=== PATIENT | male | born 1935 | race Caucasian/White ===

== ENCOUNTER → 2016-09-08 | Outpatient (CLI) | payer OTHER ==
[2016-09-08 12:38] LABS: ESTIMATED AVERAGE GLUCOSE 146 mg/dl; HA1C FLAG Normal (Normal)
[2016-09-08 12:58] LABS: ALT/SGPT 26 U/L (12-78); AST/SGOT 22 U/L (15-37); BLOOD UREA NITROGEN 13 mg/dl (7-18); BUN/CREATININE RATIO 13.5 (10-20); CALCIUM 9.1 mg/dl (8.5-10.1); CARBON DIOXIDE 27 mmol/L (21-32); CHLORIDE 103 mmol/L (98-107); CHOLESTEROL 112 mg/dl (0-200); CREATININE 0.96 mg/dl (0.60-1.40); GLUCOSE 169 mg/dl (70-99); POTASSIUM 3.9 mmol/L (3.5-5.1); SODIUM 137 mmol/L (136-145); TRIGLYCERIDES 89 mg/dl (0-150); VERY LOW DENSITY LIPOPROT CALC 18 mg/dl
[2016-09-08 13:01] LABS: ALB/GLOB RATIO 0.8 (0.9-2); ALKALINE PHOSPHATASE 67 U/L (45-117); CHOLESTEROL/HDL RATIO 2.7; HDL CHOLESTEROL 42 mg/dl; LDL CHOLESTEROL CALCULATED 52 mg/dl
[2016-09-08 13:09] LABS: RATIO 7.6 mcg/mg (0-30.0)
== END | disposition home or self-care (01) ==
LOC: C.LAB 11:37
PROVIDERS: ATTEND Family Medicine
DX: R73.09 Other abnormal glucose (principal)

== ENCOUNTER 2023-03-07 15:39 | Inpatient (IN) ==
--- NOTE | 2023-03-07 16:03 | ED Triage Note ---
Date of Service March 07, 2023 Provider in Triage Author: Juana Barajas History of Present Illness This patient was briefly evaluated while in triage. An abbreviated physical exam was performed. This patient is a 87-year-old Male who presents to the ED for evaluation of BLE edema and pain worsening over the last few days. Pt denies chest pain, or shob. Physical Exam Initial orders for labs and / or imaging were placed and patient was placed in the waiting area until a bed is available. Please see further documentation for the full ED course.
--- NOTE | 2023-03-07 17:03 | XRay Report ---
XR chest 1V not portable HISTORY: Lower extremity edema. COMPARISON: Chest 01/22/2022. FINDINGS: No pneumothorax. No focal lung consolidations to suggest a pneumonia. The heart remains enl arged. There is right greater than left interstitial/vascular thickening consistent with mild pulmona ry edema. There are small bilateral pleural effusions which have developed in the interval. Scattered calcified pleural plaques are again noted. There are degenerative changes within the shoulders. Righ t basilar linear densities favor subsegmental atelectasis. IMPRESSION: Cardiomegaly with interval development of mild interstitial pulmonary edema and small bilateral pleur al effusions. ACT 112: Negative or not required by law. Electronically signed by: Barry Zhong M.D. 03/07/2023 5:01 PM
--- NOTE | 2023-03-07 18:28 | Emergency Department Note ---
Impression & Plan Hypervolemia, Pulmonary edema, Bilateral cellulitis of lower leg ED Provider Note NAME: HUSSEIN SMART AGE: 87 SEX: M ARRIVES VIA: Walk-In INFORMANT: Patient ED PROVIDER(S): Byron Roberts MD CHIEF COMPLAINT: Leg swelling and redness, referred. PLAN: Disposition: Admit. MEDICAL DECISION MAKING: The patient is a pleasant 87-year-old gentleman with a past medical history of CHF, hypertension who presents to the emergency department via walk-in for evaluation of worsening bilateral lower extremity swelling and redness, referred by his PCP after concern was raised by his home physical therapist. The patient admits that he often forgets to take his medications which includes Lasix. He also does not weigh himself regularly. He does live home alone. He denies any recent fevers, chills, cough, congestion, GI or symptoms. Of note, the patient did arrive to emergency department during time of high volume, acuity and prolonged emergency department waiting times. Critical pathways initiated from triage. On my evaluation in the B pod hallway as the patient was waiting in the B pod subwait the patient is in no acute distress, afebrile with blood pressure 160s/70s in triage and vital signs otherwise stable. He appears hypervolemic with 2+ bilateral lower extremity pitting edema with mild erythema, warmth and superficial ulceration anteriorly of the lower legs bilaterally. There is increased serous weeping of the right lower extremity. EKG without overt acute ischemia. Chest x-ray demonstrates congestive change with mild pulmonary edema per my preliminary interpretation. WBC 4K, nonspecific. H/H within normal limits. Platelets 105K decreased from prior, nonspecific. Chemistry without metabolic acidosis. Electrolytes without significant abnormality. LFTs with total bilirubin 1.7, nonspecific and LFTs otherwise unremarkable. BNP is elevated at 300s consistent with the patient's hypervolemia. High-sensitivity troponin within normal limits. Procalcitonin undetectable. Treatment initiated with IV Lasix for hypervolemia. Cefepime and daptomycin ordered for initial treatment of bilateral lower extremity cellulitis. Given the patient's hypervolemia with development of suspected superimposed cellulitis the patient does agree with plan for admission for further management. Case was discussed with Dr. Srivastava, [facility], who will evaluate the patient for admission. Triage Nursing notes reviewed and agree them. Prior/external medical records reviewed Vital Signs: reviewed Differential diagnosis: Cellulitis, abscess, MRSA infection, DVT, necrotizing fasciitis, dermatitis, drug eruption, allergic reaction, as well as other pathologies. ER treatment provided: See below. Diagnostics interpreted by me: ECG: Sinus rhythm first-degree block, 76 bpm. PVCs, left anterior fascicular block, no overt ST elevation or depression, QTc 510, QRS 90. Cardiac Monitoring: An order for continuous cardiac monitoring was placed and demonstrated Sinus rhythm first-degree block, 76 bpm. PVCs. Laboratory studies: See below Imaging studies: See below Consultation(s): Case was discussed with Dr. Srivastava, [facility] hospitalist, who will evaluate the patient for admission. HPI: The patient is a pleasant 87-year-old gentleman with a past medical history of CHF, hypertension who presents to the emergency department via walk-in for evaluation of worsening bilateral lower extremity swelling and redness, referred by his PCP after concern was raised by his home physical therapist. The patient admits that he often forgets to take his medications which includes Lasix. He also does not weigh himself regularly. He does live home alone. He denies any recent fevers, chills, cough, congestion, GI or symptoms. ROS: See above HPI for pertinent positives & negatives. A total of 10 systems reviewed and were otherwise negative. VITALS:See Below PHYSICAL EXAMINATION: GENERAL: Awake, alert, chronically ill-appearing, in no distress HENT: Normocephalic, atraumatic. Oropharynx unremarkable. EYES: Normal conjunctiva. Sclera non-icteric. NECK: Supple. No nuchal rigidity. FROM. No JVD. RESPIRATORY: Diminished at bases and otherwise clear to auscultation. CARDIAC: Regular rate, normal rhythm. Extremities warm and well perfused. Pulses equal. ABDOMEN: Soft, non-distended. No tenderness to palpation. No rebound or guarding. No masses. RECTAL: Deferred. MUSCULOSKELETAL: Chest examination reveals no tenderness. The back is symmetrical on inspection without obvious abnormality. There is no CVA tenderness to palpation. No joint edema. LOWER EXTREMITIES: 2+ bilateral lower extremity pitting edema with mild erythema, warmth and superficial ulceration anteriorly of the lower legs bilaterally. There is increased serous weeping of the right lower extremity. NEURO: Normal sensorium. No sensory or motor deficits noted. SKIN: No rash or jaundice noted. Byron E Cross, MD Past Med/Surg History Medical History Hypertension CHF (congestive heart failure) Social History Smoking Status: Never smoker Hx Alcohol Use: Yes Alcohol type: beer Hx Substance Use: No Preferred Language: Romanian Rib Matcher And Fitter Required: No Beliefs That Will Affect Care: None Current Living Situation: Alone Feels Safe at Home: Yes Assistive Devices: Walker Allergies Allergies Allergy/AdvReac Type Severity Reaction Status Date / Time No Known Allergies Allergy Unverified 03/07/23 21:07 Home Meds Home Medications Medication Instructions Recorded Confirmed atenolol 25 mg tablet 25 mg PO QAM 09/07/20 03/07/23 furosemide 40 mg tablet 40 mg PO BID 09/07/20 03/07/23 baclofen 10 mg tablet 5 mg PO TID 03/07/23 03/07/23 citalopram 20 mg tablet 20 mg PO HS 03/07/23 03/07/23 folic acid 1 mg tablet 1 mg PO QAM 03/07/23 03/07/23 metformin 500 mg tablet 500 mg PO QAM 03/07/23 03/07/23 naproxen sodium 220 mg tablet 220 mg PO QAM 03/07/23 03/07/23 spironolactone 25 mg tablet 50 mg PO BID 03/07/23 03/07/23 Results & Data (ED) Vital Signs Vital Signs - 24 hr 03/07/23 15:58 03/07/23 19:52 Temperature 36.3 C L Temperature Source Temporal Artery Scan Pulse Rate 60 50 L Respiratory Rate 20 Respiratory Effort / Characteristics Non-Labored Spontaneous Respiratory Depth Normal Respiratory Pattern Regular Blood Pressure 167/75 H Blood Pressure Mean 105 Pulse Oximetry 96 Oxygen Delivery Method Room Air Sepsis Recent Fever Within 48 Hours No Sepsis New/Unexplained Change in Mental Status No Sepsis Action Taken by Nursing No Action Required Laboratory Data Attestation: I reviewed the patient's lab results. 03/07/23 17:56 03/07/23 17:56 Lab Results 03/07/23 03/07/23 Range/Units 17:56 20:25 WBC 4.05 L (4.8-10.8) K/ul RBC 4.85 (4.70-6.10) M/uL Hgb 16.0 (14.0-18.0) g/dl Hct 47.2 (42.0-52.0) % MCV 97.3 (80.0-100.0) fL MCH 33.0 (25.0-34.0) pg MCHC 33.9 (32.0-36.0) g/dL RDW Std Deviation 47.7 H (36.4-46.3) fL RDW Coeff of Keegan 13.3 (11.5-14.5) % Plt Count 105 L (130-400) K/uL MPV 10.1 (9.4-12.4) fL Immature Gran % (Auto) 0.5 % Neut % (Auto) 62.2 % Lymph % (Auto) 23.7 % [place] % (Auto) 9.1 % Eos % (Auto) 4.0 % Baso % (Auto) 0.5 % Neut # (Auto) 2.52 (1.40-6.50) K/uL Lymph # (Auto) 0.96 L (1.20-3.40) K/uL [place] # (Auto) 0.37 (0.11-0.59) K/uL Eos # (Auto) 0.16 (0.00-0.50) K/uL Baso # (Auto) 0.02 (0.00-0.20) K/uL Immature Gran # (Auto) 0.02 (0.01-0.20) K/uL Sodium 133 L (136-145) mmol/L Potassium 4.3 (3.5-5.1) mmol/L Chloride 100 (98-107) mmol/L Carbon Dioxide 26 (21-32) mmol/L Anion Gap 7 (3-11) BUN 14 (6-23) mg/dl Creatinine 0.70 (0.6-1.4) mg/dl Est Cr Clr Drug Dosing 96.7 ml/min Est GFR ( Amer) 98.3 ml/min Est GFR (Non-Af Amer) 84.9 ml/min BUN/Creatinine Ratio 20.0 (10-20) Glucose 110 H (70-99(Fasting)) mg/dl Calcium 9.3 (8.6-10.3) mg/dl Total Bilirubin 1.7 H (0.2-1.0) mg/dl AST 33 (13-39) U/L ALT 16 (7-52) U/L Alkaline Phosphatase 112 H (34-104) U/L Troponin I High Sens 5.8 (0-20) pg/ml B-Natriuretic Peptide 303 H (0-100) pg/ml Total Protein 7.6 (6.0-8.3) gm/dl Albumin 3.9 (3.4-5.0) gm/dl Globulin 3.7 (2.5-4.0) gm/dl Albumin/Globulin Ratio 1.1 (0.9-2) Procalcitonin < 0.05 (0-0.5) ng/ml Administered Medications Baclofen (Baclofen 10 Mg Tab) 5 mg PO TID [facility] Stop: 04/06/23 22:19 Last Admin: 03/08/23 00:34 Dose: 5 mg Documented By: DUNIA Citalopram Hydrobromide (Citalopram 20 Mg Tab) 20 mg PO HS [facility] Stop: 04/06/23 22:19 Last Admin: 03/08/23 00:33 Dose: 20 mg Documented By: DUNIA Enoxaparin Sodium (Enoxaparin Inj 40 Mg/0.4 Ml Syr) 40 mg SQ HS [facility] Stop: 04/06/23 22:44 Last Admin: 03/08/23 00:33 Dose: 40 mg Documented By: DUNIA Daptomycin 550 mg/ Syringe 11 mls @ 5.5 mls/min IV Q24H [facility]; Protocol Stop: 03/09/23 19:14 Last Admin: 03/07/23 19:49 Dose: 5.5 mls/min Documented By: BOBBY Insulin Aspart (Insulin Aspart Per Unit Charge) 0 units SC [facility] Stop: 04/06/23 22:19 Last Admin: 03/08/23 00:45 Dose: Not Given Documented By: DUNIA Spironolactone (Spironolactone 25 Mg Tab) 50 mg PO BID17 [facility] Stop: 04/06/23 22:19 Last Admin: 03/08/23 00:34 Dose: 50 mg Documented By: DUNIA Discontinued Medications Furosemide (Furosemide 40 Mg/4 Ml Vial) 40 mg IV ONE ONE Stop: 03/07/23 19:07 Last Admin: 03/07/23 19:49 Dose: 40 mg Documented By: BOBBY Cefepime HCl (Maxipime) 2,000 mg in 20 mls @ 5 mls/min IV NOW STA; Protocol Stop: 03/07/23 19:17 Last Admin: 03/07/23 19:49 Dose: 5 mls/min Documented By: BOBBY Imaging Data Radiologist's Impression: Chest X-Ray 03/07/23 16:03 XR chest 1V not portable HISTORY: Lower extremity edema. COMPARISON: Chest 01/22/2022. FINDINGS: No pneumothorax. No focal lung consolidations to suggest a pneumonia. The heart remains enlarged. There is right greater than left interstitial/vascular thickening consistent with mild pulmonary edema. There are small bilateral pleural effusions which have developed in the interval. Scattered calcified pleural plaques are again noted. There are degenerative changes within the shoulders. Right basilar linear densities favor subsegmental atelectasis. IMPRESSION: Cardiomegaly with interval development of mild interstitial pulmonary edema and small bilateral pleural effusions. ACT 112: Negative or not required by law. Electronically signed by: Barry Zhong M.D. 03/07/2023 5:01 PM Discharge Plan Visit Data Chief Complaint: Leg Injury/Pain Stated Complaint: ?CELLULITIS IN BOTH LEGS ED Provider: Byron Roberts Discharge Problem: Hypervolemia, Pulmonary edema, Bilateral cellulitis of lower leg Patient Disposition: Admitted As Inpatient Discharge Instructions Interventions: ED Discharge Assessment Last Done: 03/07/23 22:21 Discharge Problem: Hypervolemia Qualifiers: Hypervolemia type: unspecified Qualified Code(s): E87.70 - Fluid overload, unspecified Pulmonary edema Qualifiers: Chronicity: acute Qualified Code(s): J81.0 - Acute pulmonary edema
[2023-03-07 18:31] LABS: Albumin Globulin Ratio 1.1 (0.9-2); Albumin Level 3.9 gm/dl (3.4-5.0); Bilirubin,Total 1.7 mg/dl (0.2-1.0); Calcium 9.3 mg/dl (8.6-10.3); Creatinine Clr Calc Pharmacy 96.7 ml/min; Est GFR (African American) 98.3 ml/min; Est GFR (Non-African American) 84.9 ml/min; Globulin 3.7 gm/dl (2.5-4.0); Potassium 4.3 mmol/L (3.5-5.1); Total Protein 7.6 gm/dl (6.0-8.3)
[2023-03-07 18:34] LABS: Basophils # (auto) 0.02 K/uL (0.00-0.20); Basophils % (auto) 0.5 %; Eosinophils # (auto) 0.16 K/uL (0.00-0.50); Hematocrit (blood only) 47.2 % (42.0-52.0); Immature Granulocytes # (auto) 0.02 K/uL (0.01-0.20); Immature Granulocytes % (auto) 0.5 %; Lymphocytes # (auto) 0.96 K/uL (1.20-3.40); Lymphocytes % (auto) 23.7 %; Mean Corpuscular Hgb Conc 33.9 g/dL (32.0-36.0); Mean Corpuscular Volume 97.3 fL (80.0-100.0); Mean Platelet Volume 10.1 fL (9.4-12.4); Monocytes # (auto) 0.37 K/uL (0.11-0.59); Monocytes % (auto) 9.1 %; Neutrophils # (auto) 2.52 K/uL (1.40-6.50); Neutrophils % (auto) 62.2 %; Platelet Count 105 K/uL (130-400); RDW Coefficient of Variation 13.3 % (11.5-14.5); RDW Standard Deviation 47.7 fL (36.4-46.3); Red Blood Count 4.85 M/uL (4.70-6.10); White Blood Count 4.05 K/ul (4.8-10.8)
[2023-03-07] MEDS ORDERED: FUROSEMIDE 40 MG/4 ML VIAL IV ONE (19:06)
[2023-03-07] MEDS ORDERED: CEFEPIME 2,000 MG/20 ML VIAL IV STA (19:14)
[2023-03-07] MEDS ORDERED: DAPTOmycin 550 MG in SYRINGE 0 ML IV SCH (19:15)
[2023-03-07 20:05] LABS: Troponin I High Sensitivity 5.8 pg/ml (0-20)
--- NOTE | 2023-03-07 21:25 | History & Physical Report ---
Date of Service March 07, 2023 Assessment & Plan (1) Acute CHF: Plan: 87-year-old male with past medical history significant for hypertension, diabetes, CHF, depression, ambulatory dysfunction comes because of worsening lower extremity edema. Lower extremity edema getting worse lately. Seems to referred by PCP when physical therapy was concerned about his lower extreme edema. Ambulates with a walker. Patient denies any chest pain. Patient denies a Acute CHF Possible acute diastolic CHF Seems forgetting his Lasix Placed on IV Lasix 40 mg twice daily Continue home spironolactone Daily weights I's and O's Echocardiogram Telemetry floor Consult cardiology in a.m. for further recommendations Diabetes Hold metformin Sliding scale Follow the blood sugars and HbA1c levels Hypertension On atenolol and diuretics Will monitor Obesity May need sleep study Ambulatory dysfunction PT OT when stable DVT prophylaxis Lovenox Disposition Telemetry floor Full code History of Present Illness Chief Complaint: Worsening lower extremity edema Primary Care Provider: Mahi Arvizu MD 87-year-old male with past medical history significant for hypertension, diabetes, CHF, depression, ambulatory dysfunction comes because of worsening lower extremity edema. Lower extremity edema getting worse lately. Seems to referred by PCP when physical therapy was concerned about his lower extreme edema. Ambulates with a walker. Patient denies any chest pain. Patient denies any shortness of breath. No headache. Has some runny nose. No sore throat or cough. No fevers. No nausea. No abdominal pain. Normal bowel and bladder movements. Currently resting comfortably and hemodynamically stable. Past medical history. As mentioned above Past surgical history patient denies any surgeries Social history. States quit smoking 40 years ago. Drinks about 6-7 beers in a week mostly on weekends. Family history. Father. Alcoholism. Allergies Allergy/AdvReac Type Severity Reaction Status Date / Time No Known Allergies Allergy Unverified 03/07/23 21:07 Home Medications Medication Instructions Recorded Confirmed Type atenolol 25 mg tablet 25 mg PO QAM 09/07/20 03/07/23 History furosemide 40 mg tablet 40 mg PO BID 09/07/20 03/07/23 History baclofen 10 mg tablet 5 mg PO TID 03/07/23 03/07/23 History citalopram 20 mg tablet 20 mg PO HS 03/07/23 03/07/23 History folic acid 1 mg tablet 1 mg PO QAM 03/07/23 03/07/23 History metformin 500 mg tablet 500 mg PO QAM 03/07/23 03/07/23 History naproxen sodium 220 mg tablet 220 mg PO QAM 03/07/23 03/07/23 History spironolactone 25 mg tablet 50 mg PO BID 03/07/23 03/07/23 History Past Med/Surg History Medical History Hypertension CHF (congestive heart failure) Social History Smoking Status: Never smoker Hx Alcohol Use: Yes Alcohol type: beer Hx Substance Use: No Preferred Language: Romanian Granulator Operator Required: No Beliefs That Will Affect Care: None Current Living Situation: Alone Feels Safe at Home: Yes Assistive Devices: Walker Review of Systems Review of Systems: All systems reviewed & are unremarkable except as noted in HPI & below Physical Exam Physical Exam: General- Not in distress Head- atraumatic Eyes- PERRL. ENT- oropharynx clear Neck- supple, no JVD. Lungs- clear to auscultation no wheezing or crackles. Heart- regular rate and rhythm; no murmur, no gallop. Abdomen- normal bowel sounds, soft, nontender, no distension. Extremities- b/l gross lower extremity edema present with mild erythematous changes with some superficial ulcer on right lee Neuro- alert, oriented x 3; PERRL, no facial palsy; no dysarthria; moves extremities. Skin- warm & dry Results & Data Results & Data Vital Signs (Past 12 Hours) Vital Signs Temp Pulse Resp BP Pulse Ox O2 Del Method 03/07/23 19:52 50 L 03/07/23 15:58 36.3 C L 60 20 167/75 H 96 Room Air Diagnostic Findings Laboratory Results WBC 4.05 K/ul (4.8-10.8) L 03/07/23 17:56 RBC 4.85 M/uL (4.70-6.10) 03/07/23 17:56 Hgb 16.0 g/dl (14.0-18.0) 03/07/23 17:56 Hct 47.2 % (42.0-52.0) 03/07/23 17:56 MCV 97.3 fL (80.0-100.0) 03/07/23 17:56 MCH 33.0 pg (25.0-34.0) 03/07/23 17:56 MCHC 33.9 g/dL (32.0-36.0) 03/07/23 17:56 RDW Std Deviation 47.7 fL (36.4-46.3) H 03/07/23 17:56 RDW Coeff of Keegan 13.3 % (11.5-14.5) 03/07/23 17:56 Plt Count 105 K/uL (130-400) L 03/07/23 17:56 MPV 10.1 fL (9.4-12.4) 03/07/23 17:56 Immature Gran % (Auto) 0.5 % 03/07/23 17:56 Neut % (Auto) 62.2 % 03/07/23 17:56 Lymph % (Auto) 23.7 % 03/07/23 17:56 [place] % (Auto) 9.1 % 03/07/23 17:56 Eos % (Auto) 4.0 % 03/07/23 17:56 Baso % (Auto) 0.5 % 03/07/23 17:56 Neut # (Auto) 2.52 K/uL (1.40-6.50) 03/07/23 17:56 Lymph # (Auto) 0.96 K/uL (1.20-3.40) L 03/07/23 17:56 [place] # (Auto) 0.37 K/uL (0.11-0.59) 03/07/23 17:56 Eos # (Auto) 0.16 K/uL (0.00-0.50) 03/07/23 17:56 Baso # (Auto) 0.02 K/uL (0.00-0.20) 03/07/23 17:56 Immature Gran # (Auto) 0.02 K/uL (0.01-0.20) 03/07/23 17:56 Sodium 133 mmol/L (136-145) L 03/07/23 17:56 Potassium 4.3 mmol/L (3.5-5.1) 03/07/23 17:56 Chloride 100 mmol/L (98-107) 03/07/23 17:56 Carbon Dioxide 26 mmol/L (21-32) 03/07/23 17:56 Anion Gap 7 (3-11) 03/07/23 17:56 BUN 14 mg/dl (6-23) 03/07/23 17:56 Creatinine 0.70 mg/dl (0.6-1.4) 03/07/23 17:56 Est Cr Clr Drug Dosing 96.7 ml/min 03/07/23 17:56 Est GFR ( Amer) 98.3 ml/min 03/07/23 17:56 Est GFR (Non-Af Amer) 84.9 ml/min 03/07/23 17:56 BUN/Creatinine Ratio 20.0 (10-20) 03/07/23 17:56 Glucose 110 mg/dl (70-99(Fasting)) H 03/07/23 17:56 Calcium 9.3 mg/dl (8.6-10.3) 03/07/23 17:56 Total Bilirubin 1.7 mg/dl (0.2-1.0) H 03/07/23 17:56 AST 33 U/L (13-39) 03/07/23 17:56 ALT 16 U/L (7-52) 03/07/23 17:56 Alkaline Phosphatase 112 U/L (34-104) H 03/07/23 17:56 Troponin I High Sens 5.8 pg/ml (0-20) 03/07/23 17:56 B-Natriuretic Peptide 303 pg/ml (0-100) H 03/07/23 17:56 Total Protein 7.6 gm/dl (6.0-8.3) 03/07/23 17:56 Albumin 3.9 gm/dl (3.4-5.0) 03/07/23 17:56 Globulin 3.7 gm/dl (2.5-4.0) 03/07/23 17:56 Albumin/Globulin Ratio 1.1 (0.9-2) 03/07/23 17:56 Procalcitonin < 0.05 ng/ml (0-0.5) 03/07/23 20:25 Impressions Chest X-Ray 03/07/23 16:03 XR chest 1V not portable HISTORY: Lower extremity edema. COMPARISON: Chest 01/22/2022. FINDINGS: No pneumothorax. No focal lung consolidations to suggest a pneumonia. The heart remains enlarged. There is right greater than left interstitial/vascular thickening consistent with mild pulmonary edema. There are small bilateral pleural effusions which have developed in the interval. Scattered calcified pleural plaques are again noted. There are degenerative changes within the shoulders. Right basilar linear densities favor subsegmental atelectasis. IMPRESSION: Cardiomegaly with interval development of mild interstitial pulmonary edema and small bilateral pleural effusions. ACT 112: Negative or not required by law. Electronically signed by: Barry Zhong M.D. 03/07/2023 5:01 PM ECG Additional Comments: ECG. Sinus rhythm with first-degree AV block with PVCs or fusion complexes at a rate of 76. Left anterior fascicle block. QTc 510 Code Status & VTE Plan VTE Prophylaxis Plan VTE Prophylaxis will be ordered: Yes
[2023-03-07] MEDS ORDERED: GLUCOSE 10 TAB/TUBE PO PRN (22:20)
[2023-03-07] MEDS ORDERED: NITROGLYCERIN SL 0.4 MG/TAB TAB SL PRN (22:20)
[2023-03-07] MEDS ORDERED: GLUCOSE 40% GEL 15 GM TUBE PO PRN (22:20)
[2023-03-07] MEDS ORDERED: GLUCAGON FOR INJ 1 MG VIAL SQ PRN (22:20)
[2023-03-07] MEDS ORDERED: POLYETHYLENE (MIRALAX) 17 GM PACK PO PRN (22:20)
[2023-03-07] MEDS ORDERED: CARBOHYDRATES FOR HYPOGLYCEMIA PO PRN (22:20)
[2023-03-07] MEDS ORDERED: DEXTROSE 50% 50 ML SYRINGE IV PRN (22:20)
[2023-03-08] MEDS: ENOXAPARIN INJ 40 MG/0.4 ML SYR SQ SCH ×2 (00:33→19:55)
[2023-03-08] MEDS: CITALOPRAM 20 MG TAB PO SCH ×2 (00:33→19:55)
[2023-03-08] MEDS: BACLOFEN 10 MG TAB PO SCH ×4 (00:34→19:55)
[2023-03-08] MEDS: SPIRONOLACTONE 25 MG TAB PO SCH ×3 (00:34→17:34)
[2023-03-08] MEDS: INSULIN ASPART PER UNIT CHARGE SC SCH ×5 (00:45→21:41)
[2023-03-08 06:20] LABS: Basophils # (auto) 0.02 K/uL (0.00-0.20); Basophils % (auto) 0.4 %; Eosinophils # (auto) 0.19 K/uL (0.00-0.50); Eosinophils % (auto) 4.1 %; Hematocrit (blood only) 41.2 % (42.0-52.0); Hemoglobin 14.2 g/dl (14.0-18.0); Immature Granulocytes # (auto) 0.01 K/uL (0.01-0.20); Immature Granulocytes % (auto) 0.2 %; Lymphocytes # (auto) 0.96 K/uL (1.20-3.40); Lymphocytes % (auto) 20.5 %; Mean Corpuscular Hemoglobin 33.1 pg (25.0-34.0); Mean Corpuscular Hgb Conc 34.5 g/dL (32.0-36.0); Mean Platelet Volume 9.9 fL (9.4-12.4); Monocytes # (auto) 0.48 K/uL (0.11-0.59); Monocytes % (auto) 10.2 %; Neutrophils # (auto) 3.03 K/uL (1.40-6.50); Neutrophils % (auto) 64.6 %; Platelet Count 117 K/uL (130-400); RDW Coefficient of Variation 13.4 % (11.5-14.5); RDW Standard Deviation 47.5 fL (36.4-46.3); Red Blood Count 4.29 M/uL (4.70-6.10); White Blood Count 4.69 K/ul (4.8-10.8)
[2023-03-08 06:27] LABS: BUN Creatinine Ratio 18.7 (10-20); Calcium 8.6 mg/dl (8.6-10.3); Creatinine Clr Calc Pharmacy 90.3 ml/min; Est GFR (African American) 95.6 ml/min; Est GFR (Non-African American) 82.5 ml/min; Magnesium 1.7 mg/dl (1.7-2.4); Potassium 3.7 mmol/L (3.5-5.1)
[2023-03-08 06:41] LABS: Troponin I High Sensitivity 10.1 pg/ml (0-20)
[2023-03-08 07:39] LABS: Estimated Average Glucose 123 mg/dl; Hemoglobin A1C 5.9 % (4.5-5.6)
--- NOTE | 2023-03-08 08:15 | Electrocardiogram Report ---
Test Reason : Blood Pressure : / mmHG Vent. Rate : 076 BPM Atrial Rate : 076 BPM P-R Int : 310 ms QRS Dur : 090 ms QT Int : 454 ms P-R-T Axes : 057 -45 000 degrees QTc Int : 510 ms Sinus rhythm with 1st degree A-V block with Premature ventricular complexes Left anterior fascicular block Poor R wave progression, consider anterior LA vs. lead placement vs. LVH Abnormal ECG When compared with ECG of 22-JAN-2022 22:22, Premature ventricular complexes now present Confirmed by Kumar Love ([id number]) on 03/08/2023 8:15:09 AM Referred By: REFERRED SELF Confirmed By:Kumar Love
[2023-03-08] MEDS ORDERED: ATENOLOL 25 MG TABLET PO SCH (09:00)
[2023-03-08] MEDS: cefTRIAXone SODIUM 2,000 MG in DEXTROSE 5 % MINI-B 50 ML IV SCH (09:16)
[2023-03-08] MEDS: FOLIC ACID 1 MG TAB PO SCH (09:16)
[2023-03-08] MEDS: FUROSEMIDE 40 MG/4 ML VIAL IV SCH ×2 (09:17→17:33)
--- NOTE | 2023-03-08 11:11 | Cardiology Consultation ---
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 HS troponin negative x2 BNP minimally elevated Chest xray with small b/l pleural effusions. Furosemide 40 mg IV BID initiated yesterday. Continue Monitor renal function. Mild hyponatremia noted yesterday, improving today with diuresis. Supplement potassium as needed Monitor I+O's Fluid restriction of 1500 ml Continue spironolactone Evidence of intermittent possible 2nd degree AV block, Wenckebach. At times appears to be a 2:1 (possible 3rd degree) AV block. Stop atenolol Monitor. Patient admits he does not want aggressive testing or invasive procedures. He is asymptomatic. Evidence of LE cellulitis - continue antibiotics per hospitalist. Hypertension - -may need additional antihypertensives with stopping atenolol. -Continue furosemide/spironolactone for now Consider palliative care consult based on patient's wishes of not wanting any aggressive testing/measures. He is reporting "I just want to ". He also may not be able to return home? May need to consider placement Case discussed with Dr. Negrete I spent a total of 60 minutes on the date of service in preparation, delivery, and documentation of the care provided to this patient, excluding any time spent in the performance of separately billed services. Dara Dobbs PA-C Department of Cardiology, [facility] This chart was completed in part utilizing Speech Voice Recognition Software. Grammatical errors, random word insertions, pronoun errors, and incomplete sentences are an occasional consequence of this system due to software limitations, ambient noise, and hardware issues. Any formal questions or concerns about the content, text, or information contained within the body of this dictation should be directly addressed to the provider for clarification. Supervising Physician Co-Signing Physician Notes Attending attestation: I have reviewed the advanced practitioner's documentation and agree with the plan of care. I accept the responsibility for the associated risk of managing the patient. Subjective: Patient in good spirits. Notes that he takes furosemide for lower extremity edema but it has been progressively worse recently. Denies chest discomfort, shortness of breath, lightheadedness or dizziness. Exam: Pulmonary: Lungs clear to auscultation bilaterally Cardiovascular: Bradycardic, no murmurs, 2+ lower extremity edema with excoriations Data: Echocardiogram performed today revealed mild concentric left ventricular hypertrophy, no regional wall motion abnormality, LVEF normal in the range of 55 to 60%, the pulmonary artery systolic pressure is estimated to be 41 mmHg (mildly elevated).The Doppler assessment for diastolic dysfunction is indeterminate due to the irregular rhythm EKG and telemetry data reviewed: Tracings are technically limited due to the presence of baseline artifact. At times patient appears to be in a sinus rhythm with first-degree AV block with frequent PACs. However intermittent 2: 1 AV block appears to be present as well as type I second-degree AV block (Wenckebach block). The presence of intermittent third-degree AV block cannot be excluded. Impression/ Plan: Lower extremity edema, perhaps related to diastolic dysfunction, or venous insufficiency: Agree with furosemide and empiric antibiotics Bradycardia: Hold atenolol Patient hemodynamically stable with no symptoms suggestive of symptomatic bradycardia. The patient's first impression is that he would not want to have an invasive procedure performed such as a pacemaker but on further discussion with me he stated that he would like to think about things more. I spent a total of 20 minutes coordinating, documenting, and providing care for this patient excluding time spent in the performance of separately billed services or time spent by another provider. Asher Negrete DO History of Present Illness Reason for Consultation: LE edema; CHF Requesting Physician: Dr. Cabello Attending Physician: Jesús Cabello MD History of Present Illness Patient is an 87 year old male who presented to [facility] upon recommendations from his PCP and home health/PT for worsening LE edema. He is a poor historian. No significant information in outpatient records. Patient denies cardiovascular history of CAD, PR, CHF, arrhythmia. He has never seen a receiver setter. He reports he stopped taking all his home medications "a long time ago". He reports he just "wants to ". He is unable to tell me his medications but he is able to let me know he should have been taking a "water pill" but stopped this. Patient reports he had home PT the other day. The physical therapist was concerned with his legs and open ulcerations. Later in the day he received a call from his family doctor instructing him to come to the ER. He lives in a an apartment below his daughters house but admits he "does not see her very often". Lives alone otherwise. At time of consult, patient resting in bed. He admits to ongoing LE edema but denies other symptoms of SOB, CP, dizziness or lightheadedness. He admits he does not want alot of testing or anything done. Earlier today there was concern regarding episode of bradycardia where is HR dropped in the 40's. Patient was sleeping during this time and asymptomatic. EKG was obtained which demonstrated possible 2:1 AV block (2nd vs 3rd degree). He did receive morning atenolol this morning, which was reported on home med list. But patient admits he was not taking. BNP mildly elevated but not when based on age. HS troponin negative x2 since admission. Chest xray with mild pulm vascular congestion, small b/l pleural effusions. Allergies Allergy/AdvReac Type Severity Reaction Status Date / Time No Known Allergies Allergy Unverified 03/07/23 21:07 Home Medications Medication Instructions Recorded Confirmed Type atenolol 25 mg tablet 25 mg PO QAM 09/07/20 03/07/23 History furosemide 40 mg tablet 40 mg PO BID 09/07/20 03/07/23 History baclofen 10 mg tablet 5 mg PO TID 03/07/23 03/07/23 History citalopram 20 mg tablet 20 mg PO HS 03/07/23 03/07/23 History folic acid 1 mg tablet 1 mg PO QAM 03/07/23 03/07/23 History metformin 500 mg tablet 500 mg PO QAM 03/07/23 03/07/23 History naproxen sodium 220 mg tablet 220 mg PO QAM 03/07/23 03/07/23 History spironolactone 25 mg tablet 50 mg PO BID 03/07/23 03/07/23 History Patient History Medical History Hypertension CHF (congestive heart failure) Social History Smoking Status: Never smoker Hx Alcohol Use: Yes Alcohol type: beer Hx Substance Use: No Preferred Language: Cuban Communication Ability: Effective Patient Services Manager Required: No Beliefs That Will Affect Care: None Current Living Situation: Alone Feels Safe at Home: Yes Assistive Devices: Walker Review of Systems Review of Systems: All systems reviewed & are unremarkable except as noted in HPI & below Physical Exam Constitutional: WD/WN, vitals as above + morbidly obese Respiratory: no respiratory distress Auscultation: + diminished lung sounds (faint bibasilar rales) Cardiovascular: Rate/Rhythm: regular rate Heart Sounds: no murmur (No audible murmurs) Extremities: + edema (2+ LE edema with b/l erythema with small ulcerations on pretibial region) Gastrointestinal (Abdomen): normal bowel sounds, soft, nontender, no hepatosplenomegaly Neurologic: PERRL, EOMI, accommodation nl, no face palsy, no dysarthria Results & Data Vital Signs (Past 12 Hours) Vital Signs Temp Pulse Pulse Resp BP BP Pulse Ox 03/08/23 10:15 48 L 16 153/51 H 96 03/08/23 09:15 79 18 141/74 H 98 03/08/23 07:39 67 29 H 147/67 H 96 03/08/23 07:39 36.7 C 67 20 147/67 H 98 03/08/23 07:32 66 24 150/107 H 92 03/08/23 07:11 53 L 03/08/23 04:00 61 26 H 145/64 H 90 03/08/23 03:00 62 26 H 147/61 H 92 03/08/23 03:00 03/08/23 02:02 57 L 24 155/56 H 92 03/08/23 00:42 60 26 H 162/59 H 94 03/07/23 23:37 58 L 03/07/23 23:37 65 22 148/84 H 94 O2 Del Method O2 Flow Rate 03/08/23 10:15 Nasal Cannula 2 03/08/23 09:15 Nasal Cannula 2 03/08/23 07:39 03/08/23 07:39 Nasal Cannula 3 03/08/23 07:32 Room Air 03/08/23 07:11 03/08/23 04:00 03/08/23 03:00 03/08/23 03:00 Room Air 03/08/23 02:02 03/08/23 00:42 03/07/23 23:37 03/07/23 23:37 Room Air Laboratory Results Cardiac Enzymes 03/07/23 03/08/23 Range/Units 17:56 05:21 AST 33 (13-39) U/L Troponin I High Sens 5.8 10.1 D (0-20) pg/ml B-Natriuretic Peptide 303 H (0-100) pg/ml Coagulation 03/07/23 Range/Units 17:56 B-Natriuretic Peptide 303 H (0-100) pg/ml CBC 03/07/23 03/08/23 Range/Units 17:56 05:21 WBC 4.05 L 4.69 L (4.8-10.8) K/ul RBC 4.85 4.29 L (4.70-6.10) M/uL Hgb 16.0 14.2 (14.0-18.0) g/dl Hct 47.2 41.2 L (42.0-52.0) % Plt Count 105 L 117 L (130-400) K/uL Neut # (Auto) 2.52 3.03 (1.40-6.50) K/uL Lymph # (Auto) 0.96 L 0.96 L (1.20-3.40) K/uL [place] # (Auto) 0.37 0.48 (0.11-0.59) K/uL Eos # (Auto) 0.16 0.19 (0.00-0.50) K/uL Baso # (Auto) 0.02 0.02 (0.00-0.20) K/uL Comprehensive Metabolic Panel 03/07/23 03/08/23 Range/Units 17:56 05:21 Sodium 133 L 135 L (136-145) mmol/L Potassium 4.3 3.7 (3.5-5.1) mmol/L Chloride 100 99 (98-107) mmol/L Carbon Dioxide 26 28 (21-32) mmol/L BUN 14 14 (6-23) mg/dl Creatinine 0.70 0.75 (0.6-1.4) mg/dl Glucose 110 H 114 H (70-99(Fasting)) mg/dl Calcium 9.3 8.6 (8.6-10.3) mg/dl AST 33 (13-39) U/L ALT 16 (7-52) U/L Alkaline Phosphatase 112 H (34-104) U/L Total Protein 7.6 (6.0-8.3) gm/dl Albumin 3.9 (3.4-5.0) gm/dl Intake and Output 03/07/23 03/08/23 03/08/23 22:59 06:59 14:59 Intake Total 50 / 50 Balance 50 / 50 Intake: IV 50 / 50 cefTRIAXone SODIUM 2,000 mg In 50 / 50 Dextrose 5 % Mini-B 50 ml @ 100 mls/hr IV Q24H [facility] Rx#: [id number] Other: Weight 120.4 kg 120.4 kg Weight Measurement Method Chair Scale Chair Scale Diagnostic Findings Telemetry reviewed: Sinus rhythm with intermittent 2nd degree (possible Wenckebach) vs intermittent 2:1 (possible 3rd degree AV block) noted. HR ranging 40-70's. No pauses. Patient has been asymptomatic. Echocardiogram reviewed from 03/08/23: Mild concentric LVH Normal LVEF at 55-60% Normal wall motion Elevated pulm pressure at 41 mmHg EKG on admission yesterday 03/07/23: Sinus with possible long first degree vs 2nd degree Wenckebach EKG this morning at time of "bradycardia" Sinus with possible Wenckebach vs 2:1 AV conduction Chest xray report reviewed dated 03/07/23: IMPRESSION: Cardiomegaly with interval development of mild interstitial pulmonary edema and small bilateral pleural effusions. Medications Administered Current Inpatient Medications Acetaminophen (Acetaminophen 325 Mg Tab) 650 mg PO Q4H PRN PRN Reason: Pain or Fever Stop: 04/06/23 22:19 Baclofen (Baclofen 10 Mg Tab) 5 mg PO TID [facility]ID Stop: 04/06/23 22:19 Last Admin: 03/08/23 09:15 Dose: 5 mg Citalopram Hydrobromide (Citalopram 20 Mg Tab) 20 mg PO HS REID Stop: 04/06/23 22:19 Last Admin: 03/08/23 00:33 Dose: 20 mg Dextrose (Dextrose 50% 50 Ml Syringe) 25 - 50 ml IV UD PRN; Protocol PRN Reason: Hypoglycemia Protocol Stop: 04/06/23 22:19 Enoxaparin Sodium (Enoxaparin Inj 40 Mg/0.4 Ml Syr) 40 mg SQ HS REID Stop: 04/06/23 22:44 Last Admin: 03/08/23 00:33 Dose: 40 mg Folic Acid (Folic Acid 1 Mg Tab) 1 mg PO DAILY [facility] Stop: 04/07/23 08:59 Last Admin: 03/08/23 09:16 Dose: 1 mg Furosemide (Furosemide 40 Mg/4 Ml Vial) 40 mg IV [id number] [facility] Stop: 04/07/23 08:59 Last Admin: 03/08/23 09:17 Dose: 40 mg Glucagon (Glucagon For Inj 1 Mg Vial) 1 mg SQ UD PRN; Protocol PRN Reason: Hypoglycemia Protocol Stop: 04/06/23 22:19 Glucose (Glucose 10 Tab/Tube) 4 - 8 tab PO UD PRN; Protocol PRN Reason: Hypoglycemia Treatment Stop: 04/06/23 22:19 Glucose (Glucose 40% Gel 15 Gm Tube) 15 - 30 gm PO UD PRN; Protocol PRN Reason: Hypoglycemia Protocol Stop: 04/06/23 22:19 Ceftriaxone Sodium 2,000 mg/ (Dextrose) 50 mls @ 100 mls/hr IV Q24H [facility]; Protocol Stop: 03/15/23 08:59 Last Infusion: 03/08/23 09:46 Dose: Infused Insulin Aspart (Insulin Aspart Per Unit Charge) 0 units SC ACHS [facility] Stop: 04/06/23 22:19 Last Admin: 03/08/23 09:15 Dose: 2 units Miscellaneous (Carbohydrates For Hypoglycemia ) 15 - 30 gm PO UD PRN PRN Reason: Hypoglycemia Protocol Stop: 04/06/23 22:19 Nitroglycerin (Nitroglycerin Sl 0.4 Mg/Tab Tab) 0.4 mg SL Q5M PRN PRN Reason: Chest Pain Stop: 04/06/23 22:19 Polyethylene Glycol (Polyethylene (Miralax) 17 Gm Pack) 17 gm PO DAILY PRN PRN Reason: Constipation Stop: 04/06/23 22:19 Spironolactone (Spironolactone 25 Mg Tab) 50 mg PO [id number] [facility] Stop: 04/06/23 22:19 Last Admin: 03/08/23 09:16 Dose: 50 mg
--- NOTE | 2023-03-08 12:02 | Electrocardiogram Report ---
Test Reason : Blood Pressure : / mmHG Vent. Rate : 116 BPM Atrial Rate : 088 BPM P-R Int : 088 ms QRS Dur : 004 ms QT Int : 232 ms P-R-T Axes : 240 000 224 degrees QTc Int : 322 ms Poor data quality, interpretation may be adversely affected Sinus rhythm with frequent Premature atrial complexes Pulmonary disease pattern Poor R wave progression, consider anterior [place] vs. lead placement vs. LVH Abnormal ECG When compared with ECG of 07-MAR-2023 17:17, Premature ventricular complexes no longer present Confirmed by Kumar Love ([id number]) on 03/08/2023 12:02:09 PM Referred By: REFERRED SELF Confirmed By:Kumar Love
[2023-03-08] MEDS ORDERED: MICONAZOLE NITRATE POWDER 85 GM EXT PRN (12:40)
--- NOTE | 2023-03-08 13:32 | Hospitalist Progress Note ---
Date of Service March 08, 2023 Assessment & Plan (1) Acute CHF: Plan: Patient is an 87 yr male with past medical history significant for hypertension, diabetes, CHF, depression, ambulatory dysfunction comes because of worsening lower extremity edema. Lower extremity edema getting worse lately. Seems to referred by PCP when physical therapy was concerned about his lower extreme edema. Ambulates with a walker. Patient denies any chest pain. Patient denies a Acute diastolic CHF --CXR:Cardiomegaly with interval development of mild interstitial pulmonary edema and small bilateral pleural effusions. --ECHO: Mild concentric LVH. Left ventricle wall motion is normal. EF 55 to 60%. Pulmonary artery systolic pressure is estimated to be 41 mmHg. Doppler assessment for left ventricular diastolic function is indeterminate due to underlying irregular rhythm. -- Continue IV Lasix Also on Aldactone Beta-will held due to bradycardia Monitor volume status, I's and O's Appreciate cardiology input Bradycardia Chronic could have underlying conduction disease 5 Beats NSVT asymptomatic Atenolol held due to bradycardia Patient not interested in aggressive measures/invasive procedures Cardiology on board Goals of care may need to be readdressed Possible B/L lower extremity cellulitis Blood cultures pending Empirically on Rocephin DM II HbA1c 5.9 Hold metformin Insulin sliding scale while hospitalized Monitor BGs Hypertension Hold atenolol due to bradycardia Monitor BP Obesity Sleep study as outpatient BMI 38 Ambulatory dysfunction PT OT when stable Fall precautions DVT Px: Lovenox SQ Code Status Full code Admission and Anticipated Discharge Date Admission Date: March 07, 2023 Subjective Patient is seen and examined at bedside Offers no complaints during my encounter Noted to be bradycardic on monitor Discussed with cardiology today Patient denies any chest pain, dyspnea, dizziness, nausea, vomiting, abdominal pain Review of Systems Review of Systems: All systems reviewed & are unremarkable except as noted in Subjective Physical Exam Physical Exam: Physical Exam: Vitals signs as noted above General Appearance:Obese, no apparent distress Head: normocephalic, Atraumatic Eyes: normal inspection, EOMI Neck: supple, Trachea midline Respiratory/Chest: Decreased breath sounds, CTA, No accessory muscle use Cardiovascular: S1, S2, No murmur, +Bradycardia Abdomen/GI:Soft, Non tender, Bowel sounds present Extremities/Musculoskeletal:normal inspection, 2+ B/L LE edema, erythema, +Abras ions, scabs Neurologic/Psych:AAOX3, grossly no focal neurological deficits Skin: normal color, warm Results & Data Results & Data Vital Signs (Past 12 Hours) Vital Signs Temp Pulse Pulse Resp BP BP Pulse Ox 03/08/23 11:35 36.6 C 47 L 22 147/66 H 96 03/08/23 10:15 48 L 16 153/51 H 96 03/08/23 09:15 79 18 141/74 H 98 03/08/23 07:39 67 29 H 147/67 H 96 03/08/23 07:39 36.7 C 67 20 147/67 H 98 03/08/23 07:32 66 24 150/107 H 92 03/08/23 07:11 53 L 03/08/23 04:00 61 26 H 145/64 H 90 03/08/23 03:00 62 26 H 147/61 H 92 03/08/23 03:00 03/08/23 02:02 57 L 24 155/56 H 92 O2 Del Method O2 Flow Rate 03/08/23 11:35 Room Air 03/08/23 10:15 Nasal Cannula 2 03/08/23 09:15 Nasal Cannula 2 03/08/23 07:39 03/08/23 07:39 Nasal Cannula 3 03/08/23 07:32 Room Air 03/08/23 07:11 03/08/23 04:00 03/08/23 03:00 03/08/23 03:00 Room Air 03/08/23 02:02 Laboratory Results Short CBC 03/07/23 03/08/23 Range/Units 17:56 05:21 WBC 4.05 L 4.69 L (4.8-10.8) K/ul Hgb 16.0 14.2 (14.0-18.0) g/dl Hct 47.2 41.2 L (42.0-52.0) % Plt Count 105 L 117 L (130-400) K/uL BMP 03/07/23 03/08/23 17:56 05:21 Sodium 133 L 135 L Potassium 4.3 3.7 Chloride 100 99 Carbon Dioxide 26 28 BUN 14 14 Creatinine 0.70 0.75 Glucose 110 H 114 H Calcium 9.3 8.6 Liver Function 03/07/23 Range/Units 17:56 Total Bilirubin 1.7 H (0.2-1.0) mg/dl AST 33 (13-39) U/L ALT 16 (7-52) U/L Alkaline Phosphatase 112 H (34-104) U/L Albumin 3.9 (3.4-5.0) gm/dl
[2023-03-08] MEDS ORDERED: LORazepam 1 MG in SYRINGE 0.5 ML IV PRN (14:39)
[2023-03-08] MEDS: THIAMINE HCL 100 MG TAB PO SCH (15:50)
--- NOTE | 2023-03-08 16:34 | Electrocardiogram Report ---
Test Reason : Blood Pressure : / mmHG Vent. Rate : 047 BPM Atrial Rate : 047 BPM P-R Int : 000 ms QRS Dur : 084 ms QT Int : 522 ms P-R-T Axes : 068 033 012 degrees QTc Int : 461 ms Poor data quality, interpretation may be adversely affected Sinus rhythm with frequent Premature atrial complexes Poor R wave progression, consider anterior [place] vs. lead placement vs. LVH Abnormal ECG When compared with ECG of 08-MAR-2023 10:12, No significant change Confirmed by Kumar Love ([id number]) on 03/08/2023 4:34:27 PM Referred By: REFERRED SELF Confirmed By:Kumar Love
[2023-03-09 01:49] LABS: A calco-baum cmplx NotReported Not Detected (NotDetected); Bact fragilis Not Reported Not Detected (NotDetected); Blood Culture Id Panel PCR Panel Negative (NotDetected); C auris Not Reported Not Detected (NotDetected); Calbicans Not Reported Not Detected (NotDetected); Candida glabrata Not Reported Not Detected (NotDetected); Candida krusei Not Reported Not Detected (NotDetected); Cneoformans/gatti Not Reported Not Detected (NotDetected); Cparapsilosis Not Reported Not Detected (NotDetected); E cloacae compx Not Reported Not Detected (NotDetected); Efaecalis Not Reported Not Detected (NotDetected); Efaecium Not Reported Not Detected (NotDetected); Enterobacterales Not Reported Not Detected (NotDetected); Escherichia coli Not Reported Not Detected (NotDetected); H influenzae Not Reported Not Detected (NotDetected); K aerogenes Not Reported Not Detected (NotDetected); Koxytoca Not Reported Not Detected (NotDetected); Kpneumoniae grp Not Reported Not Detected (NotDetected); Lmonocyt Not Reported Not Detected (NotDetected); N meningitidis Not Reported Not Detected (NotDetected); P aeruginosa Not Reported Not Detected (NotDetected); Proteus spp Not Reported Not Detected (NotDetected); Salmonella spp Not Reported Not Detected (NotDetected); Smarcescens Not Reported Not Detected (NotDetected); Staph lugdunensis Not Reported Not Detected (NotDetected); Staph spp. Not Reported Not Detected (NotDetected); Staphaureus Not Reported Not Detected (NotDetected); Staphepi Not Reported Not Detected (NotDetected); Stenmaltophilia Not Reported Not Detected (NotDetected); Strep agal(GrpB) Not Reported Not Detected (NotDetected); Strep pneum Not Reported Not Detected (NotDetected); Strep pyog (GrpA) Not Reported Not Detected (NotDetected); Strep spp Not Reported Not Detected (NotDetected)
[2023-03-09] MEDS: DAPTOmycin 550 MG in SYRINGE 0 ML IV SCH (04:17)
[2023-03-09 06:06] LABS: Hematocrit (blood only) 41.3 % (42.0-52.0); Hemoglobin 14.5 g/dl (14.0-18.0); Mean Corpuscular Hemoglobin 33.3 pg (25.0-34.0); Mean Corpuscular Hgb Conc 35.1 g/dL (32.0-36.0); Mean Corpuscular Volume 94.9 fL (80.0-100.0); Mean Platelet Volume 9.8 fL (9.4-12.4); Platelet Count 138 K/uL (130-400); RDW Coefficient of Variation 13.2 % (11.5-14.5); RDW Standard Deviation 45.7 fL (36.4-46.3); Red Blood Count 4.35 M/uL (4.70-6.10); White Blood Count 4.48 K/ul (4.8-10.8)
[2023-03-09 06:23] LABS: BUN Creatinine Ratio 17.9 (10-20); Calcium 8.6 mg/dl (8.6-10.3); Creatinine Clr Calc Pharmacy 94.8 ml/min; Est GFR (African American) 94.1 ml/min; Est GFR (Non-African American) 81.2 ml/min; Magnesium 1.7 mg/dl (1.7-2.4); Potassium 3.4 mmol/L (3.5-5.1)
[2023-03-09] MEDS: SPIRONOLACTONE 25 MG TAB PO SCH ×2 (08:40→17:24)
[2023-03-09] MEDS: FOLIC ACID 1 MG TAB PO SCH (08:40)
[2023-03-09] MEDS: THIAMINE HCL 100 MG TAB PO SCH (08:41)
[2023-03-09] MEDS: cefTRIAXone SODIUM 2,000 MG in DEXTROSE 5 % MINI-B 50 ML IV SCH (08:41)
[2023-03-09] MEDS: BACLOFEN 10 MG TAB PO SCH ×3 (08:48→21:30)
[2023-03-09] MEDS: FUROSEMIDE 40 MG/4 ML VIAL IV SCH ×2 (08:49→17:24)
[2023-03-09] MEDS: INSULIN ASPART PER UNIT CHARGE SC SCH ×4 (09:18→21:22)
[2023-03-09] MEDS ORDERED: POTASSIUM CHLORIDE CRTAB 20 MEQ TABCR PO ONE (09:20)
[2023-03-09] MEDS: LOSARTAN POTASSIUM 25 MG TAB PO SCH (10:14)
[2023-03-09] MEDS: MAGNESIUM OXIDE 400 MG TAB PO SCH (10:14)
--- NOTE | 2023-03-09 10:48 | Cardiology Progress Note ---
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 HS troponin negative x2 BNP minimally elevated Chest xray with small b/l pleural effusions and pulm vascular congestion. Continue furosemide 40 mg IV BID today Continue spironolactone I+O's not accurate. Monitor Daily weight with standing scale Mild hyponatremia noted yesterday, improved. Supplement potassium Supplement magnesium Fluid restriction of 1500 ml Evidence of intermittent possible 2:1 AV block (2nd vs 3rd degree) and Wenckebach noted yesterday with transient bradycardia. This was after initial dose of atenolol. (Atenolol listed as home medication, but patient admitted later he has not been taking "for a long time".) Atenolol discontinued. This morning he is sinus with 2nd degree type I AV block. HR's in the 50's. He is asymptomatic. Avoid AV galdino blocking agents. No indication for pacemaker at this time. He reports he would consider a pacemaker if necessary in the future. Evidence of LE cellulitis - continue antibiotics per hospitalist. 1 out of 2 blood cultures positive on admission. Possible contamination Continue antibiotics. No symptoms to suggest acute sepsis (normal WBC, no fever) Hypertension - -atenolol discontinued -start losartan 25 mg daily -continue diuretics (furosemide and spironolactone) Case discussed with Dr. Negrete I spent a total of 30 minutes on the date of service in preparation, delivery, and documentation of the care provided to this patient, excluding any time spent in the performance of separately billed services. Dara Dobbs PA-C Department of Cardiology, [facility] This chart was completed in part utilizing Speech Voice Recognition Software. Grammatical errors, random word insertions, pronoun errors, and incomplete sentences are an occasional consequence of this system due to software limitations, ambient noise, and hardware issues. Any formal questions or concerns about the content, text, or information contained within the body of this dictation should be directly addressed to the provider for clarification. Admission and Anticipated Discharge Date Admission Date: March 07, 2023 Supervising Physician Co-Signing Physician Notes Attending attestation: I have reviewed the advanced practitioner's documentation and agree with the plan of care. I accept the responsibility for the associated risk of managing the patient. Subjective:Pt resting comfortably. No cardiac complaints Exam: Pulmonary: Lungs clear to auscultation bilaterally Cardiovascular: Bradycardic, no murmurs, 2+ lower extremity edema with excoriations Data: Telemetry: Type I second degree AVB, Wenkebach block in the upper 40s to 50s. Impression/ Plan: Lower extremity edema, perhaps related to diastolic dysfunction, or venous insufficiency: Agree with furosemide and empiric antibiotics Bradycardia: Hold atenolol Patient hemodynamically stable with no symptoms suggestive of symptomatic bradycardia. The patient's first impression is that he would not want to have an invasive procedure performed such as a pacemaker but on further discussion with me he stated that he would like to think about things more. No emergent indication for pacemaker, and prior to consideration of placing a device, would need to treat cellulitis to completion. I spent a total of 20 minutes coordinating, documenting, and providing care for this patient excluding time spent in the performance of separately billed services or time spent by another provider. Asher Negrete, DO Subjective Patient resting in bed comfortably. Feels "fine". Denies dizziness or lightheadedness. No CP or SOB. Edema possibly improving from yesterday. No fever, cough, chills. Review of Systems Review of Systems: All systems reviewed & are unremarkable except as noted in HPI & below Physical Exam Constitutional: WD/WN, vitals as above + morbidly obese Respiratory: no respiratory distress Auscultation: + diminished lung sounds (faint bibasilar rales) Cardiovascular: Rate/Rhythm: regular rate Heart Sounds: no murmur (No audible murmurs) Extremities: + edema (1+ LE edema with b/l erythema with small ulcerations on pretibial region) Gastrointestinal (Abdomen): normal bowel sounds, soft, nontender, no hepatosplenomegaly Neurologic: PERRL, EOMI, accommodation nl, no face palsy, no dysarthria Results & Data Vital Signs (Past 12 Hours) Vital Signs Temp Pulse Pulse Resp BP Pulse Ox O2 Del Method 03/09/23 07:30 44 L 03/09/23 07:22 36.6 C 52 L 19 154/67 H 93 Room Air 03/09/23 02:36 37 C 50 L 18 142/70 H 95 Room Air 03/08/23 22:45 36.6 C 51 L 18 148/67 H 93 Room Air Laboratory Results CBC 03/09/23 Range/Units 05:34 WBC 4.48 L (4.8-10.8) K/ul RBC 4.35 L (4.70-6.10) M/uL Hgb 14.5 (14.0-18.0) g/dl Hct 41.3 L (42.0-52.0) % Plt Count 138 (130-400) K/uL Comprehensive Metabolic Panel 03/09/23 Range/Units 05:34 Sodium 136 (136-145) mmol/L Potassium 3.4 L (3.5-5.1) mmol/L Chloride 98 (98-107) mmol/L Carbon Dioxide 28 (21-32) mmol/L BUN 14 (6-23) mg/dl Creatinine 0.78 (0.6-1.4) mg/dl Glucose 88 (70-99(Fasting)) mg/dl Calcium 8.6 (8.6-10.3) mg/dl Intake and Output 03/08/23 03/09/23 03/09/23 22:59 06:59 14:59 Intake Total 100 / 540 150 / 540 50 / 50 Balance 100 / 140 150 / 140 50 / 50 Intake: IV 50 / 50 cefTRIAXone SODIUM 2,000 mg In 50 / 50 Dextrose 5 % Mini-B 50 ml @ 100 mls/hr IV Q24H [facility] Rx#: [id number] Oral 100 / 490 150 / 490 Other: Weight 141.7 kg Weight Measurement Method Standing Scale Diagnostic Findings Telemetry reviewed: Sinus rhythm with 2nd degree type I AV block. Heart rates around 50-55 bmp. No pauses or evidence of high degree AV block Echo results reviewed from 03/09/23: Mild concentric LVH Normal LV wall motion EF 55-60% Elevated pulm pressure is 41 mmHg Medications Administered Current Inpatient Medications Acetaminophen (Acetaminophen 325 Mg Tab) 650 mg PO Q4H PRN PRN Reason: Pain or Fever Stop: 04/06/23 22:19 Baclofen (Baclofen 10 Mg Tab) 5 mg PO TID [facility] Stop: 04/06/23 22:19 Last Admin: 03/09/23 08:48 Dose: 5 mg Citalopram Hydrobromide (Citalopram 20 Mg Tab) 20 mg PO HS [facility] Stop: 04/06/23 22:19 Last Admin: 03/08/23 19:55 Dose: 20 mg Dextrose (Dextrose 50% 50 Ml Syringe) 25 - 50 ml IV UD PRN; Protocol PRN Reason: Hypoglycemia Protocol Stop: 04/06/23 22:19 Enoxaparin Sodium (Enoxaparin Inj 40 Mg/0.4 Ml Syr) 40 mg SQ HS [facility] Stop: 04/06/23 22:44 Last Admin: 03/08/23 19:55 Dose: 40 mg Folic Acid (Folic Acid 1 Mg Tab) 1 mg PO DAILY [facility] Stop: 04/07/23 08:59 Last Admin: 03/09/23 08:40 Dose: 1 mg Furosemide (Furosemide 40 Mg/4 Ml Vial) 40 mg IV [id number] [facility] Stop: 04/07/23 08:59 Last Admin: 03/09/23 08:49 Dose: 40 mg Glucagon (Glucagon For Inj 1 Mg Vial) 1 mg SQ UD PRN; Protocol PRN Reason: Hypoglycemia Protocol Stop: 04/06/23 22:19 Glucose (Glucose 10 Tab/Tube) 4 - 8 tab PO UD PRN; Protocol PRN Reason: Hypoglycemia Treatment Stop: 04/06/23 22:19 Glucose (Glucose 40% Gel 15 Gm Tube) 15 - 30 gm PO UD PRN; Protocol PRN Reason: Hypoglycemia Protocol Stop: 04/06/23 22:19 Ceftriaxone Sodium 2,000 mg/ (Dextrose) 50 mls @ 100 mls/hr IV Q24H [facility]; Protocol Stop: 03/15/23 08:59 Last Infusion: 03/09/23 09:17 Dose: Infused Lorazepam 1 mg/ Syringe 1 mls @ 2 mls/min IV ONE PRN; Protocol PRN Reason: EtoH Withdrawal AWSS 6-10 Daptomycin 550 mg/ Syringe 11 mls @ 7.2 mls/min IV Q24H [facility]; Protocol Stop: 03/23/23 03:59 Last Admin: 03/09/23 04:17 Dose: 7.2 mls/min Insulin Aspart (Insulin Aspart Per Unit Charge) 0 units SC ACHS [facility] Stop: 04/06/23 22:19 Last Admin: 03/09/23 09:18 Dose: Not Given Losartan Potassium (Losartan Potassium 25 Mg Tab) 25 mg PO QAM [facility] Stop: 04/08/23 09:44 Last Admin: 03/09/23 10:14 Dose: 25 mg Magnesium Oxide (Magnesium Oxide 400 Mg Tab) 400 mg PO QAM [facility] Stop: 04/08/23 09:44 Last Admin: 03/09/23 10:14 Dose: 400 mg Miconazole Nitrate (Miconazole Nitrate Powder 85 Gm) 1 appln EXT PRN PRN PRN Reason: Affected Skin Folds Stop: 04/07/23 12:39 Miscellaneous (Carbohydrates For Hypoglycemia ) 15 - 30 gm PO UD PRN PRN Reason: Hypoglycemia Protocol Stop: 04/06/23 22:19 Nitroglycerin (Nitroglycerin Sl 0.4 Mg/Tab Tab) 0.4 mg SL Q5M PRN PRN Reason: Chest Pain Stop: 04/06/23 22:19 Polyethylene Glycol (Polyethylene (Miralax) 17 Gm Pack) 17 gm PO DAILY PRN PRN Reason: Constipation Stop: 04/06/23 22:19 Spironolactone (Spironolactone 25 Mg Tab) 50 mg PO [id number] [facility] Stop: 04/06/23 22:19 Last Admin: 03/09/23 08:40 Dose: 50 mg Thiamine HCl (Thiamine Hcl 100 Mg Tab) 100 mg PO QAM [facility] Stop: 04/07/23 14:44 Last Admin: 03/09/23 08:41 Dose: 100 mg
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
--- NOTE | 2023-03-09 17:19 | Hospitalist Progress Note ---
Date of Service March 09, 2023 Assessment & Plan (1) Acute CHF: Plan: Patient is an 87 yr male with past medical history significant for hypertension, diabetes, CHF, depression, ambulatory dysfunction comes because of worsening lower extremity edema. Lower extremity edema getting worse lately. Seems to referred by PCP when physical therapy was concerned about his lower extreme edema. Ambulates with a walker. Patient denies any chest pain. Patient denies a Acute diastolic CHF --CXR:Cardiomegaly with interval development of mild interstitial pulmonary edema and small bilateral pleural effusions. --ECHO: Mild concentric LVH. Left ventricle wall motion is normal. EF 55 to 60%. Pulmonary artery systolic pressure is estimated to be 41 mmHg. Doppler assessment for left ventricular diastolic function is indeterminate due to underlying irregular rhythm. -- Continue IV Lasix Also on Aldactone Beta-will held due to bradycardia Monitor volume status, I's and O's Appreciate cardiology input Continue current medications Bradycardia/AV block 5 Beats NSVT asymptomatic Atenolol held due to bradycardia Cardiology on board Emergent indication for pacemaker currently Possible B/L lower extremity cellulitis Blood cultures pending Empirically on Rocephin, daptomycin Abnormal blood cultures Likely contamination 1/4 blood cultures growing gram-positive bacilli Empirically on IV antibiotics as above Hypokalemia Replete electrolytes as needed Monitor Alcohol use disorder Continue thiamine, folic acid Monitor for withdrawal 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 Mood disorder Prior history of suicidal attempt as per record Previously on Zoloft--he abruptly discontinued in January 2022 Consulted psychiatry Adjust medications as per psych DM II HbA1c 5.9 Hold metformin Insulin sliding scale while hospitalized Monitor BGs Hypertension Hold atenolol due to bradycardia Started on losartan 25 mg daily Monitor BP Obesity Sleep study as outpatient BMI 38 Ambulatory dysfunction PT OT when stable Fall precautions DVT Px: Lovenox SQ Code Status DNI/DNR Admission and Anticipated Discharge Date Admission Date: March 07, 2023 Subjective Patient is seen and examined at bedside Offers no complaints today No signs of alcohol withdrawal Denies any chest pain, dyspnea, dizziness Discussed with cardiology and palliative care today Review of Systems Review of Systems: All systems reviewed & are unremarkable except as noted in Subjective Physical Exam Physical Exam: Physical Exam: Vitals signs as noted above General Appearance:Obese, no apparent distress Head: normocephalic, Atraumatic Eyes: normal inspection, EOMI Neck: supple, Trachea midline Respiratory/Chest: Decreased breath sounds, CTA, No accessory muscle use Cardiovascular: S1, S2, No murmur, +Bradycardia Abdomen/GI:Soft, Non tender, Bowel sounds present Extremities/Musculoskeletal:normal inspection, 2+ B/L LE edema, erythema, +Abrasions, scabs Neurologic/Psych:AAOX3, grossly no focal neurological deficits Skin: normal color, warm Results & Data Results & Data Vital Signs (Past 12 Hours) Vital Signs Temp Pulse Pulse Resp BP Pulse Ox O2 Del Method 03/09/23 15:50 48 L 03/09/23 14:49 36.7 C 50 L 19 152/74 H 96 Room Air 03/09/23 11:23 37.1 C 75 19 161/91 H 94 Room Air 03/09/23 07:30 44 L 03/09/23 07:22 36.6 C 52 L 19 154/67 H 93 Room Air Laboratory Results Short CBC 03/09/23 Range/Units 05:34 WBC 4.48 L (4.8-10.8) K/ul Hgb 14.5 (14.0-18.0) g/dl Hct 41.3 L (42.0-52.0) % Plt Count 138 (130-400) K/uL BMP 03/09/23 05:34 Sodium 136 Potassium 3.4 L Chloride 98 Carbon Dioxide 28 BUN 14 Creatinine 0.78 Glucose 88 Calcium 8.6
[2023-03-09] MEDS: CITALOPRAM 20 MG TAB PO SCH (21:23)
[2023-03-09] MEDS: ENOXAPARIN INJ 40 MG/0.4 ML SYR SQ SCH (21:23)
[2023-03-10] MEDS: DAPTOmycin 550 MG in SYRINGE 0 ML IV SCH (05:13)
[2023-03-10 07:47] LABS: Hematocrit (blood only) 40.9 % (42.0-52.0); Hemoglobin 13.8 g/dl (14.0-18.0); Mean Corpuscular Hemoglobin 32.6 pg (25.0-34.0); Mean Corpuscular Hgb Conc 33.7 g/dL (32.0-36.0); Mean Corpuscular Volume 96.7 fL (80.0-100.0); Platelet Count 114 K/uL (130-400); RDW Coefficient of Variation 13.5 % (11.5-14.5); Red Blood Count 4.23 M/uL (4.70-6.10); White Blood Count 4.27 K/ul (4.8-10.8)
[2023-03-10 07:50] LABS: Calcium 8.5 mg/dl (8.6-10.3); Creatinine Clr Calc Pharmacy 102.7 ml/min; Est GFR (African American) 97.2 ml/min; Est GFR (Non-African American) 83.9 ml/min; Potassium 3.6 mmol/L (3.5-5.1)
--- NOTE | 2023-03-10 07:53 | Cardiology Progress Note ---
Date of Service March 10, 2023 Assessment & Plan (1) Acute on chronic diastolic heart failure with preserved ejection fraction: (2) Brandon second degree AV block: (3) Bilateral cellulitis of lower leg: Plan Impression: Patient admitted for worsening LE edema, hypervolemia, consistent with acute on chronic HFpEF secondary to medication non compliance at home. HS troponin negative x2 BNP minimally elevated Chest xray with small b/l pleural effusions and pulm vascular congestion. Plan: Acute on chronic diastolic CHF: Continue furosemide 40 mg IV BID today Continue spironolactone I+O's not accurate. Monitor Daily weight with standing scale CHF education Mild hyponatremia Supplement potassium Supplement magnesium Fluid restriction of 1500 ml Bradycardia: Evidence of intermittent possible 2:1 AV block (2nd vs 3rd degree) and Brandon noted 03/08 with transient bradycardia. This was after initial dose of atenolol. (Atenolol listed as home medication, but patient admitted later he has not been taking "for a long time".) Atenolol discontinued. Telemetry with ongoing sinus with 2nd degree type I AV block. HR's in the 50's. He is asymptomatic. Avoid AV galdino blocking agents. No indication for pacemaker at this time. Patient is unsure if he would consider pacemaker placement in the future if necessary. Hypertension: -Atenolol discontinued -Increase losartan to 50 mg daily -continue diuretics (furosemide and spironolactone) Lower extremity cellulitis: Evidence of LE cellulitis - continue antibiotics per hospitalist. 1 out of 2 blood cultures positive on admission. Possible contamination Continue antibiotics. No symptoms to suggest acute sepsis (normal WBC, no fever) Palliative care on board, appreciate recommendations. Case discussed with Dr. Negrete I spent a total of 30 minutes on the date of service in preparation, delivery, and documentation of the care provided to the patient excluding any time spent in the performance of separately billed services. DOUGLAS Julien Department of Cardiology, [facility] This chart was completed in part utilizing Speech Voice Recognition Software. Grammatical errors, random word insertions, pronoun errors, and incomplete sentences are an occasional consequence of this system due to software limitations, ambient noise, and hardware issues. Any formal questions or concerns about the content, text, or information contained within the body of this dictation should be directly addressed to the provider for clarification. Admission and Anticipated Discharge Date Admission Date: March 07, 2023 Supervising Physician Co-Signing Physician Notes Attending attestation: I have reviewed the advanced practitioner's documentation and agree with the plan of care. I accept the responsibility for the associated risk of managing the patient. Subjective:Pt resting comfortably. No cardiac complaints Exam: Pulmonary: Lungs clear to auscultation bilaterally Cardiovascular: Bradycardic, no murmurs, 2+ lower extremity edema with excoriations Data: Telemetry: Type I second degree AVB, Wenkebach block in the upper 40s to 50s. Impression/ Plan: Lower extremity edema, perhaps related to diastolic dysfunction, or venous insufficiency: Agree with furosemide and empiric antibiotics Bradycardia: Hold atenolol Patient hemodynamically stable with no symptoms suggestive of symptomatic bradycardia. The patient's first impression is that he would not want to have an invasive procedure performed such as a pacemaker but on further discussion with me he stated that he would like to think about things more. No emergent indication for pacemaker, and prior to consideration of placing a device, would need to treat cellulitis to completion. I spent a total of 20 minutes coordinating, documenting, and providing care for this patient excluding time spent in the performance of separately billed services or time spent by another provider. Asher Negrete, DO Subjective 87-year-old male who was admitted to [facility] due to worsening LE edema, hypervolemia, consistent with acute on chronic HFpEF secondary to medication non compliance at home. Chest x-ray revealed small bilateral pleural effusions Patient started on IV Lasix 40 mg twice daily Evidence of intermittent possible 2nd degree AV block, Wenckebach. At times appears to be a 2:1 (possible 3rd degree) AV block while patient is sleeping. Asymptomatic Atenolol discontinued. Due to hypertension losartan 25 mg daily was started. 03/10/2023: Upon entrance into the room patient resting comfortably in bed. Denies any chest pain or shortness of breath. Continues to have lower extremity edema however notes improvement since admission. Denies palpitations. No lightheadedness or dizziness. Completely asymptomatic with his bradycardic heart rates. Patient has conflicting views whether he would like to undergo any type of surgical procedure in the future including a pacemaker. Telemetry: Mobitz type I with rates in the 40s to 50s Labs: CBC stable. Renal function stable. Mild hyponatremia, 134. Potassium low normal at 3.6. Weight: ?141.7 kg unsure of accuracy-- wide variation in chart I&O: +1.5 L -- again, accuracy is questioned Review of Systems Review of Systems: All systems reviewed & are unremarkable except as noted in HPI & below Physical Exam Constitutional: WD/WN, vitals as above + morbidly obese Respiratory: no respiratory distress Auscultation: + diminished lung sounds (faint bibasilar rales) and + crackles (BL bases ); no rhonchi and no wheezes Cardiovascular: Rate/Rhythm: regular rate Heart Sounds: no murmur (No audible murmurs) Extremities: + edema (1+ LE edema with b/l erythema with small ulcerations on pretibial region ) Gastrointestinal (Abdomen): normal bowel sounds, soft, nontender, no hepatosplenomegaly Neurologic: PERRL, EOMI, accommodation nl, no face palsy, no dysarthria Psychiatric: Orientation: alert and oriented x 3 Results & Data Vital Signs (Past 12 Hours) Vital Signs Temp Pulse Resp BP Pulse Ox O2 Del Method 03/10/23 03:25 36.8 C 53 L 157/80 H 93 03/09/23 23:50 36.4 C L 55 L 19 160/65 H 93 Room Air Laboratory Results CBC 03/10/23 Range/Units 07:18 WBC 4.27 L (4.8-10.8) K/ul RBC 4.23 L (4.70-6.10) M/uL Hgb 13.8 L (14.0-18.0) g/dl Hct 40.9 L (42.0-52.0) % Plt Count 114 L (130-400) K/uL Comprehensive Metabolic Panel 03/10/23 Range/Units 07:18 Sodium 134 L (136-145) mmol/L Potassium 3.6 (3.5-5.1) mmol/L Chloride 99 (98-107) mmol/L Carbon Dioxide 29 (21-32) mmol/L BUN 18 (6-23) mg/dl Creatinine 0.72 (0.6-1.4) mg/dl Glucose 108 H (70-99(Fasting)) mg/dl Calcium 8.5 L (8.6-10.3) mg/dl Intake and Output 03/09/23 03/10/23 03/10/23 22:59 06:59 14:59 Intake Total 200 / 1410 400 / 1410 Output Total 0 / 0 0 / 0 Balance 200 / 1410 400 / 1410 Intake: Oral 200 / 1360 400 / 1360 Output: Urine 0 / 0 0 / 0 Other: Weight 141.7 kg 141.7 kg Weight Measurement Method Standing Scale
[2023-03-10] MEDS: THIAMINE HCL 100 MG TAB PO SCH (08:17)
[2023-03-10] MEDS: BACLOFEN 10 MG TAB PO SCH ×3 (08:17→20:08)
[2023-03-10] MEDS: FUROSEMIDE 40 MG/4 ML VIAL IV SCH ×2 (08:17→17:47)
[2023-03-10] MEDS: cefTRIAXone SODIUM 2,000 MG in DEXTROSE 5 % MINI-B 50 ML IV SCH (08:17)
[2023-03-10] MEDS: FOLIC ACID 1 MG TAB PO SCH (08:17)
[2023-03-10] MEDS: INSULIN ASPART PER UNIT CHARGE SC SCH ×4 (08:18→22:07)
[2023-03-10] MEDS: LOSARTAN POTASSIUM 25 MG TAB PO SCH (08:18)
[2023-03-10] MEDS: MAGNESIUM OXIDE 400 MG TAB PO SCH (08:18)
[2023-03-10] MEDS: SPIRONOLACTONE 25 MG TAB PO SCH ×2 (09:00→17:44)
[2023-03-10] MEDS: POTASSIUM CHLORIDE CRTAB 20 MEQ TABCR PO SCH (09:30)
[2023-03-10] MEDS ORDERED: LOSARTAN POTASSIUM 25 MG TAB PO ONE (09:32)
--- NOTE | 2023-03-10 12:51 | Communication Note ---
Date of Service: March 10, 2023 Spoke with patient's daughter, Marci per his request. Pt with h/o depression and self isolation. She feels he has improved significantly in hospital from a physical and mental health standpoint already. May need higher level of care than home at discharge.
--- NOTE | 2023-03-10 16:41 | Hospitalist Progress Note ---
Date of Service March 10, 2023 Assessment & Plan (1) Acute CHF: Plan: Patient is an 87 yr male with past medical history significant for hypertension, diabetes, CHF, depression, ambulatory dysfunction comes because of worsening lower extremity edema. Lower extremity edema getting worse lately. Seems to referred by PCP when physical therapy was concerned about his lower extreme edema. Ambulates with a walker. Patient denies any chest pain. Patient denies a Acute diastolic CHF --CXR:Cardiomegaly with interval development of mild interstitial pulmonary edema and small bilateral pleural effusions. --ECHO: Mild concentric LVH. Left ventricle wall motion is normal. EF 55 to 60%. Pulmonary artery systolic pressure is estimated to be 41 mmHg. Doppler assessment for left ventricular diastolic function is indeterminate due to underlying irregular rhythm. -- Continue IV Lasix 40mg BID Also on Aldactone Beta-will held due to bradycardia Monitor volume status, I's and O's Appreciate cardiology input Saturating well on room air Bradycardia/AV block 5 Beats NSVT asymptomatic Atenolol held due to bradycardia Cardiology on board Emergent indication for pacemaker currently Possible B/L lower extremity cellulitis Blood cultures pending Empirically on Rocephin, daptomycin Abnormal blood cultures Likely contamination 1/4 blood cultures growing gram-positive bacilli Empirically on IV antibiotics as above Hypokalemia Replete electrolytes as needed Monitor Chronic left knee pain Offered further evaluation Patient refused further evaluation Alcohol use disorder Continue thiamine, folic acid Monitor for withdrawal 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 Mood disorder Prior history of suicidal attempt as per record Previously on Zoloft--he abruptly discontinued in January 2022 Consulted psychiatry Adjust medications as per psych DM II HbA1c 5.9 Hold metformin Insulin sliding scale while hospitalized Monitor BGs Hypertension Hold atenolol due to bradycardia Started on losartan 25 mg daily Monitor BP Obesity Sleep study as outpatient BMI 38 Ambulatory dysfunction PT OT when stable Fall precautions DVT Px: Lovenox SQ Code Status DNI/DNR Disposition Case management to help with discharge planning Admission and Anticipated Discharge Date Admission Date: March 07, 2023 Subjective Patient is seen and examined at bedside Reports chronic left knee pain Otherwise no complaints Denies any chest pain, dyspnea, dizziness Saturating well on room air Review of Systems Review of Systems: All systems reviewed & are unremarkable except as noted in Subjective Physical Exam Physical Exam: Physical Exam: Vitals signs as noted above General Appearance:Obese, no apparent distress Head: normocephalic, Atraumatic Eyes: normal inspection, EOMI Neck: supple, Trachea midline Respiratory/Chest: Decreased breath sounds, CTA, No accessory muscle use Cardiovascular: S1, S2, No murmur, +Bradycardia Abdomen/GI:Soft, Non tender, Bowel sounds present Extremities/Musculoskeletal:normal inspection, 2+ B/L LE edema, erythema, +Abrasions, scabs Neurologic/Psych:AAOX3, grossly no focal neurological deficits Skin: normal color, warm Results & Data Results & Data Vital Signs (Past 12 Hours) Vital Signs Temp Pulse Resp BP Pulse Ox O2 Del Method 03/10/23 12:04 36.8 C 51 L 18 134/58 L 95 Room Air 03/10/23 07:50 36.4 C L 49 L 18 165/65 H 91 Room Air Laboratory Results Short CBC 03/10/23 Range/Units 07:18 WBC 4.27 L (4.8-10.8) K/ul Hgb 13.8 L (14.0-18.0) g/dl Hct 40.9 L (42.0-52.0) % Plt Count 114 L (130-400) K/uL BMP 03/10/23 07:18 Sodium 134 L Potassium 3.6 Chloride 99 Carbon Dioxide 29 BUN 18 Creatinine 0.72 Glucose 108 H Calcium 8.5 L
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
[2023-03-10] MEDS: ENOXAPARIN INJ 40 MG/0.4 ML SYR SQ SCH (20:08)
[2023-03-10] MEDS: CITALOPRAM 20 MG TAB PO SCH (20:08)
[2023-03-11] MEDS: DAPTOmycin 550 MG in SYRINGE 0 ML IV SCH (05:40)
[2023-03-11 07:38] LABS: Calcium 8.7 mg/dl (8.6-10.3); Potassium 3.7 mmol/L (3.5-5.1)
[2023-03-11 07:44] LABS: BUN Creatinine Ratio 23.3 (10-20); Creatinine Clr Calc Pharmacy 101.8 ml/min; Est GFR (African American) 96.7 ml/min; Est GFR (Non-African American) 83.4 ml/min
[2023-03-11] MEDS: LOSARTAN POTASSIUM 50 MG TAB PO SCH (10:26)
[2023-03-11] MEDS: MAGNESIUM OXIDE 400 MG TAB PO SCH (10:26)
[2023-03-11] MEDS: cefTRIAXone SODIUM 2,000 MG in DEXTROSE 5 % MINI-B 50 ML IV SCH (10:26)
[2023-03-11] MEDS: FOLIC ACID 1 MG TAB PO SCH (10:26)
[2023-03-11] MEDS: POTASSIUM CHLORIDE CRTAB 20 MEQ TABCR PO SCH (10:26)
[2023-03-11] MEDS: THIAMINE HCL 100 MG TAB PO SCH (10:27)
[2023-03-11] MEDS: SPIRONOLACTONE 25 MG TAB PO SCH ×2 (10:27→17:35)
[2023-03-11] MEDS: INSULIN ASPART PER UNIT CHARGE SC SCH ×4 (10:36→20:32)
[2023-03-11] MEDS: FUROSEMIDE 40 MG/4 ML VIAL IV SCH ×2 (10:37→17:38)
[2023-03-11] MEDS: BACLOFEN 10 MG TAB PO SCH ×3 (10:37→20:57)
--- NOTE | 2023-03-11 11:37 | Electrocardiogram Report ---
Test Reason : Blood Pressure : / mmHG Vent. Rate : 056 BPM Atrial Rate : 075 BPM P-R Int : 000 ms QRS Dur : 100 ms QT Int : 488 ms P-R-T Axes : 036 -35 001 degrees QTc Int : 470 ms Sinus rhythm with 2nd degree A-V block (Mobitz I) Left axis deviation Incomplete right bundle branch block Poor R wave progression, consider anterior WI vs. lead placement vs. LVH Abnormal ECG When compared with ECG of 08-MAR-2023 11:50, Premature atrial complexes are no longer Present Incomplete right bundle branch block is now Present On review, prior tracing shows Mobitz I as well Confirmed by Kumar Love ([id number]) on 03/11/2023 11:36:44 AM Referred By: REFERRED SELF Confirmed By:Kumar Love
--- NOTE | 2023-03-11 12:38 | CT Scan Report ---
LEFT KNEE CT CT DOSE: 437.78 mGy.cm HISTORY: Left Knee Pain H/O Fall TECHNIQUE: Multiaxial CT images of the left knee were performed and reformatted in the sagittal and c oronal plane without the use of contrast. A dose lowering technique was utilized adhering to the minerva nciTaylor. COMPARISON: Left knee radiograph 03/26/2008. FINDINGS: No acute fracture or dislocation within the left knee. Severe cartilage space narrowing wit h [id number] articulation and subchondral cystic change at the medial compartment. There are tricom partmental marginal osteophytes. Mild cartilage space narrowing at the lateral and patellofemoral com partments. There is a small knee effusion. There is a 6.2 x 2.7 x 1.7 cm popliteal cyst. There is ant erolateral subcutaneous edema. No soft tissue hematoma identified. IMPRESSION: 1. No fracture or dislocation within the left knee. 2. Small left knee effusion. 3. Tricompartmental osteoarthritis as described above. 4. Anterolateral subcutaneous edema. ACT 112: Negative or not required by law. Electronically signed by: Barry Zhong M.D. 03/11/2023 12:36 PM
--- NOTE | 2023-03-11 15:22 | Cardiology Progress Note ---
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 HS troponin negative x2 BNP minimally elevated Plan: Acute on chronic diastolic CHF: Continue furosemide 40 mg IV BID today Renal function remains stable Continue spironolactone I+O's continue to remain inaccurate. Monitor Daily weight with standing scale CHF education Received potassium and magnesium supplementation yesterday, remain stable. Fluid restriction of 1500 ml Bradycardia: Evidence of intermittent possible 2:1 AV block (2nd vs 3rd degree) and Wenck ebach noted 03/08 with transient bradycardia. Review of telemetry overnight shows patient Sinus bradycardia with intermittent Wenckebach overnight. Remains asymptomatic. continue to hold any AV galdino blocking agents No indication for pacemaker at this time. Patient is unsure if he would consider pacemaker placement in the future if necessary. Hypertension: -High end of target -Continue Losartan 50mg Daily -continue diuretics (furosemide and spironolactone) Lower extremity cellulitis: Evidence of LE cellulitis - continue antibiotics per hospitalist. 1 out of 2 blood cultures positive on admission. Possible contamination Continue antibiotics. No symptoms to suggest acute sepsis (normal WBC, no fever) Palliative care on board, appreciate recommendations. patient's daughter present in room today and very appreciative of any/all updates. She will be talking with hospitalist, pallative and case management of possible options when appropriate for discharge rehabilitation vs home health Case has been discussed with Dr. Negrete. Further recommendations regarding plan of care as per his assessment. I spent a total of 30 minutes on the date of service in preparation, delivery, documentation of the care provided to the patient excluding any time spent in the performance of separately billed services. DOUGLAS Liang [facility] Cardiology [facility] Admission and Anticipated Discharge Date Admission Date: March 07, 2023 Supervising Physician Co-Signing Physician Notes Attending attestation: I have reviewed the advanced practitioner's documentation and agree with the plan of care. I accept the responsibility for the associated risk of managing the patient. Subjective:Pt resting comfortably. No cardiac complaints Presenting chest x-ray not overwhelmingly impressive for congestive heart failure per my personal interpretation Exam: Pulmonary: Lungs clear to auscultation bilaterally Cardiovascular: Bradycardic, no murmurs, 2+ lower extremity edema with excoriations-edema improving Data: Telemetry: Type I second degree AVB, Wenkebach block in the upper 40s to 50s. Impression/ Plan: Lower extremity edema, perhaps related to diastolic dysfunction, or venous insufficiency: Agree with furosemide and empiric antibiotics Bradycardia: Hold atenolol Patient hemodynamically stable with no symptoms suggestive of symptomatic bradycardia. The patient's first impression is that he would not want to have an invasive procedure performed such as a pacemaker but on further discussion with me he stated that he would like to think about things more. No emergent indication for pacemaker, and prior to consideration of placing a device, would need to treat cellulitis to completion. I spent a total of 20 minutes coordinating, documenting, and providing care for this patient excluding time spent in the performance of separately billed services or time spent by another provider. Asher Negrete, Subjective 03/11/23: Patient seen and examined in follow up today. Denies any cardiac concerns. He was out of bed ambulating with a rolling walker with PT/OT. Denies chest pain, pressure, palpitations, pre-syncope, syncope or shortness of breath Labs, diagnostics, documentation and vital reviewed. Telemetry reviewed show Sinus bradycardia rates 50's, notation of intermittent mobitz I noted overnight, no 3rd degree HB noted. Review of Systems Review of Systems: All systems reviewed & are unremarkable except as noted in HPI & below Physical Exam Constitutional: + obese; no acute distress Neck: normal visual inspection and trachea midline Respiratory: normal respiratory effort, lungs clear to auscultation Cardiovascular: Rate/Rhythm: + bradycardic Heart Sounds: normal S1 and normal S2 Vessels: dorsalis pedis pulses present; no JVD Extremities: + edema (+1 BLE edema ) Skin: + erythema (bilateral lower extremities ) Psychiatric: Orientation: alert and oriented x 3 Affect: + flat affect and + tearful affect Results & Data Vital Signs (Past 12 Hours) Vital Signs Temp Pulse Pulse Resp BP BP Pulse Ox 03/11/23 12:32 36.8 C 59 L 18 153/81 H 93 03/11/23 08:13 53 L 03/11/23 08:05 36.5 C 52 L 18 173/85 H 93 03/11/23 08:00 03/11/23 03:30 36.5 C 53 L 18 158/70 H 95 O2 Del Method 03/11/23 12:32 Room Air 03/11/23 08:13 03/11/23 08:05 Room Air 03/11/23 08:00 Room Air 03/11/23 03:30 Room Air Laboratory Results Comprehensive Metabolic Panel 03/11/23 Range/Units 06:39 Sodium 137 (136-145) mmol/L Potassium 3.7 (3.5-5.1) mmol/L Chloride 98 (98-107) mmol/L Carbon Dioxide 33 H (21-32) mmol/L BUN 17 (6-23) mg/dl Creatinine 0.73 (0.6-1.4) mg/dl Glucose 97 (70-99(Fasting)) mg/dl Calcium 8.7 (8.6-10.3) mg/dl Intake and Output 03/11/23 03/11/23 03/11/23 06:59 14:59 22:59 Intake Total 50 / 530 480 / 530 Balance 50 / 530 480 / 530 Intake: IV 50 / 50 cefTRIAXone SODIUM 2,000 mg In 50 / 50 Dextrose 5 % Mini-B 50 ml @ 100 mls/hr IV Q24H [facility] Rx#: [id number] Oral 480 / 480 Other: # Unmeasured Voids 1 Weight 143 kg Weight Measurement Method Built in [facility]
--- NOTE | 2023-03-11 18:11 | Hospitalist Progress Note ---
Date of Service March 11, 2023 Assessment & Plan (1) Acute CHF: Plan: Patient is an 87 yr male with past medical history significant for hypertension, diabetes, CHF, depression, ambulatory dysfunction comes because of worsening lower extremity edema. Lower extremity edema getting worse lately. Seems to referred by PCP when physical therapy was concerned about his lower extreme edema. Ambulates with a walker. Patient denies any chest pain. Patient denies a Acute diastolic CHF --CXR:Cardiomegaly with interval development of mild interstitial pulmonary edema and small bilateral pleural effusions. --ECHO: Mild concentric LVH. Left ventricle wall motion is normal. EF 55 to 60%. Pulmonary artery systolic pressure is estimated to be 41 mmHg. Doppler assessment for left ventricular diastolic function is indeterminate due to underlying irregular rhythm. -- Continue IV Lasix 40mg BID Also on Aldactone Beta-will held due to bradycardia Monitor volume status, I's and O's Appreciate cardiology input Saturating well on room air Repeat chest x-ray tomorrow Bradycardia/AV block 5 Beats NSVT asymptomatic Atenolol held due to bradycardia Cardiology on board Emergent indication for pacemaker currently Possible B/L lower extremity cellulitis Blood cultures pending Empirically on Rocephin, daptomycin Transition to p.o. antibiotics likely tomorrow Abnormal blood cultures Likely contamination 1/4 blood cultures grew Abiotrophia/Granulicatella Sp. Empirically on IV antibiotics as above Repeat blood cultures ordered Hypokalemia Replete electrolytes as needed Monitor Chronic left knee pain Popliteal cyst --CT Knee: No fracture or dislocation within the left knee. Small left knee effusion. Tricompartmental osteoarthritis as described above. Anterolateral subcutaneous edema. 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 to quit drinking Mood disorder Prior history of suicidal attempt as per record Previously on Zoloft--he abruptly discontinued in January 2022 Appreciate psychiatry input Continue citalopram as per psychiatry DM II HbA1c 5.9 Hold metformin Insulin sliding scale while hospitalized Monitor BGs Hypertension Hold atenolol due to bradycardia Started on losartan 25 mg daily Monitor BP Obesity Sleep study as outpatient BMI 38 Ambulatory dysfunction PT OT when stable Fall precautions DVT Px: Lovenox SQ Code Status DNI/DNR Disposition Case management to help with discharge planning Admission and Anticipated Discharge Date Admission Date: March 07, 2023 Subjective Patient is seen and examined at bedside Reports left knee pain Discussed with patient's daughter at bedside Patient offers no other complaints Leg erythema much improved Denies any chest pain, dyspnea, dizziness Review of Systems Review of Systems: All systems reviewed & are unremarkable except as noted in Subjective Physical Exam Physical Exam: Physical Exam: Vitals signs as noted above General Appearance:Obese, no apparent distress Head: normocephalic, Atraumatic Eyes: normal inspection, EOMI Neck: supple, Trachea midline Respiratory/Chest: Decreased breath sounds, CTA, No accessory muscle use Cardiovascular: S1, S2, No murmur, +Bradycardia Abdomen/GI:Soft, Non tender, Bowel sounds present Extremities/Musculoskeletal:normal inspection, 2+ B/L LE edema, erythema improved, +Abrasions, scabs Neurologic/Psych:AAOX3, grossly no focal neurological deficits Skin: normal color, warm Results & Data Results & Data Vital Signs (Past 12 Hours) Vital Signs Temp Pulse Pulse Resp BP BP Pulse Ox 03/11/23 15:27 36.6 C 49 L 18 140/80 97 03/11/23 12:32 36.8 C 59 L 18 153/81 H 93 03/11/23 08:13 53 L 03/11/23 08:05 36.5 C 52 L 18 173/85 H 93 03/11/23 08:00 O2 Del Method 03/11/23 15:27 Room Air 03/11/23 12:32 Room Air 03/11/23 08:13 03/11/23 08:05 Room Air 03/11/23 08:00 Room Air Laboratory Results BMP 03/11/23 06:39 Sodium 137 Potassium 3.7 Chloride 98 Carbon Dioxide 33 H BUN 17 Creatinine 0.73 Glucose 97 Calcium 8.7
--- NOTE | 2023-03-11 18:24 | XRay Report ---
XR knee LT 3V CLINICAL HISTORY: left knee pain COMPARISON STUDY: Left knee CT 03/11/2023. FINDINGS: No acute fracture or dislocation within the left knee. There is a small left knee effusion again noted and anterior soft tissue swelling. Tricompartmental osteoarthritis most pronounced within the medial compartment of the knee. IMPRESSION: 1. No acute fracture or dislocation within the left knee. 2. Small knee effusion and anterior soft tissue swelling. 3. Tricompartmental osteoarthritis. ACT 112: Negative or not required by law. Electronically signed by: Barry Zhong M.D. 03/11/2023 6:23 PM
[2023-03-11] MEDS ORDERED: FUROSEMIDE 40 MG/4 ML VIAL IV STA (19:59)
[2023-03-11] MEDS: ENOXAPARIN INJ 40 MG/0.4 ML SYR SQ SCH (20:57)
[2023-03-11] MEDS: CITALOPRAM 20 MG TAB PO SCH (20:57)
--- NOTE | 2023-03-12 06:25 | Orthopedic Consultation ---
<Statement entered by Gerald Gee, - 03/12/23 13:36> Agree with below. Patient has severe osteoarthritis. Would recommend conservative treatment with therapy and pain control. He may follow-up as an outpatient. May consider injection at that time. Orthopedics will sign off. Date of Consultation March 12, 2023 Assessment & Plan (1) Osteoarthritis of left knee: 87-year-old male consulted on in regards to left knee pain, reviewed his left knee x-rays as well as CT scan which shows advanced degenerative changes to his left knee. He is currently admitted for CHF as well as lower extremity cellulitis, currently being treated with Rocephin, daptomycin. In regards to his left knee, exam is consistent with left knee osteoarthritis. He states today the pain in his knee is much better, therefore would continue to observe. Patient could take Tylenol 1000 mg every 8 hours as needed as well as diclofenac 75 mg by mouth twice a day if okay with primary team. We also discussed injections including corticosteroid injection versus viscosupplementation. Iqra ent is diabetic, therefore would hold on cortisone injection at this time and therefore would recommend viscosupplementation, this would need to be ordered through his insurance and can be given as an outpatient. Would recommend physical therapy for his left knee pain and ambulatory dysfunction, continue to ambulate with a walker. He can follow-up in the office once discharged if still having any pain History of Present Illness Reason for Consultation: Left knee pain Attending Physician: Jesús Cabello MD History of Present Illness Mr Dozier is a pleasant 87-year-old male who we are consulted in regards to left knee pain. He denies any recent injuries or trauma but states he injured it 40 to 50 years ago while using a kettle [place] at the [facility]. But denies anything recent. He states the pain began a few days ago, he denies catching locking or any instability, does state he has intermittent swelling.. He does ambulate with a walker, denies any recent anti-inflammatory or Tylenol use. Denies any recent injections or treatment for his left knee pain. Allergies Allergy/AdvReac Type Severity Reaction Status Date / Time No Known Allergies Allergy Unverified 03/07/23 21:07 Home Medications Medication Instructions Recorded Confirmed Type atenolol 25 mg tablet 25 mg PO QAM 09/07/20 03/07/23 History furosemide 40 mg tablet 40 mg PO BID 09/07/20 03/07/23 History baclofen 10 mg tablet 5 mg PO TID 03/07/23 03/07/23 History citalopram 20 mg tablet 20 mg PO HS 03/07/23 03/07/23 History folic acid 1 mg tablet 1 mg PO QAM 03/07/23 03/07/23 History metformin 500 mg tablet 500 mg PO QAM 03/07/23 03/07/23 History naproxen sodium 220 mg tablet 220 mg PO QAM 03/07/23 03/07/23 History spironolactone 25 mg tablet 50 mg PO BID 03/07/23 03/07/23 History Patient History Medical History Hypertension CHF (congestive heart failure) Social History Smoking Status: Never smoker Hx Alcohol Use: Yes Alcohol type: beer Hx Substance Use: No Preferred Language: Czech Communication Ability: Effective White [employer] Hacker Required: No Beliefs That Will Affect Care: None Current Living Situation: Alone Feels Safe at Home: Yes Assistive Devices: Walker Physical Exam Physical Exam: Vital Signs Temp 36.7 C 03/12/23 04:12 Pulse 50 L 03/12/23 04:12 Resp 18 03/12/23 04:12 BP 127/50 L 03/12/23 04:12 Pulse Ox 92 03/12/23 04:12 O2 Del Method Room Air 03/12/23 04:12 O2 Flow Rate 2 03/08/23 10:15 Intake & Output 03/11/23 03/11/23 03/12/23 06:59 18:59 06:59 Intake Total 50 / 640 530 / 1080 550 / 1080 Balance 50 / 190 530 / 1080 550 / 1080 Weight 143 kg Intake: IV 50 / 50 50 / 50 cefTRIAXone SO DIUM 2,000 mg In 50 / 50 50 / 50 Dextrose 5 % M ini-B 50 ml @ 100 mls/hr IV Q24H [facility] Rx#: [id number] Oral 480 / 1030 550 / 1030 Other: # Unmeasured Voi ds 1 3 Weight Measureme nt Method Built in [facility] Musculoskeletal: Knee: + effusion (+1 effusion), + limited ROM of knee (0/3/100), + knee ROM with crepitation, + joint line tenderness (+ medial joint line pain) and + Bogdan's sign positive; no deformity, no skin erythema, no ecchymosis, no valgus laxity, no varus laxity, posterior drawer test negative and Kallie's sign negative Ankle: + ankle abnormal to inspection (+2 lower extremity edema) Results & Data Vital Signs (Past 12 Hours) Vital Signs Temp Pulse Pulse Resp BP Pulse Ox O2 Del Method 03/12/23 04:12 36.7 C 50 L 18 127/50 L 92 Room Air 03/11/23 23:00 47 L 03/11/23 22:40 36.5 C 50 L 18 159/73 H 95 Room Air 03/11/23 20:00 Room Air 03/11/23 19:46 36.8 C 54 L 18 150/60 H 97 Room Air Diagnostic Findings LEFT KNEE CT CT DOSE: 437.78 mGy.cm HISTORY: Left Knee Pain H/O Fall TECHNIQUE: Multiaxial CT images of the left knee were performed and reformatted in the sagittal and coronal plane without the use of contrast. A dose lowering technique was utilized adhering to the principles of ALARA. COMPARISON: Left knee radiograph 03/26/2008. FINDINGS: No acute fracture or dislocation within the left knee. Severe cartilage space narrowing with [id number] articulation and subchondral cystic change at the medial compartment. There are tricompartmental marginal ost eophytes. Mild cartilage space narrowing at the lateral and patellofemoral compartments. There is a small knee effusion. There is a 6.2 x 2.7 x 1.7 cm popliteal cyst. There is anterolateral subcutaneous edema. No soft tissue hematoma identified. IMPRESSION: 1. No fracture or dislocation within the left knee. 2. Small left knee effusion. 3. Tricompartmental osteoarthritis as described above. 4. Anterolateral subcutaneous edema. ACT 112: Negative or not required by law. Electronically signed by: Barry Zhong M.D. 03/11/2023 12:36 PM Dictated: 03/11/23 1233 Transcribed: 03/11/23 1233 XR knee LT 3V CLINICAL HISTORY: left knee pain COMPARISON STUDY: Left knee CT 03/11/2023. FINDINGS: No acute fracture or dislocation within the left knee. There is a small left knee effusion again noted and anterior soft tissue swelling. Tricompartmental osteoarthritis most pronounced within the medial compartment of the knee. IMPRESSION: 1. No acute fracture or dislocation within the left knee. 2. Small knee effusion and anterior soft tissue swelling. 3. Tricompartmental osteoarthritis. ACT 112: Negative or not required by law. Electronically signed by: Barry Zhong M.D. 03/11/2023 6:23 PM Dictated: 03/11/231818 Transcribed: 03/11/231818
[2023-03-12] MEDS: DAPTOmycin 550 MG in SYRINGE 0 ML IV SCH (06:45)
[2023-03-12 07:08] LABS: Hematocrit (blood only) 42.9 % (42.0-52.0); Hemoglobin 15.3 g/dl (14.0-18.0); Mean Corpuscular Hemoglobin 33.4 pg (25.0-34.0); Mean Corpuscular Hgb Conc 35.7 g/dL (32.0-36.0); Mean Corpuscular Volume 93.7 fL (80.0-100.0); Mean Platelet Volume 9.8 fL (9.4-12.4); Platelet Count 143 K/uL (130-400); RDW Coefficient of Variation 13.1 % (11.5-14.5); RDW Standard Deviation 45.1 fL (36.4-46.3); Red Blood Count 4.58 M/uL (4.70-6.10); White Blood Count 4.42 K/ul (4.8-10.8)
[2023-03-12 07:15] LABS: BUN Creatinine Ratio 22.9 (10-20); Calcium 9.1 mg/dl (8.6-10.3); Creatinine Clr Calc Pharmacy 88.8 ml/min; Est GFR (African American) 91.7 ml/min; Est GFR (Non-African American) 79.1 ml/min; Potassium 3.8 mmol/L (3.5-5.1)
[2023-03-12] MEDS: INSULIN ASPART PER UNIT CHARGE SC SCH ×4 (09:53→20:00)
[2023-03-12] MEDS: cefTRIAXone SODIUM 2,000 MG in DEXTROSE 5 % MINI-B 50 ML IV SCH (09:55)
[2023-03-12] MEDS: FOLIC ACID 1 MG TAB PO SCH (09:55)
[2023-03-12] MEDS: MAGNESIUM OXIDE 400 MG TAB PO SCH (09:57)
[2023-03-12] MEDS: POTASSIUM CHLORIDE CRTAB 20 MEQ TABCR PO SCH (09:57)
[2023-03-12] MEDS: SPIRONOLACTONE 25 MG TAB PO SCH ×2 (09:58→17:06)
[2023-03-12] MEDS: THIAMINE HCL 100 MG TAB PO SCH (09:58)
[2023-03-12] MEDS: LOSARTAN POTASSIUM 50 MG TAB PO SCH (10:00)
[2023-03-12] MEDS: FUROSEMIDE 40 MG/4 ML VIAL IV SCH ×2 (10:14→17:06)
[2023-03-12] MEDS: BACLOFEN 10 MG TAB PO SCH ×3 (10:33→21:20)
--- NOTE | 2023-03-12 11:55 | Cardiology Progress Note ---
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 Telemetry feeling second-degree AV block Mobitz type I without associated symptoms. Continue IV furosemide 40 mg twice daily in addition to spironolactone. Supplement electrolytes as needed. Follow fluid balance, daily weight, GFR, and electrolytes. Patient remains in second-degree AV block Mobitz type I on telemetry. No recurrent high degree AV block over the past 24 hours. Continue to hold AV galdino blocking agents. No overt indication for pacemaker currently. Patient unsure whether he would agree to pacemaker in the future. All infectious issues must be resolved prior to consideration for device implantation. Admission and Anticipated Discharge Date Admission Date: March 07, 2023 Subjective Patient seen and examined at the bedside. Denies chest pain, shortness of breath, lightheadedness, or dizziness. Telemetry reveals sinus rhythm with second-degree AV block Mobitz type I. Heart rate averaging 50 bpm. No high degree AV block overnight. Positive fluid balance recorded. Review of Systems Review of Systems: All systems reviewed & are unremarkable except as noted in Subjective Physical Exam Constitutional: + morbidly obese; no acute distress Respiratory: normal respiratory effort; no respiratory distress Auscultation: + diminished lung sounds (Bases); no crackles, no rhonchi and no wheezes Cardiovascular: Rate/Rhythm: + abnormal rhythm Heart Sounds: normal S1 and normal S2; no murmur Vessels: no JVD Extremities: + edema (2+ bilateral lower extremity edema with erythema, and) Gastrointestinal (Abdomen): Inspection/Auscultation: normal bowel sounds; abdomen not distended Percussion/Palpation: abdomen soft; abdomen nontender and no guarding Neurologic: CN's II-XI intact bilaterally and moves all extremities; no focal motor deficits Results & Data Vital Signs (Past 12 Hours) Vital Signs Temp Pulse Resp BP BP Pulse Ox O2 Del Method 03/12/23 11:01 36.6 C 54 L 18 148/82 H 93 Room Air 03/12/23 07:23 36.4 C L 47 L 18 145/78 H 96 Room Air 03/12/23 04:12 36.7 C 50 L 18 127/50 L 92 Room Air Laboratory Results CBC 03/12/23 Range/Units 06:27 WBC 4.42 L (4.8-10.8) K/ul RBC 4.58 L (4.70-6.10) M/uL Hgb 15.3 (14.0-18.0) g/dl Hct 42.9 (42.0-52.0) % Plt Count 143 (130-400) K/uL Comprehensive Metabolic Panel 03/12/23 Range/Units 06:27 Sodium 136 (136-145) mmol/L Potassium 3.8 (3.5-5.1) mmol/L Chloride 96 L (98-107) mmol/L Carbon Dioxide 31 (21-32) mmol/L BUN 19 (6-23) mg/dl Creatinine 0.83 (0.6-1.4) mg/dl Glucose 103 H (70-99(Fasting)) mg/dl Calcium 9.1 (8.6-10.3) mg/dl Intake and Output 03/11/23 03/12/23 03/12/23 22:59 06:59 14:59 Intake Total 1030 / 1080 Output Total Balance 1027 / 1077 Intake: Oral 1030 / 1030 Output: # Bowel Movements Other: # Unmeasured Voids 1 Weight 140.9 kg Weight Measurement Method Built in [facility]
--- NOTE | 2023-03-12 17:36 | Hospitalist Progress Note ---
Date of Service March 12, 2023 Assessment & Plan (1) Acute CHF: Plan: Patient is an 87 yr male with past medical history significant for hypertension, diabetes, CHF, depression, ambulatory dysfunction comes because of worsening lower extremity edema. Lower extremity edema getting worse lately. Seems to referred by PCP when physical therapy was concerned about his lower extreme edema. Ambulates with a walker. Patient denies any chest pain. Patient denies a Acute diastolic CHF --CXR:Cardiomegaly with interval development of mild interstitial pulmonary edema and small bilateral pleural effusions. --ECHO: Mild concentric LVH. Left ventricle wall motion is normal. EF 55 to 60%. Pulmonary artery systolic pressure is estimated to be 41 mmHg. Doppler assessment for left ventricular diastolic function is indeterminate due to underlying irregular rhythm. -- Continue IV Lasix 40mg BID Also on Aldactone Beta-will held due to bradycardia Monitor volume status, I's and O's Appreciate cardiology input Saturating well on room air Continue current management Bradycardia/AV block 5 Beats NSVT asymptomatic Atenolol held due to bradycardia Cardiology on board Emergent indication for pacemaker currently Possible B/L lower extremity cellulitis Empirically on Rocephin, daptomycin Daptomycin discontinued on 03/12/2023 Transition to p.o. antibiotics as able if blood cultures remain negative Abnormal blood cultures Likely contamination 03/03 blood cultures grew Abiotrophia/Granulicatella Sp. Empirically on IV antibiotics as above Repeat blood cultures pending Hypokalemia Replete electrolytes as needed Monitor Chronic left knee pain likely osteoarthritis Popliteal cyst --CT Knee: No fracture or dislocation within the left knee. Small left knee effusion. Tricompartmental osteoarthritis as described above. Anterolateral subcutaneous edema. 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 Mood disorder Prior history of suicidal attempt as per record Previously on Zoloft--he abruptly discontinued in January 2022 Appreciate psychiatry input Continue citalopram as per psychiatry DM II HbA1c 5.9 Hold metformin Insulin sliding scale while hospitalized Monitor BGs Hypertension Hold atenolol due to bradycardia Started on losartan 25 mg daily Monitor BP Obesity Sleep study as outpatient BMI 38 Ambulatory dysfunction PT OT when stable Fall precautions DVT Px: Lovenox SQ Code Status DNI/DNR Disposition Case management to help with discharge planning Admission and Anticipated Discharge Date Admission Date: March 07, 2023 Subjective Patient is seen and examined at bedside Reports poor sleep overnight Left knee pain is controlled Denies any chest pain, dyspnea, dizziness, nausea, vomiting, abdominal pain Saturating well on room air Review of Systems Review of Systems: All systems reviewed & are unremarkable except as noted in Subjective Physical Exam Physical Exam: Physical Exam: Vitals signs as noted above General Appearance:Obese, no apparent distress Head: normocephalic, Atraumatic Eyes: normal inspection, EOMI Neck: supple, Trachea midline Respiratory/Chest: Decreased breath sounds, CTA, No accessory muscle use Cardiovascular: S1, S2, No murmur, +Bradycardia Abdomen/GI:Soft, Non tender, Bowel sounds present Extremities/Musculoskeletal:normal inspection, 2+ B/L LE edema, erythema improved, +Abrasions, scabs Neurologic/Psych:AAOX3, grossly no focal neurological deficits Skin: normal color, warm Results & Data Results & Data Vital Signs (Past 12 Hours) Vital Signs Temp Pulse Resp BP BP Pulse Ox O2 Del Method 03/12/23 15:15 36.7 C 60 18 144/79 H 95 Room Air 03/12/23 11:01 36.6 C 54 L 18 148/82 H 93 Room Air 03/12/23 07:23 36.4 C L 47 L 18 145/78 H 96 Room Air Laboratory Results Short CBC 03/12/23 Range/Units 06:27 WBC 4.42 L (4.8-10.8) K/ul Hgb 15.3 (14.0-18.0) g/dl Hct 42.9 (42.0-52.0) % Plt Count 143 (130-400) K/uL BMP 03/12/23 06:27 Sodium 136 Potassium 3.8 Chloride 96 L Carbon Dioxide 31 BUN 19 Creatinine 0.83 Glucose 103 H Calcium 9.1
[2023-03-12] MEDS: ENOXAPARIN INJ 40 MG/0.4 ML SYR SQ SCH (21:20)
[2023-03-12] MEDS: CITALOPRAM 20 MG TAB PO SCH (21:20)
[2023-03-13 06:39] LABS: Calcium 9.3 mg/dl (8.6-10.3); Creatinine Clr Calc Pharmacy 82.7 ml/min; Est GFR (African American) 89.1 ml/min; Est GFR (Non-African American) 76.9 ml/min; Magnesium 1.9 mg/dl (1.7-2.4); Potassium 3.7 mmol/L (3.5-5.1)
[2023-03-13] MEDS: INSULIN ASPART PER UNIT CHARGE SC SCH ×5 (09:48→21:17)
[2023-03-13] MEDS: CEFDINIR 300 MG CAP PO SCH ×2 (09:55→20:53)
[2023-03-13] MEDS: POTASSIUM CHLORIDE CRTAB 20 MEQ TABCR PO SCH (09:55)
[2023-03-13] MEDS: SPIRONOLACTONE 25 MG TAB PO SCH ×2 (09:56→17:44)
[2023-03-13] MEDS: LOSARTAN POTASSIUM 50 MG TAB PO SCH (09:56)
[2023-03-13] MEDS: FOLIC ACID 1 MG TAB PO SCH (09:57)
[2023-03-13] MEDS: MAGNESIUM OXIDE 400 MG TAB PO SCH (09:57)
[2023-03-13] MEDS: THIAMINE HCL 100 MG TAB PO SCH (09:58)
[2023-03-13] MEDS: BACLOFEN 10 MG TAB PO SCH ×3 (10:00→20:53)
[2023-03-13] MEDS: FUROSEMIDE 40 MG/4 ML VIAL IV SCH ×2 (10:00→17:47)
--- NOTE | 2023-03-13 15:44 | Hospitalist Progress Note ---
Date of Service March 13, 2023 Assessment & Plan (1) Acute CHF: Plan: Patient is an 87 yr male with past medical history significant for hypertension, diabetes, CHF, depression, ambulatory dysfunction comes because of worsening lower extremity edema. Lower extremity edema getting worse lately. Seems to referred by PCP when physical therapy was concerned about his lower extreme edema. Ambulates with a walker. Patient denies any chest pain. Patient denies a Acute diastolic CHF --CXR:Cardiomegaly with interval development of mild interstitial pulmonary edema and small bilateral pleural effusions. --ECHO: Mild concentric LVH. Left ventricle wall motion is normal. EF 55 to 60%. Pulmonary artery systolic pressure is estimated to be 41 mmHg. Doppler assessment for left ventricular diastolic function is indeterminate due to underlying irregular rhythm. -- Continue IV Lasix 40mg BID Also on Aldactone Beta-will held due to bradycardia Monitor volume status, I's and O's Appreciate cardiology input Saturating well on room air Needs follow-up with cardiology on discharge Bradycardia/AV block 5 Beats NSVT asymptomatic Atenolol held due to bradycardia Cardiology on board Emergent indication for pacemaker currently Possible B/L lower extremity cellulitis Empirically on Rocephin, daptomycin>> transition to Omnicef Clinically improved Abnormal blood cultures Likely contamination 1/4 blood cultures grew Abiotrophia/Granulicatella Sp. Repeat blood cultures: No growth to date Hypokalemia Replete electrolytes as needed Monitor Chronic left knee pain likely osteoarthritis Popliteal cyst --CT Knee: No fracture or dislocation within the left knee. Small left knee effusion. Tricompartmental osteoarthritis as described above. Anterolateral subcutaneous edema. 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 Mood disorder Prior history of suicidal attempt as per record Previously on Zoloft--he abruptly discontinued in January 2022 Appreciate psychiatry input Continue citalopram as per psychiatry DM II HbA1c 5.9 Hold metformin Insulin sliding scale while hospitalized Monitor BGs Hypertension Hold atenolol due to bradycardia Started on losartan 50 mg daily Monitor BP Obesity Sleep study as outpatient BMI 38 Ambulatory dysfunction PT OT when stable Fall precautions DVT Px: Lovenox SQ Code Status DNI/DNR Disposition Case management to help with discharge planning Admission and Anticipated Discharge Date Admission Date: March 07, 2023 Subjective Patient is seen and examined at bedside No new complaints Left knee pain is controlled Poor sleep Denies any chest pain, dyspnea, dizziness, nausea, vomiting, abdominal pain Review of Systems Review of Systems: All systems reviewed & are unremarkable except as noted in Subjective Physical Exam Physical Exam: Physical Exam: Vitals signs as noted above General Appearance:Obese, no apparent distress Head: normocephalic, Atraumatic Eyes: normal inspection, EOMI Neck: supple, Trachea midline Respiratory/Chest: Decreased breath sounds, CTA, No accessory muscle use Cardiovascular: S1, S2, No murmur, +Bradycardia Abdomen/GI:Soft, Non tender, Bowel sounds present Extremities/Musculoskeletal:normal inspection, 2+ B/L LE edema, erythema improved, +Abrasions, scabs Neurologic/Psych:AAOX3, grossly no focal neurological deficits Skin: normal color, warm Results & Data Results & Data Vital Signs (Past 12 Hours) Vital Signs Temp Pulse Resp BP Pulse Ox O2 Del Method 03/13/23 15:27 36.7 C 56 L 18 145/69 H 95 Room Air 03/13/23 11:35 36.4 C L 58 L 18 184/78 H 92 Room Air 03/13/23 07:39 36.4 C L 51 L 18 156/67 H 93 Room Air 03/13/23 07:30 Room Air Laboratory Results BMP 03/13/23 05:27 Sodium 134 L Potassium 3.7 Chloride 97 L Carbon Dioxide 30 BUN 24 H Creatinine 0.89 Glucose 107 H Calcium 9.3
--- NOTE | 2023-03-13 16:43 | Cardiology Progress Note ---
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 Telemetry feeling second-degree AV block Mobitz type I without associated symptoms. Continue IV furosemide 40 mg twice daily in addition to spironolactone. Supplement electrolytes as needed. Follow fluid balance, daily weight, GFR, and electrolytes. Patient remains in second-degree AV block Mobitz type I on telemetry. No recurrent high degree AV block over the past 48 hours. Continue to hold AV galdino blocking agents. No overt indication for pacemaker currently. Patient unsure whether he would agree to pacemaker in the future. All infectious issues must be resolved prior to consideration for device implantation. Admission and Anticipated Discharge Date Admission Date: March 07, 2023 Subjective 87-year-old patient seen and examined at the bedside. Edema improving. Weight loss noted through built-in bed scale, however, fluid balance minimally negative since admission. Patient reports significant diuresis with IV furosemide. Telemetry continues to demonstrate second-degree AV block Mobitz type I. Denies chest pain or shortness of breath at rest. No palpitations, lightheadedness, or dizziness. Review of Systems Review of Systems: All systems reviewed & are unremarkable except as noted in Subjective Physical Exam Constitutional: + morbidly obese; no acute distress Respiratory: normal respiratory effort; no respiratory distress Auscultation: + diminished lung sounds (Bases); no crackles, no rhonchi and no wheezes Cardiovascular: Rate/Rhythm: + abnormal rhythm Heart Sounds: normal S1 and normal S2; no murmur Vessels: no JVD Extremities: + edema (2+ bilateral lower extremity edema with erythema, stasis changes) Gastrointestinal (Abdomen): Inspection/Auscultation: normal bowel sounds; abdomen not distended Percussion/Palpation: abdomen soft; abdomen nontender and no guarding Neurologic: CN's II-XI intact bilaterally and moves all extremities; no focal motor deficits Results & Data Vital Signs (Past 12 Hours) Vital Signs Temp Pulse Resp BP Pulse Ox O2 Del Method 03/13/23 15:27 36.7 C 56 L 18 145/69 H 95 Room Air 03/13/23 11:35 36.4 C L 58 L 18 184/78 H 92 Room Air 03/13/23 07:39 36.4 C L 51 L 18 156/67 H 93 Room Air 03/13/23 07:30 Room Air Laboratory Results Comprehensive Metabolic Panel 03/13/23 Range/Units 05:27 Sodium 134 L (136-145) mmol/L Potassium 3.7 (3.5-5.1) mmol/L Chloride 97 L (98-107) mmol/L Carbon Dioxide 30 (21-32) mmol/L BUN 24 H (6-23) mg/dl Creatinine 0.89 (0.6-1.4) mg/dl Glucose 107 H (70-99(Fasting)) mg/dl Calcium 9.3 (8.6-10.3) mg/dl Intake and Output 03/13/23 03/13/23 03/13/23 06:59 14:59 22:59 Intake Total 250 / 375 125 / 375 Output Total 450 / 450 Balance 250 / -75 -325 / -75 Intake: Oral 250 / 375 125 / 375 Output: Urine 450 / 450 Other: # Unmeasured Voids 0 2 Weight 140.5 kg Weight Measurement Method Built in [facility]
[2023-03-13] MEDS: ENOXAPARIN INJ 40 MG/0.4 ML SYR SQ SCH (20:53)
[2023-03-13] MEDS: CITALOPRAM 20 MG TAB PO SCH (20:53)
[2023-03-14 07:26] LABS: BUN Creatinine Ratio 27.8 (10-20); Calcium 9.4 mg/dl (8.6-10.3); Creatinine Clr Calc Pharmacy 76.1 ml/min; Est GFR (Non-African American) 69.9 ml/min
[2023-03-14] MEDS: INSULIN ASPART PER UNIT CHARGE SC SCH ×4 (08:46→20:26)
[2023-03-14] MEDS: MAGNESIUM OXIDE 400 MG TAB PO SCH (08:47)
[2023-03-14] MEDS: BACLOFEN 10 MG TAB PO SCH ×3 (08:48→20:43)
[2023-03-14] MEDS: LOSARTAN POTASSIUM 50 MG TAB PO SCH (08:48)
[2023-03-14] MEDS: POTASSIUM CHLORIDE CRTAB 20 MEQ TABCR PO SCH (08:48)
[2023-03-14] MEDS: THIAMINE HCL 100 MG TAB PO SCH (08:48)
[2023-03-14] MEDS: SPIRONOLACTONE 25 MG TAB PO SCH ×2 (08:49→17:07)
[2023-03-14] MEDS: CEFDINIR 300 MG CAP PO SCH ×2 (08:50→20:43)
[2023-03-14] MEDS: FOLIC ACID 1 MG TAB PO SCH (08:50)
[2023-03-14] MEDS: FUROSEMIDE 40 MG/4 ML VIAL IV SCH ×2 (10:53→17:11)
--- NOTE | 2023-03-14 16:50 | Cardiology Progress Note ---
Date of Service March 14, 2023 Assessment & Plan (1) Acute on chronic diastolic heart failure with preserved ejection fraction: (2) Wenckebach second degree AV block: (3) Bilateral cellulitis of lower leg: Plan 87-year-old patient with acute heart failure with preserved ejection fraction versus venous insufficiency. Telemetry feeling second-degree AV block Mobitz type I without associated symptoms. Continue IV furosemide 40 mg twice daily in addition to spironolactone. Supplement electrolytes as needed. Follow fluid balance, daily weight, GFR, and electrolytes. Likely transition to oral diuretic therapy in the next 24 to 48 hours. Patient remains in second-degree AV block Mobitz type I on telemetry. No recurrent high degree AV block over the past 48 hours. Continue to hold AV galdino blocking agents. No urgent indication for pacemaker currently, however, padmini pete advanced age and resting heart rate at times below 40 bpm will discuss further with electrophysiology. Patient unsure whether he would agree to pacemaker in the future. Currently states "I guess I have to do what I have to do". Admission and Anticipated Discharge Date Admission Date: March 07, 2023 Subjective Patient seen and examined at the bedside. Edema improved. Tolerating IV diuretic therapy. Telemetry reveals second-degree AV block Mobitz type I with heart rate 40 bpm. No lightheadedness, dizziness, syncope, or near syncope. Review of Systems Review of Systems: All systems reviewed & are unremarkable except as noted in Subjective Physical Exam Constitutional: + morbidly obese; no acute distress Respiratory: normal respiratory effort; no respiratory distress Auscultation: + diminished lung sounds (Bases); no crackles, no rhonchi and no wheezes Cardiovascular: Rate/Rhythm: + abnormal rhythm Heart Sounds: normal S1 and normal S2; no murmur Vessels: no JVD Extremities: + edema (2+ bilateral lower extremity edema with erythema, stasis changes) Gastrointestinal (Abdomen): Inspection/Auscultation: normal bowel sounds; abdomen not distended Percussion/Palpation: abdomen soft; abdomen nontender and no guarding Neurologic: CN's II-XI intact bilaterally and moves all extremities; no focal motor deficits Results & Data Vital Signs (Past 12 Hours) Vital Signs Temp Pulse Pulse Resp BP Pulse Ox O2 Del Method 03/14/23 15:07 80 03/14/23 15:06 36.4 C L 55 L 18 167/85 H 97 Room Air 03/14/23 11:08 36.6 C 54 L 18 129/74 96 Room Air 03/14/23 08:00 Room Air 03/14/23 07:24 36.4 C L 38 L 18 156/66 H 94 Room Air
--- NOTE | 2023-03-14 17:13 | Hospitalist Progress Note ---
Date of Service March 14, 2023 Assessment & Plan (1) Acute CHF: Plan: Patient is an 87 yr male with past medical history significant for hypertension, diabetes, CHF, depression, ambulatory dysfunction comes because of worsening lower extremity edema. Lower extremity edema getting worse lately. Seems to referred by PCP when physical therapy was concerned about his lower extreme edema. Ambulates with a walker. Patient denies any chest pain. Patient denies a Acute diastolic CHF --CXR:Cardiomegaly with interval development of mild interstitial pulmonary edema and small bilateral pleural effusions. --ECHO: Mild concentric LVH. Left ventricle wall motion is normal. EF 55 to 60%. Pulmonary artery systolic pressure is estimated to be 41 mmHg. Doppler assessment for left ventricular diastolic function is indeterminate due to underlying irregular rhythm. -- Continue IV Lasix 40mg BID Also on Aldactone Beta-will held due to bradycardia Monitor volume status, I's and O's Appreciate cardiology input Saturating well on room air Needs follow-up with cardiology on discharge Likely transition to p.o. diuretics in 1 to 2 days Bradycardia/AV block 5 Beats NSVT asymptomatic Atenolol held due to bradycardia Cardiology on board Emergent indication for pacemaker currently Cardiology plans to discuss with EP for further recommendations Possible B/L lower extremity cellulitis Empirically on Rocephin, daptomycin>> transition to Omnicef Clinically improved Abnormal blood cultures Likely contamination 1/4 blood cultures grew Abiotrophia/Granulicatella Sp. Repeat blood cultures: No growth to date Hypokalemia Replete electrolytes as needed Monitor Chronic left knee pain likely osteoarthritis Popliteal cyst --CT Knee: No fracture or dislocation within the left knee. Small left knee effusion. Tricompartmental osteoarthritis as described above. Anterolateral subcutaneous edema. 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 Mood disorder Prior history of suicidal attempt as per record Previously on Zoloft--he abruptly discontinued in January 2022 Appreciate psychiatry input Continue citalopram as per psychiatry DM II HbA1c 5.9 Hold metformin Insulin sliding scale while hospitalized Monitor BGs Hypertension Hold atenolol due to bradycardia Started on losartan 50 mg daily Monitor BP Obesity Sleep study as outpatient BMI 38 Ambulatory dysfunction PT OT when stable Fall precautions DVT Px: Lovenox SQ Code Status DNI/DNR Disposition Case management to help with discharge planning Admission and Anticipated Discharge Date Admission Date: March 07, 2023 Subjective Patient is seen and examined at bedside No new complaints Discussed with patient's daughter over the phone Denies any chest pain, dyspnea, dizziness, nausea, vomiting, abdominal pain Review of Systems Review of Systems: All systems reviewed & are unremarkable except as noted in Subjective Physical Exam Physical Exam: Physical Exam: Vitals signs as noted above General Appearance:Obese, no apparent distress Head: normocephalic, Atraumatic Eyes: normal inspection, EOMI Neck: supple, Trachea midline Respiratory/Chest: Decreased breath sounds, CTA, No accessory muscle use Cardiovascular: S1, S2, No murmur, +Bradycardia Abdomen/GI:Soft, Non tender, Bowel sounds present Extremities/Musculoskeletal:normal inspection, 2+ B/L LE edema, erythema improved, +Abrasions, scabs Neurologic/Psych:AAOX3, grossly no focal neurological deficits Skin: normal color, warm Results & Data Results & Data Vital Signs (Past 12 Hours) Vital Signs Temp Pulse Pulse Resp BP Pulse Ox O2 Del Method 03/14/23 15:07 80 03/14/23 15:06 36.4 C L 55 L 18 167/85 H 97 Room Air 03/14/23 11:08 36.6 C 54 L 18 129/74 96 Room Air 03/14/23 08:00 Room Air 03/14/23 07:24 36.4 C L 38 L 18 156/66 H 94 Room Air Laboratory Results [facility] 03/14/23 06:11 Sodium 136 Potassium 4.0 Chloride 98 Carbon Dioxide 30 BUN 27 H Creatinine 0.97 Glucose 99 Calcium 9.4
[2023-03-14] MEDS: CITALOPRAM 20 MG TAB PO SCH (20:43)
[2023-03-14] MEDS: ENOXAPARIN INJ 40 MG/0.4 ML SYR SQ SCH (20:43)
[2023-03-15] MEDS: INSULIN ASPART PER UNIT CHARGE SC SCH ×4 (08:24→20:12)
[2023-03-15] MEDS: FUROSEMIDE 40 MG/4 ML VIAL IV SCH (08:25)
[2023-03-15] MEDS: LOSARTAN POTASSIUM 50 MG TAB PO SCH (08:26)
[2023-03-15] MEDS: SPIRONOLACTONE 25 MG TAB PO SCH ×2 (08:26→16:39)
[2023-03-15] MEDS: FOLIC ACID 1 MG TAB PO SCH (08:26)
[2023-03-15] MEDS: BACLOFEN 10 MG TAB PO SCH ×3 (08:27→20:20)
[2023-03-15] MEDS: MAGNESIUM OXIDE 400 MG TAB PO SCH (08:27)
[2023-03-15] MEDS: THIAMINE HCL 100 MG TAB PO SCH (08:27)
[2023-03-15 08:28] LABS: BUN Creatinine Ratio 32.3 (10-20); Calcium 9.5 mg/dl (8.6-10.3); Creatinine Clr Calc Pharmacy 74.6 ml/min; Est GFR (Non-African American) 68.2 ml/min; Magnesium 2.2 mg/dl (1.7-2.4); Potassium 4.1 mmol/L (3.5-5.1)
[2023-03-15] MEDS: POTASSIUM CHLORIDE CRTAB 20 MEQ TABCR PO SCH (08:28)
--- NOTE | 2023-03-15 10:17 | Cardiology Progress Note ---
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 Telemetry feeling second-degree AV block Mobitz type I without associated symptoms. Discontinue IV furosemide. Transition to oral furosemide 40 mg twice daily (outpatient dose 40 mg twice daily). Supplement electrolytes as needed. Follow fluid balance, daily weight, GFR, and electrolytes. Patient remains in second-degree AV block Mobitz type I on telemetry. No recurrent high degree AV block over the past 48 hours. Continue to hold AV galdino blocking agents. No urgent indication for pacemaker currently, however, resting heart rate 40 bpm or high 30s with heart rate reaching approximately 60 bpm with activity. I am concerned regarding patient becoming symptomatic when he returns to normal activity and/or progression of underlying conduction disease. Risk versus benefit of pacemaker implantation reviewed with patient and his daughter. Patient agreeable at this time. Will discuss further with electrophysiology. N.p.o. except medications after midnight. Admission and Anticipated Discharge Date Admission Date: March 07, 2023 Subjective Patient seen examined the bedside. Daughter, Marci, present as well. Lower extremity edema improved. Renal function remains stable. Patient denies chest pain or shortness of breath. No lightheadedness, dizziness, syncope, or near syncope. Telemetry reveals second-degree AV block Mobitz type I. Heart rate 40 bpm at rest at times dipping to the high 30s. Heart rates as high as 60 bpm noted with activity. Review of Systems Review of Systems: All systems reviewed & are unremarkable except as noted in Subjective Physical Exam Constitutional: + morbidly obese; no acute distress Respiratory: normal respiratory effort; no respiratory distress Auscultation: + diminished lung sounds (Bases); no crackles, no rhonchi and no wheezes Cardiovascular: Rate/Rhythm: + abnormal rhythm Heart Sounds: normal S1 and normal S2; no murmur Vessels: no JVD Extremities: + edema (2+ bilateral lower extremity edema with erythema, stasis changes) Gastrointestinal (Abdomen): Inspection/Auscultation: normal bowel sounds; abdomen not distended Percussion/Palpation: abdomen soft; abdomen nontender and no guarding Neurologic: CN's II-XI intact bilaterally and moves all extremities; no focal motor deficits Results & Data Vital Signs (Past 12 Hours) Vital Signs Temp Pulse Pulse Resp BP Pulse Ox O2 Del Method 03/15/23 07:14 36.2 C L 36 L 18 141/63 H 92 Room Air 03/15/23 04:00 36.8 C 60 21 164/77 H 92 Room Air 03/14/23 23:58 36.7 C 62 20 128/68 94 Room Air 03/14/23 23:00 42 L Laboratory Results Comprehensive Metabolic Panel 03/15/23 Range/Units 07:05 Sodium 136 (136-145) mmol/L Potassium 4.1 (3.5-5.1) mmol/L Chloride 98 (98-107) mmol/L Carbon Dioxide 31 (21-32) mmol/L BUN 32 H (6-23) mg/dl Creatinine 0.99 (0.6-1.4) mg/dl Glucose 100 H (70-99(Fasting)) mg/dl Calcium 9.5 (8.6-10.3) mg/dl Intake and Output 03/14/23 03/15/23 03/15/23 22:59 06:59 14:59 Intake Total 0 / 640 Balance 0 / 640 Intake: Oral 0 / 640 Other: # Unmeasured Voids 1 2
--- NOTE | 2023-03-15 16:23 | Hospitalist Progress Note ---
Date of Service March 15, 2023 Assessment & Plan (1) Acute CHF: Plan: Patient is an 87 yr male with past medical history significant for hypertension, diabetes, CHF, depression, ambulatory dysfunction comes because of worsening lower extremity edema. Lower extremity edema getting worse lately. Seems to referred by PCP when physical therapy was concerned about his lower extreme edema. Ambulates with a walker. Patient denies any chest pain. Patient denies a Acute diastolic CHF --CXR:Cardiomegaly with interval development of mild interstitial pulmonary edema and small bilateral pleural effusions. --ECHO: Mild concentric LVH. Left ventricle wall motion is normal. EF 55 to 60%. Pulmonary artery systolic pressure is estimated to be 41 mmHg. Doppler assessment for left ventricular diastolic function is indeterminate due to underlying irregular rhythm. --Received IV Lasix 40mg BID Also on Aldactone Beta-will held due to bradycardia Monitor volume status, I's and O's Appreciate cardiology input Saturating well on room air Needs follow-up with cardiology on discharge Transition to PO Lasix 40 mg twice daily Bradycardia/AV block 5 Beats NSVT asymptomatic Atenolol held due to bradycardia Appreciate cardiology help Plan for pacemaker placement tomorrow N.p.o. after midnight Possible B/L lower extremity cellulitis Empirically on Rocephin, daptomycin>>Omnicef Completed antibiotic course Abnormal blood cultures Likely contamination 1/4 blood cultures grew Abiotrophia/Granulicatella Sp. Repeat blood cultures: No growth to date Hypokalemia Replete electrolytes as needed Monitor Chronic left knee pain likely osteoarthritis Popliteal cyst --CT Knee: No fracture or dislocation within the left knee. Small left knee effusion. Tricompartmental osteoarthritis as described above. Anterolateral subcutaneous edema. 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 Mood disorder Prior history of suicidal attempt as per record Previously on Zoloft--he abruptly discontinued in January 2022 Appreciate psychiatry input Continue citalopram as per psychiatry DM II HbA1c 5.9 Hold metformin Insulin sliding scale while hospitalized Monitor BGs Hypertension Hold atenolol due to bradycardia Started on losartan 50 mg daily Monitor BP Obesity Sleep study as outpatient BMI 38 Ambulatory dysfunction PT OT when stable Fall precautions DVT Px: Lovenox SQ Code Status DNI/DNR Disposition Case management to help with discharge planning Admission and Anticipated Discharge Date Admission Date: March 07, 2023 Subjective Patient is seen and examined at bedside States feeling well today No new complaints Denies any chest pain, dyspnea, dizziness, nausea, vomiting, abdominal pain Plan for pacemaker placement tomorrow Review of Systems Review of Systems: All systems reviewed & are unremarkable except as noted in Subjective Physical Exam Physical Exam: Physical Exam: Vitals signs as noted above General Appearance:Obese, no apparent distress Head: normocephalic, Atraumatic Eyes: normal inspection, EOMI Neck: supple, Trachea midline Respiratory/Chest: Decreased breath sounds, CTA, No accessory muscle use Cardiovascular: S1, S2, No murmur, +Bradycardia Abdomen/GI:Soft, Non tender, Bowel sounds present Extremities/Musculoskeletal:normal inspection, 2+ B/L LE edema, erythema improve d, +Abrasions, scabs Neurologic/Psych:AAOX3, grossly no focal neurological deficits Skin: normal color, warm Results & Data Results & Data Vital Signs (Past 12 Hours) Vital Signs Temp Pulse Pulse Resp BP Pulse Ox O2 Del Method 03/15/23 15:56 36.4 C L 49 L 18 112/58 L 93 Room Air 03/15/23 15:09 66 03/15/23 11:28 36.3 C L 45 L 18 137/72 94 Room Air 03/15/23 11:26 42 L 03/15/23 07:14 36.2 C L 36 L 18 141/63 H 92 Room Air Laboratory Results [facility] 03/15/23 07:05 Sodium 136 Potassium 4.1 Chloride 98 Carbon Dioxide 31 BUN 32 H Creatinine 0.99 Glucose 100 H Calcium 9.5
[2023-03-15] MEDS: FUROSEMIDE 40 MG TAB PO SCH (16:39)
[2023-03-15] MEDS: ENOXAPARIN INJ 40 MG/0.4 ML SYR SQ SCH (20:20)
[2023-03-15] MEDS: CITALOPRAM 20 MG TAB PO SCH (20:20)
[2023-03-16 07:24] LABS: Calcium 9.5 mg/dl (8.6-10.3); Potassium 4.3 mmol/L (3.5-5.1)
[2023-03-16 07:30] LABS: Creatinine Clr Calc Pharmacy 71.6 ml/min; Est GFR (African American) 75.3 ml/min
[2023-03-16] MEDS: INSULIN ASPART PER UNIT CHARGE SC SCH ×4 (07:30→21:05)
[2023-03-16] MEDS: FUROSEMIDE 40 MG TAB PO SCH ×2 (09:24→18:29)
[2023-03-16] MEDS: SPIRONOLACTONE 25 MG TAB PO SCH ×2 (09:24→18:28)
[2023-03-16] MEDS: BACLOFEN 10 MG TAB PO SCH ×3 (09:24→20:59)
[2023-03-16] MEDS: FOLIC ACID 1 MG TAB PO SCH (09:24)
[2023-03-16] MEDS: THIAMINE HCL 100 MG TAB PO SCH (09:25)
[2023-03-16] MEDS: MAGNESIUM OXIDE 400 MG TAB PO SCH (09:25)
[2023-03-16] MEDS: POTASSIUM CHLORIDE CRTAB 20 MEQ TABCR PO SCH (09:25)
[2023-03-16] MEDS: LOSARTAN POTASSIUM 50 MG TAB PO SCH (09:25)
--- NOTE | 2023-03-16 13:31 | Hospitalist Progress Note ---
Date of Service March 16, 2023 Assessment & Plan (1) Acute CHF: Plan: Patient is an 87 yr male with past medical history significant for hypertension, diabetes, CHF, depression, ambulatory dysfunction comes because of worsening lower extremity edema. Acute on chronic diastolic CHF Patient presented with worsening bilateral lower extremity edema. --CXR on admission cardiomegaly with interval development of mild interstitial pulmonary edema and small bilateral pleural effusions. --ECHO: Mild concentric LVH. Left ventricle wall motion is normal. EF 55 to 60%. Pulmonary artery systolic pressure is estimated to be 41 mmHg. Doppler assessment for left ventricular diastolic function is indeterminate due to underlying irregular rhythm. Patient was diuresed with IV Lasix during hospitalization Currently switched over to p.o. Lasix and Aldactone Continue input and output monitoring, daily weights. Bradycardia Second-degree AV block Telemetry shows heart rate of 30s to 40s. Atenolol on hold. Plan for pacemaker placement today Will follow-up on cardiology recommendation after the procedure Possible B/L lower extremity cellulitis Empirically on Rocephin, daptomycin>>Omnicef Completed antibiotic course Abnormal blood cultures Likely contamination 1/4 blood cultures grew Abiotrophia/Granulicatella Sp. Repeat blood cultures: No growth to date Hypokalemia Replete electrolytes as needed Monitor Chronic left knee pain likely osteoarthritis Popliteal cyst --CT Knee: No fracture or dislocation within the left knee. Small left knee effusion. Tricompartmental osteoarthritis as described above. Anterolateral subcutaneous edema. 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 Will follow-up on cardiology recommendation. Time spent evaluating patient, direct bedside care, chart review, placing orders, interpretation of diagnostic studies, discussion with patient as well as other required patient management activities is 50 minutes Please note the above document was generated using voice recognition software. It may contain grammatical, syntax or spelling errors. Any formal questions or concerns about the content, text or information contained within the body of this dictation should be directly addressed to the provider for clarification Admission and Anticipated Discharge Date Admission Date: March 07, 2023 Subjective Patient seen and examined at bedside. Comfortable; not in distress. Denies fever, chills, chest pain, shortness of breath, abdominal pain or urinary symptoms. No significant overnight events Patient is n.p.o. for possible procedure today Review of Systems Review of Systems: All systems reviewed & are unremarkable except as noted in Subjective Physical Exam Physical Exam: Physical Exam: Vitals signs as noted above General Appearance:Obese, no apparent distress Head: normocephalic, Atraumatic Eyes: normal inspection, EOMI Neck: supple, Trachea midline Respiratory/Chest: Bilateral vesicular breath sound Cardiovascular: S1, S2, No murmur, +Bradycardia Abdomen/GI:Soft, Non tender, Bowel sounds present Extremities/Musculoskeletal:normal inspection, 2+ B/L LE edema, erythema improved, +Abrasions, scabs Neurologic/Psych:AAOX3, grossly no focal neurological deficits Skin: normal color, warm Results & Data Results & Data Vital Signs (Past 12 Hours) Vital Signs Temp Pulse Pulse Resp BP Pulse Ox O2 Del Method 03/16/23 11:11 36.4 C L 36 L 18 145/69 H 92 Room Air 03/16/23 10:00 39 L 03/16/23 07:12 36.4 C L 66 19 146/80 H 94 Room Air 03/16/23 03:29 37.5 C 78 20 140/76 94 Room Air
--- NOTE | 2023-03-16 13:58 | Cardiology Progress Note ---
Date of Service March 16, 2023 Assessment & Plan (1) Brandon second degree AV block: (2) Acute on chronic diastolic heart failure with preserved ejection fraction: (3) Bilateral cellulitis of lower leg: Plan 87-year-old patient with acute heart failure with preserved ejection fraction versus venous insufficiency. Telemetry feeling second-degree AV block Mobitz type I without associated symptoms. Transitioned to oral furosemide 40 mg twice daily (outpatient dose 40 mg twice daily) 03/15/2022. Supplement electrolytes as needed. Follow fluid balance, daily weight, GFR, and electrolytes. Patient remains in second-degree AV block Mobitz type I on telemetry. No r ecurrent high degree AV block over the past 72 hours. Continue to hold AV galdino blocking agents. No urgent indication for pacemaker currently, however, resting heart rate 40 bpm or high 30s with heart rate reaching approximately 60 bpm with activity. I am concerned regarding patient becoming symptomatic when he returns to normal activity and/or progression of underlying conduction disease. Risk versus benefit of pacemaker implantation reviewed with patient and his daughter. Patient agreeable to proceed with pacemaker implantation today. Recommendations discussed with patient's daughter, Marci, via telephone. I questions answered to her satisfaction. Possible discharge in 24-48 hours. Admission and Anticipated Discharge Date Admission Date: March 07, 2023 Subjective Patient seen and examined at the bedside. Resting comfortably. Edema improved. Remains in second-degree AV block Mobitz type I on telemetry. Heart rate ranging from 38 to 60 bpm. Denies lightheadedness, dizziness, syncope, near syncope. No chest discomfort or heaviness. Review of Systems Review of Systems: All systems reviewed & are unremarkable except as noted in Subjective Physical Exam Constitutional: + morbidly obese; no acute distress Respiratory: normal respiratory effort; no respiratory distress Auscultation: + diminished lung sounds (Bases); no crackles, no rhonchi and no wheezes Cardiovascular: Rate/Rhythm: + abnormal rhythm Heart Sounds: normal S1 and normal S2; no murmur Vessels: no JVD Extremities: + edema (2+ bilateral lower extremity edema with erythema, stasis changes) Gastrointestinal (Abdomen): Inspection/Auscultation: normal bowel sounds; abdomen not distended Percussion/Palpation: abdomen soft; abdomen nontender and no guarding Neurologic: CN's II-XI intact bilaterally and moves all extremities; no focal motor deficits Results & Data Vital Signs (Past 12 Hours) Vital Signs Temp Pulse Pulse Resp BP Pulse Ox O2 Del Method 03/16/23 11:11 36.4 C L 36 L 18 145/69 H 92 Room Air 03/16/23 10:00 39 L 03/16/23 07:12 36.4 C L 66 19 146/80 H 94 Room Air 03/16/23 03:29 37.5 C 78 20 140/76 94 Room Air Laboratory Results Comprehensive Metabolic Panel 03/16/23 Range/Units 06:38 Sodium 134 L (136-145) mmol/L Potassium 4.3 (3.5-5.1) mmol/L Chloride 98 (98-107) mmol/L Carbon Dioxide 28 (21-32) mmol/L BUN 36 H (6-23) mg/dl Creatinine 1.03 (0.6-1.4) mg/dl Glucose 108 H (70-99(Fasting)) mg/dl Calcium 9.5 (8.6-10.3) mg/dl Intake and Output 03/15/23 03/16/23 03/16/23 22:59 06:59 14:59 Intake Total 750 / 750 Balance 750 / 750 Intake: Oral 750 / 750 Other: # Unmeasured Voids 3 Weight 140.8 kg Weight Measurement Method Built in [facility]
[2023-03-16] MEDS ORDERED: MIDAZOLAM HCL 5 MG/ML 1 ML VIAL ONE (15:59)
[2023-03-16] MEDS ORDERED: ceFAZolin 330 MG/ML 1 GM VIAL ONE (16:00)
[2023-03-16] MEDS ORDERED: fentaNYL citrate PF 100 MCG/2 ML VIAL ONE (16:00)
[2023-03-16] MEDS ORDERED: BUPIVACAINE 0.25% PF 30 ML VIAL ONE (16:01)
[2023-03-16] MEDS ORDERED: WATER, STERILE FOR INJ 10 ML VIAL ONE (16:01)
[2023-03-16] MEDS ORDERED: VANCOMYCIN HCL 1000MG/20ML VIAL ONE (16:01)
[2023-03-16] MEDS ORDERED: LIDOCAINE 1% LOCAL 20 ML VIAL ONE (16:01)
--- NOTE | 2023-03-16 16:05 | Pre Anesthesia Assessment ---
Date of Service March 16, 2023 Pre Sedation Assessment Vital Signs Temp Pulse Pulse Pulse Resp BP Pulse Ox 03/16/23 15:22 45 L 18 156/65 H 95 03/16/23 11:11 36.4 C L 36 L 18 145/69 H 92 03/16/23 10:00 39 L 03/16/23 07:12 36.4 C L 66 19 146/80 H 94 03/16/23 03:29 37.5 C 78 20 140/76 94 03/15/23 23:11 36.6 C 78 20 137/69 97 03/15/23 22:59 44 L 03/15/23 20:11 36.8 C 80 18 138/78 92 03/15/23 20:00 O2 Del Method 03/16/23 15:22 Room Air 03/16/23 11:11 Room Air 03/16/23 10:00 03/16/23 07:12 Room Air 03/16/23 03:29 Room Air 03/15/23 23:11 Room Air 03/15/23 22:59 03/15/23 20:11 Room Air 03/15/23 20:00 Room Air Cardiovascular RRR, no murmur, no edema Respiratory normal respiratory effort, lungs clear to auscultation Pre-Sedation Airway Assessment Smoking Status: Never smoker Hx Sleep Apnea: No Short, Thick Neck: No Thyromental Distance: > or= 3.5 Finger Breadths Oral Cavity: + WNL Mallampati Class: III ASA: ASA3 NPO Status Date of Last Intake of Fluids: 03/16/23 Time of Last Intake of Fluids: 09:00 Date of Last Intake of Solid Food: 03/15/23 Time of Last Intake of Solid Foods: 18:00 Procedure Planning Contraindications for Sedation: none Current Medications Reviewed: Yes Notes The planned sedation has been discussed with the patient. Informed Consent was obtained. I have identified the patient, determined the appropriateness of sedation and have assessed the patient immediately prior to the procedure. All medicine(s) and interventions are by my order.
--- NOTE | 2023-03-16 16:06 | History & Physical Bridge Note ---
Date of Service March 16, 2023 History & Physical Bridge Note I have examined the patient, reviewed the History & Physical and in the interval since the performance of the History & Physical I have noted the following changes of clinical significance: Pt with persistent bradycardia-recommend a dual chamber pacemaker prior to discharge. discussed the procedure and potential risks with the patient he expressed an understanding and consents signed.
[2023-03-16] MEDS: ACETAMINOPHEN 325 MG TAB PO PRN (19:50)
[2023-03-16] MEDS: CITALOPRAM 20 MG TAB PO SCH (20:59)
[2023-03-16] MEDS: ENOXAPARIN INJ 40 MG/0.4 ML SYR SQ SCH (21:00)
[2023-03-17 08:27] LABS: Basophils # (auto) 0.03 K/uL (0.00-0.20); Basophils % (auto) 0.5 %; Eosinophils # (auto) 0.34 K/uL (0.00-0.50); Eosinophils % (auto) 6.2 %; Hematocrit (blood only) 49.1 % (42.0-52.0); Hemoglobin 16.6 g/dl (14.0-18.0); Immature Granulocytes # (auto) 0.02 K/uL (0.01-0.20); Immature Granulocytes % (auto) 0.4 %; Lymphocytes # (auto) 1.01 K/uL (1.20-3.40); Lymphocytes % (auto) 18.4 %; Mean Corpuscular Hemoglobin 33.3 pg (25.0-34.0); Mean Corpuscular Hgb Conc 33.8 g/dL (32.0-36.0); Mean Corpuscular Volume 98.4 fL (80.0-100.0); Mean Platelet Volume 10.3 fL (9.4-12.4); Monocytes # (auto) 0.44 K/uL (0.11-0.59); Neutrophils # (auto) 3.64 K/uL (1.40-6.50); Neutrophils % (auto) 66.5 %; Platelet Count 153 K/uL (130-400); RDW Standard Deviation 47.5 fL (36.4-46.3); Red Blood Count 4.99 M/uL (4.70-6.10); White Blood Count 5.48 K/ul (4.8-10.8)
[2023-03-17] MEDS: FUROSEMIDE 40 MG TAB PO SCH ×2 (08:43→16:40)
[2023-03-17] MEDS: INSULIN ASPART PER UNIT CHARGE SC SCH ×4 (08:43→20:45)
[2023-03-17] MEDS: BACLOFEN 10 MG TAB PO SCH ×3 (08:44→20:29)
[2023-03-17] MEDS: MAGNESIUM OXIDE 400 MG TAB PO SCH (08:45)
[2023-03-17] MEDS: THIAMINE HCL 100 MG TAB PO SCH (08:45)
[2023-03-17] MEDS: FOLIC ACID 1 MG TAB PO SCH (08:45)
[2023-03-17] MEDS: LOSARTAN POTASSIUM 50 MG TAB PO SCH (08:45)
[2023-03-17] MEDS: SPIRONOLACTONE 25 MG TAB PO SCH (08:45)
[2023-03-17] MEDS: POTASSIUM CHLORIDE CRTAB 20 MEQ TABCR PO SCH (08:45)
--- NOTE | 2023-03-17 08:46 | XRay Report ---
XR chest 1V portable HISTORY: 87 years-old Male s/p ppm enxure no PTX status post placement of a dual lead left subclavia n pacer COMPARISON: March 07, 2023 TECHNIQUE: AP view of the chest FINDINGS: Cardiac silhouette is enlarged. Dual-lead left subclavian pacer has been placed. No postprocedural pn eumothorax identified. Trace pleural effusions suggested Suggestion of calcified pleural plaques. Pul monary vascular congestion with mild interstitial coarsening. No lobar airspace consolidation. The lily felipe appear grossly intact. IMPRESSION: 1. Status post placement of a dual lead left subclavian pacer. No postprocedural pneumothorax. 2. Cardiomegaly with pulmonary vascular congestion and probable mild pulmonary edema. 3. Trace pleural effusions. ACT 112: Negative or not required by law. The above report was generated using voice recognition software. It may contain grammatical, syntax o r spelling errors. Electronically signed by: Gerald Peters M.D. 03/17/2023 8:45 AM
[2023-03-17 08:48] LABS: BUN Creatinine Ratio 32.3 (10-20); Calcium 9.3 mg/dl (8.6-10.3); Creatinine Clr Calc Pharmacy 74.3 ml/min; Est GFR (Non-African American) 68.2 ml/min; Potassium 5.1 mmol/L (3.5-5.1)
--- NOTE | 2023-03-17 13:44 | Hospitalist Progress Note ---
Date of Service March 17, 2023 Assessment & Plan (1) Acute CHF: Plan: Patient is an 87 yr male with past medical history significant for hypertension, diabetes, CHF, depression, ambulatory dysfunction comes because of worsening lower extremity edema. Acute on chronic diastolic CHF Patient presented with worsening bilateral lower extremity edema. --CXR on admission cardiomegaly with interval development of mild interstitial pulmonary edema and small bilateral pleural effusions. --ECHO: Mild concentric LVH. Left ventricle wall motion is normal. EF 55 to 60%. Pulmonary artery systolic pressure is estimated to be 41 mmHg. Doppler assessment for left ventricular diastolic function is indeterminate due to underlying irregular rhythm. Patient was diuresed with IV Lasix during hospitalization Currently switched over to p.o. Lasix 40 mg twice daily. Aldactone on hold due to increasing potassium. Patient was also started on losartan during the hospitalization. Likely decrease the spironolactone to 50 mg once a day at discharge. Continue input and output monitoring, daily weights. Bradycardia Second-degree AV block Status post pacemaker placement on March 16, 2022 Telemetry shows heart rate of 30s to 40s. Atenolol on hold. Awaiting cardiology recommendation. Possible B/L lower extremity cellulitis Empirically on Rocephin, daptomycin>>Omnicef Completed antibiotic course Abnormal blood cultures Likely contamination 1/4 blood cultures grew Abiotrophia/Granulicatella Sp. Repeat blood cultures: No growth to date Chronic left knee pain likely osteoarthritis Popliteal cyst --CT Knee: No fracture or dislocation within the left knee. Small left knee effusion. Tricompartmental osteoarthritis as described above. Anterolateral subcutaneous edema. 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 Awaiting final cardiology recommendation. Possible discharge tomorrow to rehab. I discussed plan of care patient's daughter Marci over the phone. Answer questions/queries. Time spent evaluating patient, direct bedside care, chart review, placing orders, interpretation of diagnostic studies, discussion with patient as well as other required patient management activities is 50 minutes Please note the above document was generated using voice recognition software. It may contain grammatical, syntax or spelling errors. Any formal questions or concerns about the content, text or information contained within the body of this dictation should be directly addressed to the provider for clarification Admission and Anticipated Discharge Date Admission Date: March 07, 2023 Subjective Patient seen and examined at bedside. He reports pain over the procedure site. He denies fever, chills, chest pain or shortness of breath. Patient was undergoing pacemaker interrogation at bedside. Review of Systems Review of Systems: All systems reviewed & are unremarkable except as noted in Subjective Physical Exam Physical Exam: Physical Exam: Vitals signs as noted above General Appearance:Obese, no apparent distress Head: normocephalic, Atraumatic Eyes: normal inspection, EOMI Neck: supple, Trachea midline Respiratory/Chest: Bilateral vesicular breath sound Cardiovascular: S1, S2, No murmur, +Bradycardia Abdomen/GI:Soft, Non tender, Bowel sounds present Extremities/Musculoskeletal:normal inspection, 2+ B/L LE edema, erythema improved, +Abrasions, scabs Neurologic/Psych:AAOX3, grossly no focal neurological deficits Skin: normal color, warm Results & Data Results & Data Vital Signs (Past 12 Hours) Vital Signs Temp Pulse Pulse Resp BP Pulse Ox O2 Del Method 03/17/23 11:00 36.7 C 77 18 138/77 97 Room Air 03/17/23 07:57 36.6 C 67 20 145/97 H 98 Room Air 03/17/23 07:19 69 03/17/23 03:17 36.8 C 86 18 150/88 H 94 Room Air
--- NOTE | 2023-03-17 14:05 | Cardiology Progress Note ---
Date of Service March 17, 2023 Assessment & Plan (1) Brandon second degree AV block: (2) Acute on chronic diastolic heart failure with preserved ejection fraction: (3) Bilateral cellulitis of lower leg: Plan 87-year-old patient with acute heart failure with preserved ejection fraction versus venous insufficiency. Clinically improved with IV diuretic therapy. Transition to oral Lasix, 40 mg twice daily 03/15/2022. Tolerating spironolactone 50 mg twice daily (outpatient dose). Losartan 50 mg daily added during hospitalization to improve blood pressure control, however, borderline hyperkalemia noted today. Serum sodium trending downward. Evening dose of spironolactone placed on hold. Reduce losartan to 25 mg daily. Consider reducing spironolactone to 50 mg once daily pending review of a.m. labs 03/18/2023. Pacemaker implanted 03/16/2023 due to second-degree AV block Mobitz type I with heart rate in the high 30s to low 40s. No complications. Postprocedural x-ray without evidence of pneumothorax. Remote interrogation performed this a.m. demonstrates normal function with stable thresholds. Recommend outpatient wound check in 1 week. Establish follow-up with the [facility] heart rhythm device clinic. Admission and Anticipated Discharge Date Admission Date: March 07, 2023 Subjective Patient seen and examined at the bedside. Pacemaker implanted 03/16/2023 without complication. Notes mild soreness of his left shoulder. Denies chest heaviness or tightness. No shortness of breath. ECG performed post procedure reveals atrial sensed, ventricular paced rhythm. No evidence of pneumothorax on postprocedural x-ray. Review of Systems Review of Systems: All systems reviewed & are unremarkable except as noted in Subjective Physical Exam Constitutional: + morbidly obese; no acute distress Respiratory: normal respiratory effort; no respiratory distress Auscultation: + diminished lung sounds (Bases); no crackles, no rhonchi and no wheezes Cardiovascular: Rate/Rhythm: + abnormal rhythm Heart Sounds: normal S1 and normal S2; no murmur Vessels: no JVD Extremities: + edema (Mild bilateral lower extremity edema with erythema, stasis changes) Gastrointestinal (Abdomen): Inspection/Auscultation: normal bowel sounds; abdomen not distended Percussion/Palpation: abdomen soft; abdomen nontender and no guarding Neurologic: CN's II-XI intact bilaterally and moves all extremities; no focal motor deficits Results & Data Vital Signs (Past 12 Hours) Vital Signs Temp Pulse Pulse Resp BP Pulse Ox O2 Del Method 03/17/23 11:00 36.7 C 77 18 138/77 97 Room Air 03/17/23 07:57 36.6 C 67 20 145/97 H 98 Room Air 03/17/23 07:19 69 03/17/23 03:17 36.8 C 86 18 150/88 H 94 Room Air Laboratory Results CBC 03/17/23 Range/Units 07:58 WBC 5.48 (4.8-10.8) K/ul RBC 4.99 (4.70-6.10) M/uL Hgb 16.6 (14.0-18.0) g/dl Hct 49.1 (42.0-52.0) % Plt Count 153 (130-400) K/uL Neut # (Auto) 3.64 (1.40-6.50) K/uL Lymph # (Auto) 1.01 L (1.20-3.40) K/uL [place] # (Auto) 0.44 (0.11-0.59) K/uL Eos # (Auto) 0.34 (0.00-0.50) K/uL Baso # (Auto) 0.03 (0.00-0.20) K/uL Comprehensive Metabolic Panel 03/17/23 Range/Units 07:58 Sodium 132 L (136-145) mmol/L Potassium 5.1 (3.5-5.1) mmol/L Chloride 95 L (98-107) mmol/L Carbon Dioxide 32 (21-32) mmol/L BUN 32 H (6-23) mg/dl Creatinine 0.99 (0.6-1.4) mg/dl Glucose 135 H (70-99(Fasting)) mg/dl Calcium 9.3 (8.6-10.3) mg/dl Intake and Output 03/16/23 03/17/23 03/17/23 22:59 06:59 14:59 Intake Total 300 / 560 260 / 560 Balance 300 / 560 260 / 560 Intake: Oral 300 / 560 260 / 560 Other: # Unmeasured Voids 1 1 Weight 140.4 kg Weight Measurement Method Built in [facility]
[2023-03-17] MEDS: CITALOPRAM 20 MG TAB PO SCH (20:29)
[2023-03-17] MEDS: ENOXAPARIN INJ 40 MG/0.4 ML SYR SQ SCH (20:30)
[2023-03-17] MEDS: ACETAMINOPHEN 325 MG TAB PO PRN (21:53)
[2023-03-17] MEDS ORDERED: oxyCODONE HCL IR 5 MG TAB (IMMEDIATE RELEASE) PO STA (22:48)
[2023-03-18] MEDS: THIAMINE HCL 100 MG TAB PO SCH (08:38)
[2023-03-18] MEDS: MAGNESIUM OXIDE 400 MG TAB PO SCH (08:38)
[2023-03-18] MEDS: FOLIC ACID 1 MG TAB PO SCH (08:38)
[2023-03-18 08:39] LABS: Basophils # (auto) 0.04 K/uL (0.00-0.20); Basophils % (auto) 0.7 %; Eosinophils # (auto) 0.35 K/uL (0.00-0.50); Hemoglobin 16.4 g/dl (14.0-18.0); Immature Granulocytes # (auto) 0.01 K/uL (0.01-0.20); Immature Granulocytes % (auto) 0.2 %; Lymphocytes # (auto) 1.81 K/uL (1.20-3.40); Lymphocytes % (auto) 30.9 %; Mean Corpuscular Hemoglobin 32.9 pg (25.0-34.0); Mean Corpuscular Hgb Conc 33.5 g/dL (32.0-36.0); Mean Corpuscular Volume 98.4 fL (80.0-100.0); Mean Platelet Volume 10.4 fL (9.4-12.4); Monocytes # (auto) 0.53 K/uL (0.11-0.59); Monocytes % (auto) 9.1 %; Neutrophils # (auto) 3.11 K/uL (1.40-6.50); Neutrophils % (auto) 53.1 %; Platelet Count 148 K/uL (130-400); RDW Coefficient of Variation 12.9 % (11.5-14.5); RDW Standard Deviation 47.2 fL (36.4-46.3); Red Blood Count 4.98 M/uL (4.70-6.10); White Blood Count 5.85 K/ul (4.8-10.8)
[2023-03-18] MEDS: BACLOFEN 10 MG TAB PO SCH ×2 (08:39→13:00)
[2023-03-18] MEDS: FUROSEMIDE 40 MG TAB PO SCH (08:39)
[2023-03-18] MEDS: INSULIN ASPART PER UNIT CHARGE SC SCH ×2 (08:41→13:00)
[2023-03-18 09:00] LABS: Calcium 9.8 mg/dl (8.6-10.3); Potassium 5.3 mmol/L (3.5-5.1)
[2023-03-18] MEDS ORDERED: LOSARTAN POTASSIUM 25 MG TAB PO SCH (09:00)
[2023-03-18 09:06] LABS: BUN Creatinine Ratio 30.4 (10-20); Est GFR (African American) 76.2 ml/min; Est GFR (Non-African American) 65.8 ml/min
--- NOTE | 2023-03-18 14:22 | Discharge Summary ---
Date of Service March 18, 2023 Admission HPI Per Admitting Provider 87-year-old male with past medical history significant for hypertension, diabetes, CHF, depression, ambulatory dysfunction comes because of worsening lower extremity edema. Lower extremity edema getting worse lately. Seems to referred by PCP when physical therapy was concerned about his lower extreme edema. Ambulates with a walker. Patient denies any chest pain. Patient denies any shortness of breath. No headache. Has some runny nose. No sore throat or cough. No fevers. No nausea. No abdominal pain. Normal bowel and bladder movements. Currently resting comfortably and hemodynamically stable. Past medical history. As mentioned above Past surgical history patient denies any surgeries Social history. States quit smoking 40 years ago. Drinks about 6-7 beers in a week mostly on weekends. Family history. Father. Alcoholism. Admission Exam Per Admitting Provider General- Not in distress Head- atraumatic Eyes- PERRL. ENT- oropharynx clear Neck- supple, no JVD. Lungs- clear to auscultation no wheezing or crackles. Heart- regular rate and rhythm; no murmur, no gallop. Abdomen- normal bowel sounds, soft, nontender, no distension. Extremities- b/l gross lower extremity edema present with mild erythematous changes with some superficial ulcer on right lee Neuro- alert, oriented x 3; PERRL, no facial palsy; no dysarthria; moves extremities. Skin- warm & dry Principal Diagnosis Acute on chronic diastolic CHF Second-degree AV block status post pacemaker on March 16 Discharge Exam Physical Exam: Vitals signs as noted above General Appearance:Obese, no apparent distress Head: normocephalic, Atraumatic Eyes: normal inspection, EOMI Neck: supple, Trachea midline Respiratory/Chest: Pacemaker dressing, clean dry and intact. Cardiovascular: S1, S2, No murmur, +Bradycardia Abdomen/GI:Soft, Non tender, Bowel sounds present Extremities/Musculoskeletal:normal inspection, trace pitting edema Neurologic/Psych:AAOX3, grossly no focal neurological deficits Skin: normal color, warm Discharge Data Allergies Allergy/AdvReac Type Severity Reaction Status Date / Time No Known Allergies Allergy Unverified 03/07/23 21:07 Consultations 03/07/23 19:09 ED Decision to Admit Stat 03/08/23 08:00 Consult Cardiology Routine 03/08/23 14:17 Consult Palliative Care Routine 03/09/23 15:27 Consult Behavioral Health Liaison Routine 03/10/23 09:07 Consult Psychiatry Routine 03/11/23 11:08 Consult Orthopedic Surgery Routine 03/17/23 15:45 Consult Podiatry Routine Procedures Performed Operation Date: 03/16/23 14:00 Actual Procedures p Pacer with A/V Leads (Dual) - DO preston Gonzalez Bundle of his Recording - Shania Woodward DO s Venogram, Unilateral - Shania Woodward DO Ordered Studies 03/11/23 11:04 CT knee LT wo con Urgent 03/16/23 08:30 EP Lab Images for PACS ONCE Hospital Course (1) Acute CHF: Patient is an 87 yr male with past medical history significant for hypertension, diabetes, CHF, depression, ambulatory dysfunction comes because of worsening lower extremity edema. Acute on chronic diastolic CHF Patient presented with worsening bilateral lower extremity edema. --CXR on admission cardiomegaly with interval development of mild interstitial pulmonary edema and small bilateral pleural effusions. --ECHO: Mild concentric LVH. Left ventricle wall motion is normal. EF 55 to 60%. Pulmonary artery systolic pressure is estimated to be 41 mmHg. Doppler assessment for left ventricular diastolic function is indeterminate due to underlying irregular rhythm. Patient was diuresed with IV Lasix during hospitalization Currently switched over to p.o. Lasix 40 mg twice daily. Patient's potassium on the day of discharge was found to be slightly elevated to 5.3. Plan to hold losartan and spironolactone at discharge. Follow-up in rehab with repeat BMP. Bradycardia Second-degree AV block Status post pacemaker placement on March 16, 2022 Telemetry showed heart rate of 30s to 40s during the hospitalization. Patient underwent pacemaker placement. Patient to follow-up for wound check next week as per cardiology Possible B/L lower extremity cellulitis Empirically on Rocephin, daptomycin>>Omnicef Completed antibiotic course Abnormal blood cultures Likely contamination 1/4 blood cultures grew Abiotrophia/Granulicatella Sp. Repeat blood cultures: No growth to date Patient discharged to [facility], acute rehab. Please note the above document was generated using voice recognition software. It may contain grammatical, syntax or spelling errors. Any formal questions or concerns about the content, text or information contained within the body of this dictation should be directly addressed to the provider for clarification Total Time Total Time Spent Total Time Spent (In Minutes): 45 Total Time Includes: Examination of the Patient, Discharge Planning, Medication Reconciliation, Communication With Other Providers and Other Discharge Plan Discharge Items Patient Disposition: Transfer Inpatient Rehab Fac Reason For Visit: ACUTE CHF, Discharge Diagnosis: Acute CHF Bilateral cellulitis of lower leg Second-degree AV block status post pacemaker Activity: As commented below Activity Comment: do not lift your left elbow over the left shoulder for 1 month Lifting: No more than 10 pounds Lifting Comment: do not lift more than 10 pounds with the left arm for 2 weeks Bathing: Keep incision dry Bathing Comment: keep dressing on & dry until wound check next week Non-emergency contact: Primary Care Provider Call non-emergency contact if: you have any medication questions and your symptoms worsen Follow-up/Referrals: Mahi Arvizu MD [Primary Care Provider] - Diet: Regular Addtl Attending Provider Instructions: You were admitted to the hospital due to acute on chronic heart failure. You were evaluated by cardiology during the hospitalization. They recommend that you to be on Lasix 40 mg twice a day(morning and in the afternoon) You had pacemaker placed by the chiropractic teacher during the hospitalization. Device and wound check at [facility] next tuesday03/22/2023 at 1:30 PM. You were found to have elevated potassium level (5.2) during lab work today. Do BMP on March 20, 2023 (on Tuesday) to check on the potassium level. You can start losartan starting March 21, 2023 after the doctor in the rehab reviews your potassium level. Please do not restart it immediately. Adjustment of your blood pressure medications should be done as outpatient. Please follow-up with podiatry next week to check on the foot. Please follow-up with your primary care doctor after discharge from rehab. Pending Studies at Discharge: No Stand-Alone Forms: My [employer] Information Skilled Items Patient informed of condition?: Yes DNR: Yes Discharge Level of Care: Acute rehab Communicable Disease: No Discharge Prognosis: Stable Lines: None Urinary Catheter: No Medications and DC Order Prescriptions: New acetaminophen 325 mg Tablet 650 mg PO Q4H PRN (Reason: pain) Qty: 30 0RF magnesium oxide 400 mg (241.3 mg magnesium) Tablet 400 mg PO QAM Qty: 60 0RF losartan 25 mg tablet 25 mg PO DAILY Qty: 30 0RF Continued baclofen 10 mg tablet 5 mg PO TID citalopram 20 mg tablet 20 mg PO HS metformin 500 mg tablet 500 mg PO QAM folic acid 1 mg tablet 1 mg PO QAM furosemide 40 mg tablet 40 mg PO BID Rx Instructions: morning and noon Discontinued spironolactone 25 mg tablet 50 mg PO BID Rx Instructions: am & pm naproxen sodium 220 mg Tablet 220 mg PO QAM atenolol 25 mg tablet 25 mg PO QAM Discharge Orders: Discharge Order (Routine); Ordered 03/18/23 Ordered By: Brandon Cueto/Other Patient Handouts: Managing Type 2 Diabetes, Heart Failure Make Changes Diet Admission Data Admit Date/Time: 03/07/23 20:27 Attending Provider: Brandon Mcbride Admit Provider: Danyel Srivastava Primary Care Provider: Mahi Arvizu Other Providers: Danyel Srivastava; Asher Negrete; [facility]; Siomara Smith; Juana Soriano; Mayra Simms; Mars Montero; Ori Altman; Van Rushing; Gerber Centeno; Vic Shine; Juliana Patricio; Dov Mcmillan; Nanda Resendez; Júnior Carranza; Ryder Deleon; Ori Davis; Storm Rizzo; Ryder Jean; Rodríguez Macias; Matt Carrizales; Elías Brown; Andres Cuadra; Nanda Shane; Wang Hanna; Dany Velasquez; Ankita Henderson; Nash Jarrell; Onel Martinez; Sahara Gooden; Gerald Gee; Morenita Baez; Chris Jha; [facility]; Nash Avalos
--- NOTE | 2023-03-18 22:29 | Electrocardiogram Report ---
Test Reason : Blood Pressure : / mmHG Vent. Rate : 068 BPM Atrial Rate : 068 BPM P-R Int : 172 ms QRS Dur : 128 ms QT Int : 456 ms P-R-T Axes : 070 -44 063 degrees QTc Int : 484 ms Poor data quality, interpretation may be adversely affected Atrial-sensed ventricular-paced rhythm Abnormal ECG When compared with ECG of 10-MAR-2023 19:50, Electronic ventricular pacemaker has replaced Sinus rhythm Confirmed by Shailesh Junior ([id number]) on 03/18/2023 10:28:55 PM Referred By: REFERRED SELF Confirmed By:Shailesh Junior
--- NOTE | 2023-03-23 13:35 | Operative Report ---
Post Operative Report DICTATED BY:Shania Woodward D.O. DATE OF PROCEDURE: 03/16/2023. PREOPERATIVE DIAGNOSES: Complete heart block/second degree AV block Mobitz Type II POSTOPERATIVE DIAGNOSIS: Same PROCEDURE: A dual-chamber rate responsive permanent pacemaker and intracardiac electrogram His bundle recordings, along with a peripheral venogram under fluoroscopic guidance. SURGEON: Shania Woodward DO ASSISTANTS: None. ANESTHESIA: Monitored conscious sedation administered under my supervision by Lolly Torres. Start time 4:19pm, end time 5:28pm, a total of 5 mg of Versed and 100 mcg of fentanyl. INTRAVENOUS FLUIDS: 40 mL. CONTRAST: 13 mL. ANTIBIOTICS: 3 grams of Ancef. ADDITIONAL MEDICATIONS: None BLOOD LOSS: 50 mL. URINE OUTPUT: Not applicable. SPECIMENS: None. FINDINGS: See below. DRAINS: None. COMPLICATIONS: None. CONDITION: Stable. INDICATIONS: This is a 87-year-old gentleman who has a past medical history HTN, DM, Chronic leg swelling, chronic heart failure with preserved EF-NYHA Class II-III. He was admitted to [facility] due to worsening leg swelling and found to be in a persistent Complete heart block/second degree AV block Mobitz Type II. Once he was cleared from an infectious process and he was diuresed he was recommended a dual chamber pacemaker prior to hospital discharge. CONSENT: Consent was obtained prior to the patient going into the electrophysiology lab. The patient was informed of the risks, benefits, and alternatives to the procedure. Risks include, but not limited to, sudden cardiac , cardiac arrhythmias, cerebrovascular accident, myocardial infarction, injury to his blood vessels, chamber of the heart and lung, bleeding and infection. The patient understood these risks and agreed to the procedure as planned. Informed consent was obtained. DESCRIPTION OF PROCEDURE: The patient was brought into electrophysiology lab in a fasting state. He was connected to continuous cardiac monitoring. A timeout was performed to ensure the patient's identity and procedure correctly. He was prepped and draped in the left infraclavicular space in normal surgical standard fashion. Monitored conscious sedation was given throughout the procedure for the patient's comfort level. Davison precautions were maintained throughout the procedure. Prophylactic antibiotics were given prior to incision. A 20 mL of 1% lidocaine and bupivacaine mixture were given in the left deltopectoral groove. An incision was made in the left deltopectoral groove. Blunt dissection was performed down to the pectoralis muscle. Then, using blunt dissection over the pectoralis muscle within the pectoral fascia, a pacemaker pocket was created. Then, a peripheral venogram was performed to identify the axillary vein. Venous axillary access was obtained through a needlestick without any problems. A guidewire was inserted without any resistance. A 6- Nigerien sheath was inserted over the guidewire without any resistance. Dilator was removed and a second guidewire was inserted through the sheath to allow for retained venous access. Then a 9 Nigerien sheath was inserted over one of the guidewires. The guidewire and dilator were removed. Then, the [employer] Vault 3D medium sheath was inserted through the 9-Nigerien sheath over a Glidewire into the right ventricle. The Glidewire and dilator were removed. Then, the left bundle lead was advanced through the sheath and intracardiac electrogram His bundle recordings were performed when the camera was in JOLLY 10. Once I found where the His bundle is, see below for results, I then moved the camera to JOLLY 30 and marked where the His bundle was on my fluoroscopy screen. I came down about 2 cm from this in a line that would extend out to the apex and then started coming on pacing. Once I found an area where I had a nice W formed pace complex in my lead V1, I then moved the camera to AFGHAN 30. Then the helix was extended into the septum. Then the helix locking tool was placed. Then the lead was screwed further into the septum while pacing by giving slow clockwise turns. The paced complex changed to a nice R' in V1 and the pacing stim to peak QRS in V6 was good. Of note I did have to reposition (2x) it and ended up using the large curve 3D car greaser to successfully position the lead. I then gave contrast through the sheath to see how far the lead was into the septum and then I slit the [employer] Vault 3D large curve sheath under fluoroscopic guidance and left the 9-Nigerien sheath in while I positioned the right atrial lead. A 6-Nigerien sheath was inserted over the retained guidewire, the guidewire and dilator removed. The right atrial lead was then advanced into right atrium and positioned into right atrial appendage under fluoroscopic guidance. There was adequate pacing and sensing thresholds and no diaphragmatic stimulation with high output pacing. The 6-Nigerien sheath was peeled away and the lead was fixated to the pectoralis muscle using 0 silk suture. The 9-Nigerien sheath around the left bundle lead was peeled away and the lead was fixated to pectoralis muscle using 0 silk suture. The pocket was flushed with copious amounts of vancomycin and saline wash and inspected for hemostasis. The leads were then attached to the pulse generator making sure the pins were in appropriate position, passed set screws, and set screws were all tightened. Pulse generator was then placed in the antibiotic pouch followed then by being placed in the pocket, making sure the leads were lying flat beneath the device. The incision was closed in a 3-layer fashion using 2-0 Vicryl interrupted suture, followed by 3-0 Vicryl interrupted suture, followed by 4-0 Monocryl running stitch. Then a primaseal dressing was placed EQUIPMENT: 1. Pulse generator is a [employer] MRI Model Number [id number] SN: [id number]. 2. Right atrial lead, [employer] Tendril STS [id number] SN: [id number] 3. Left bundle lead, [place] SJM Tendril STS [id number] SN: [id number] INTRAPROCEDURAL FINDINGS: 1. Intracardiac electrogram His bundle recordings, AH is 89 milliseconds, HV is 75 milliseconds. 2. Right atrial lead, P waves 1.7 millivolts, impedance 450 ohms, threshold 0.8 volts at 0.4 milliseconds. 3. Left bundle lead, R waves 9.3 millivolts, impedance 570 ohms, threshold 1.2 volts at 0.4 milliseconds. FINAL MEASUREMENTS THROUGH THE DEVICE: 1. Right atrial lead, P waves 1.9 millivolts, impedance 540 ohms, threshold 0.75 volt at 0.4 milliseconds. 2. Left bundle lead, R waves 11.9 millivolts, impedance 660 ohms, threshold 0.75 volts at 0.4 milliseconds. FINAL PARAMETERS: DDD 60/120, right atrial amplitude 3.5 volts, pulse width 0.4 milliseconds, sensitivity 0.5 millivolts. Left bundle lead amplitude 3.5 volts, pulse width 0.4 milliseconds, sensitivity 2 millivolts. IMPRESSION: Successful dual chamber rate responsive permanent pacemaker under fluoroscopic guidance along with peripheral venogram and intracardiac electrogram His bundle recordings, all under fluoroscopic guidance secondary to Complete heart block/second degree AV block Mobitz Type II PLAN: Monitor the patient post-procedure. A 12-lead ECG, chest x-ray. He is not to lift the left elbow or left shoulder for 1 month. He cannot lift more than 10 pounds with the left arm for 2 weeks. He is to keep the dressing on and dry until his wound check next week.
== END 2023-03-18 15:44 | DRG 242 ==
LOC: ED 15:39 → SUATTDRO 20:27 → EDINP 20:27 → 2S 22:21

== ENCOUNTER 2024-04-17 14:28 | Inpatient (IN) ==
--- NOTE | 2024-04-17 14:59 | Emergency Department Note ---
Impression & Plan Weakness, Acute pain of right hip ED Provider Note Provider: Storm Cho MD CHIEF COMPLAINT: HISTORY OF PRESENT ILLNESS: Patient is a 88-year-old gentleman past medical history including CHF, AV block with pacemaker presenting here today the ambulance from home. Patient states that last night at home he was transferring to wheelchair and standing at the sink and felt weak and lowered himself to the ground. Got stuck on the ground overnight. Did not sleep very well. Laid on his right side has a bit of soreness to the right hip. Do not fall strike his head. Denies any head neck or significant back pain. Denies chest pain or significant difficulty breathing. Reports he did not eat or drink and has not had any medications today. Was able to use Rosie to contact his daughter and ambulance was contacted and brought him here. Later additional history that this is secondary there were the patient's had to lower himself to the ground. PAST MEDICAL HISTORY: As noted above MEDICATIONS: Reviewed home medications SOCIAL HISTORY: Lives alone, history of regular alcohol use PHYSICAL EXAM: GENERAL: alert and oriented in no acute distress on stretcher Head: normocephalic and atraumatic EYES: No discharge or icterus trace bilateral injection. PERRL, EOMI. NECK: Trachea midline. Supple no midline tenderness ENT: Mucous membranes pink and moist. LUNGS: Airway patent. No retractions. Breath sounds clear diminished bases.. HEART: Regular rate and rhythm. No chest wall tenderness ABDOMEN: Soft and non-tender, without guarding or rebound. Pelvis stable. SKIN: Acyanotic, warm, dry, without rashes EXTREMITIES: Without tenderness with 1+ bilateral lower extremity edema. Very slight tenderness to the right greater trochanter region without crepitus or significant wound/hematoma notable. NEUROLOGICAL: No focal deficits. No aphasia. No facial droop or slurred speech. Normal strength and tone in the extremities. Sensation to gross touch normal. Able to stand here. EK bpm atrially paced rhythm without PVC. No clear acute ST segment elevation or depression with a right bundle branch and left axis and QTc of 488. A bit of baseline artifact is notable. CONTINUOUS CARDIAC MONITORING: was ordered and showed a heart rate of 60s-70s bpm in atrially paced rhythm occasional PAC Patient's laboratory studies and imaging reviewed. Differential includes traumatic injury infection, dehydration, metabolic abnormality, hypo/hyperglycemia, electrolyte disturbance, anemia, hypoxia, cardiac sources, intracerebral event, toxicologic, neurologic, as well as other pathologies. IMPRESSION/MEDICAL DECISION MAKING: Patient evidently lowered himself to the ground did not suffer significant fall but was struck on the floor overnight. Not on high risk blood thinners. Denies any head, neck, or back pain. Reports a little bit soreness of the lateral right knee and right hip. Able to bear weight and stand here. Little bit of swelling in the legs but not hypoxic. Blood work here without significant anemia. Slight leukopenia. Normal platelet count. Slight hyponatremia 133 but no other severe electrolyte abnormalities other than a magnesium of 1.4. Alkaline phosphatase AST mildly elevated as is bilirubin 3.2 but not having significant abdominal pain. Question is related to his chronic alcohol use. CK not elevated not consistent with rhabdomyolysis and I doubt compartment syndrome. X-rays of the chest and hips and pelvis without obvious fracture or pneumothorax. There is question per report of some right pleural effusion and not excluded right infiltrate but is not having other respiratory symptoms or leukocytosis and I doubt pneumonia. Again not having significant pain here and I doubt internal bleeding. Troponin is normal. BNP minimally elevated 152 and I doubt significant fluid overload. Again given lack of neurological symptoms, pain, or trauma do not believe we need head imaging at this time or cervical spine or chest abdomen pelvis imaging. Updated patient with generally reassuring findings. This is now providing a urine sample. IV magnesium for replacement ordered. Discussed with patient and his 2 daughters who arrived. Seems like every year he in the winter does need rehab. Has done well with [facility] and PT before. Discussed with him as it is actually the second day that he has had to lower himself to the floor and spent double digit number of hours on the floor, strongly discussed with him staying for placement purposes for short-term rehab and possibly [facility]. Daughter is very supportive at this idea. Patient has been inconsistent with his medications at home particularly his evening medications that may be contributing. Patient was agreeable with this plan for rehab. Did have home health care case manager investigate possible placement from the ER. Doing be careful avoid fluid overload and avoid IV fluids at this time. [facility] does not have beds tonight and will admit to the hospitalist team with hopes for placement tomorrow. DIAGNOSIS: Weakness, right hip discomfort DISPOSITION: Hospitalist will evaluate Patient was agreeable with this plan. Past Med/Surg History Problem List (Updated 04/17/24 @ 17:34 by Storm Cho M.D.) Acute pain of right hip (Acute) Weakness (Acute) Alcohol abuse by father Alcohol abuse by report; pt denies either drinking to excess or ever abstaining Social isolation Advanced care planning/counseling discussion Palliative care by specialist Heart failure with preserved ejection fraction Depression by history potentially major depression, but pt can't provide sufficient data to establish an etiology Non compliance w medication regimen Bilateral lower extremity edema Dyspnea and respiratory abnormalities Brandon second degree AV block Acute on chronic diastolic heart failure with preserved ejection fraction Acute CHF Bilateral cellulitis of lower leg (Acute) Pulmonary edema (Acute) Hypervolemia (Acute) Medical History Hypertension CHF (congestive heart failure) Social History Smoking Status: Former smoker Hx Alcohol Use: Yes Alcohol type: beer Hx Substance Use: No Preferred Language: Lao Communication Ability: Effective Authorizer Required: No Beliefs That Will Affect Care: None Current Living Situation: Alone Feels Safe at Home: Yes Assistive Devices: Walker Allergies Allergies Allergy/AdvReac Type Severity Reaction Status Date / Time No Known Allergies Allergy Unverified 03/07/23 21:07 Home Meds Home Medications Medication Instructions Recorded Confirmed furosemide 40 mg tablet 40 mg PO BID 09/07/20 04/17/24 baclofen 10 mg tablet 5 mg PO TID 03/07/23 04/17/24 folic acid 1 mg tablet 1 mg PO QAM 03/07/23 04/17/24 metformin 500 mg tablet 500 mg PO QAM 03/07/23 04/17/24 escitalopram oxalate 10 mg tablet 10 mg PO DAILY 04/17/24 04/17/24 quetiapine 25 mg tablet 25 mg PO HS 04/17/24 04/17/24 Previous Rx's Medication Instructions Recorded acetaminophen 325 mg tablet 650 mg (2 x 325 mg) PO Q4H PRN 03/18/23 pain #30 tabs losartan 25 mg tablet 25 mg PO DAILY #30 tabs 03/18/23 Results & Data (ED) Vital Signs Vital Signs - 24 hr 04/17/24 14:31 04/17/24 15:11 04/17/24 16:27 Temperature 36.4 C L Temperature Source Axillary Pulse Rate 78 85 Pulse Rate [Finger] 67 Pulse Rhythm Regular Pulse Strength Normal Respiratory Rate 18 22 Respiratory Effort / Characteristics Non-Labored Spontaneous Respiratory Depth Normal Respiratory Pattern Regular Blood Pressure 160/70 H Blood Pressure [Right Arm] 144/72 H Blood Pressure Mean 100 Blood Pressure Mean [Right Arm] 96 Blood Pressure Position Sitting Pulse Oximetry 97 97 Oxygen Delivery Method Room Air Room Air Sepsis Recent Fever Within 48 Hours No Sepsis New/Unexplained Change in Mental Status N/A Sepsis Action Taken by Nursing No Action Required 04/17/24 17:00 Temperature Temperature Source Pulse Rate Pulse Rate [Finger] 99 H Pulse Rhythm Pulse Strength Respiratory Rate 18 Respiratory Effort / Characteristics Respiratory Depth Respiratory Pattern Blood Pressure Blood Pressure [Right Arm] 142/54 H Blood Pressure Mean Blood Pressure Mean [Right Arm] 83 Blood Pressure Position Pulse Oximetry 97 Oxygen Delivery Method Room Air Sepsis Recent Fever Within 48 Hours Sepsis New/Unexplained Change in Mental Status Sepsis Action Taken by Nursing Laboratory Data 04/17/24 14:49 04/17/24 14:49 Lab Results 04/17/24 04/17/24 04/17/24 Range/Units 14:49 14:58 16:39 WBC 3.96 L (4.8-10.8) K/ul RBC 4.79 (4.70-6.10) M/uL Hgb 16.4 (14.0-18.0) g/dl POC Hgb 17.0 (14.0-18.0) g/dl Hct 46.9 (42.0-52.0) % POC Hct 50 (42-52) % MCV 97.9 (80.0-100.0) fL MCH 34.2 H (25.0-34.0) pg MCHC 35.0 (32.0-36.0) g/dL RDW Std Deviation 45.1 (36.4-46.3) fL RDW Coeff of Keegan 12.5 (11.5-14.5) % Plt Count 148 (130-400) K/uL MPV 9.7 (9.4-12.4) fL Immature Gran % (Auto) 1.8 % Neut % (Auto) 66.7 % Lymph % (Auto) 18.9 % [place] % (Auto) 10.1 % Eos % (Auto) 2.0 % Baso % (Auto) 0.5 % Neut # (Auto) 2.64 (1.40-6.50) K/uL Lymph # (Auto) 0.75 L (1.20-3.40) K/uL [place] # (Auto) 0.40 (0.11-0.59) K/uL Eos # (Auto) 0.08 (0.00-0.50) K/uL Baso # (Auto) 0.02 (0.00-0.20) K/uL Immature Gran # (Auto) 0.07 (0.01-0.20) K/uL PT 12.7 H (9.0-12.0) Seconds INR 1.2 H (0.9-1.1) POC Sodium 133 L (135-144) mmol/L Sodium 133 L (136-145) mmol/L POC Potassium 3.8 (3.3-5.0) mmol/L Potassium 3.9 (3.5-5.1) mmol/L POC Chloride 91 L (101-112) mmol/L Chloride 91 L (98-107) mmol/L Carbon Dioxide 32 (21-32) mmol/L POC Total CO2 28 (24-31) mmol/L Anion Gap 10 (3-11) POC Anion Gap 20.0 (16-25) mmol/L POC BUN 10 (7-18) mg/dl BUN 12 (6-23) mg/dl Creatinine 0.79 (0.6-1.4) mg/dl POC Creatinine 0.7 (0.6-1.3) mg/dl Est Cr Clr Drug Dosing 90.0 ml/min eGFR 85.45 BUN/Creatinine Ratio 15.2 (10-20) Glucose 104 H (70-99(Fasting)) mg/dl POC Glucose (other) 104 H (70-99) mg/dl Calcium 9.0 (8.6-10.3) mg/dl POC Ioniz Calcium [place] 1.04 L (1.12-1.32) mmol/l Magnesium 1.4 L (1.7-2.4) mg/dl Total Bilirubin 3.2 H (0.2-1.0) mg/dl AST 85 H (13-39) U/L ALT 35 (7-52) U/L Alkaline Phosphatase 260 H (34-104) U/L Total Creatine Kinase 150 (30-223) U/L Troponin I High Sens 8.7 (0-20) pg/ml B-Natriuretic Peptide 152 H (0-100) pg/ml Total Protein 7.6 (6.0-8.3) gm/dl Albumin 3.6 (3.4-5.0) gm/dl Globulin 4.0 (2.5-4.0) gm/dl Albumin/Globulin Ratio 0.9 (0.9-2) TSH 3.829 (0.300-4.500) uIu/ml Urine Color Lyn[place]sey Urine Appearance Clear (Clear) Urine pH 5.0 (4.5-7.5) Ur Specific [place] 1.025 (1.000-1.030) Urine Protein Trace H (Negative) Urine Glucose (UA) Negative (Negative) Urine Ketones 1+ H (Negative) Urine Blood Negative (Negative) Urine Nitrite Positive A (Negative) Urine Bilirubin 2+ H (Negative) Urine Urobilinogen Positive H (Negative) Ur Leukocyte Esterase Negative (Negative) Urine RBC 0-2 (0-2) /hpf Urine WBC 6-10 H (0-5) /hpf Ur Epithelial Cells 11-20 H (0-2) /hpf Urine Bacteria 1+ H (None Seen) Hyaline Casts Present A (None Presnt) /lpf Urine Mucus Present A (None Prsent) Administered Medications Discontinued Medications Magnesium Sulfate/Dextrose (Magnesium Sulfate / D5w) 1 gm in 100 mls @ 200 mls/hr IV Q30M [facility] Stop: 04/17/24 16:39 Last Infusion: 04/17/24 16:59 Dose: Infused Documented By: Admin: 04/17/24 16:24 Dose: 200 mls/hr Documented By: Infusion: 04/17/24 16:17 Dose: Infused Documented By: Admin: 04/17/24 15:47 Dose: 200 mls/hr Documented By: JOSSE Imaging Data Radiologist's Impression: Chest X-Ray 04/17/24 14:44 XR chest 1V portable CLINICAL HISTORY: stuck on floor ground-level fall COMPARISON STUDY: 03/16/2023 FINDINGS: There is right basilar lung opacity which is primarily a pleural effusion with associated compressive atelectasis. Cannot exclude a right basilar infiltrate. Cardiomegaly and pulmonary vascular congestion are present. No rib fractures appreciated. Dual-lead pacemaker in place. IMPRESSION: Right pleural effusion with right basilar compressive atelectasis. Right lower lobe infiltrate not excluded. ACT 112: Negative or not required by law. Electronically signed by: Brandy Andrade M.D. 04/17/2024 3:28 PM Hip/Pelvis X-Ray 04/17/24 14:44 XR hip RT 2V w pelvis CLINICAL HISTORY: stuck on floor, right hip sore COMPARISON: None FINDINGS: Sacroiliac joints and symphysis pubis are intact. There are no fractures within the pelvis or hips. Exam is mildly compromised given suboptimal penetration. There is mild bilateral hip osteophytosis. No osseous lesions are identified. IMPRESSION: No fractures within the pelvis or hips. ACT 112: Negative or not required by law. Electronically signed by: Heladio Cash M.D. 04/17/2024 3:20 PM Discharge Plan Visit Data Chief Complaint: Fall ED Provider: Storm Cho Discharge Problem: Weakness, Acute pain of right hip Forms Stand Alone Forms: [facility] Prescriptions Prescriptions: No Action baclofen 10 mg tablet 5 mg PO TID metformin 500 mg tablet 500 mg PO QAM folic acid 1 mg tablet 1 mg PO QAM acetaminophen 325 mg Tablet 650 mg PO Q4H PRN (Reason: pain) Qty: 30 0RF losartan 25 mg tablet 25 mg PO DAILY Qty: 30 0RF furosemide 40 mg tablet 40 mg PO BID Rx Instructions: morning and noon quetiapine 25 mg tablet 25 mg PO HS escitalopram oxalate 10 mg tablet 10 mg PO DAILY Referrals Referrals: Mahi Arvizu MD [Outside Practitioners] -
[2024-04-17 15:02] LABS: Basophils # (auto) 0.02 K/uL (0.00-0.20); Basophils % (auto) 0.5 %; Eosinophils # (auto) 0.08 K/uL (0.00-0.50); Hematocrit (blood only) 46.9 % (42.0-52.0); Hemoglobin 16.4 g/dl (14.0-18.0); Immature Granulocytes # (auto) 0.07 K/uL (0.01-0.20); Immature Granulocytes % (auto) 1.8 %; Lymphocytes # (auto) 0.75 K/uL (1.20-3.40); Lymphocytes % (auto) 18.9 %; Mean Corpuscular Hemoglobin 34.2 pg (25.0-34.0); Mean Corpuscular Volume 97.9 fL (80.0-100.0); Mean Platelet Volume 9.7 fL (9.4-12.4); Monocytes % (auto) 10.1 %; Neutrophils # (auto) 2.64 K/uL (1.40-6.50); Neutrophils % (auto) 66.7 %; Platelet Count 148 K/uL (130-400); RDW Coefficient of Variation 12.5 % (11.5-14.5); RDW Standard Deviation 45.1 fL (36.4-46.3); Red Blood Count 4.79 M/uL (4.70-6.10); White Blood Count 3.96 K/ul (4.8-10.8)
[2024-04-17 15:11] LABS: iSTAT Creatinine 0.7 mg/dl (0.6-1.3); iSTAT Ionized Calcium 1.04 mmol/l (1.12-1.32); iSTAT Potassium 3.8 mmol/L (3.3-5.0)
[2024-04-17 15:21] LABS: INR 1.2 (0.9-1.1); Prothrombin Time 12.7 Seconds (9.0-12.0)
--- NOTE | 2024-04-17 15:23 | XRay Report ---
XR hip RT 2V w pelvis CLINICAL HISTORY: stuck on floor, right hip sore COMPARISON: None FINDINGS: Sacroiliac joints and symphysis pubis are intact. There are no fractures within the pelvis or hips. Exam is mildly compromised given suboptimal penetration. There is mild bilateral hip osteop hytosis. No osseous lesions are identified. IMPRESSION: No fractures within the pelvis or hips. ACT 112: Negative or not required by law. Electronically signed by: Heladio Cash M.D. 04/17/2024 3:20 PM
[2024-04-17 15:28] LABS: Albumin Globulin Ratio 0.9 (0.9-2); Albumin Level 3.6 gm/dl (3.4-5.0); BUN Creatinine Ratio 15.2 (10-20); Bilirubin,Total 3.2 mg/dl (0.2-1.0); Magnesium 1.4 mg/dl (1.7-2.4); Potassium 3.9 mmol/L (3.5-5.1); Total Protein 7.6 gm/dl (6.0-8.3)
--- NOTE | 2024-04-17 15:29 | XRay Report ---
XR chest 1V portable CLINICAL HISTORY: stuck on floor ground-level fall COMPARISON STUDY: 03/16/2023 FINDINGS: There is right basilar lung opacity which is primarily a pleural effusion with associated c ompressive atelectasis. Cannot exclude a right basilar infiltrate. Cardiomegaly and pulmonary vascula r congestion are present. No rib fractures appreciated. Dual-lead pacemaker in place. IMPRESSION: Right pleural effusion with right basilar compressive atelectasis. Right lower lobe infi ltrate not excluded. ACT 112: Negative or not required by law. Electronically signed by: Brandy Andrade M.D. 04/17/2024 3:28 PM
[2024-04-17 15:33] LABS: Troponin I High Sensitivity 8.7 pg/ml (0-20)
[2024-04-17 15:42] LABS: Thyroid Stimulating Hormone 3.829 uIu/ml (0.300-4.500)
[2024-04-17] MEDS: MAGNESIUM SULFATE / D5W 1 GM/100 ML BAG IV SCH (15:47)
--- NOTE | 2024-04-17 17:05 | History & Physical Report ---
<Statement entered by Espinoza Valentin, DO - 04/18/24 10:40> I have seen and examined the patient and have discussed the case with the advance practice provider on the date of admission. I have reviewed the advanced practitioner's documentation, and I agree with, and take responsibility for that plan of care. Patient again with me was very clear that he did not fall it is significant weakness and poor mobility that prompted him to seek attention in the ED. Unable to really get himself in and out of his chair to transition with much success. Further plan of care as outlined below I spent a total of 14 minutes coordinating, documenting, and providing care for this patient excluding time spent by another provider/QHP. Date of Service April 17, 2024 Assessment & Plan (1) Generalized weakness: (2) Ambulatory dysfunction: (3) Unable to care for self: Plan: This is an 88-year-old male with PMH of HFpEF (EF: 55-60% in Feb 2023), AV block s/p pacemaker placement, HTN, DM II, mood disorder, morbid obesity, ambulatory dysfunction and other medical problems listed below who presents with generalized weakness. Attempted transfer from rolling desk chair to walker the past two nights and lowered self to ground 2/2 weakness, down 10+ hours, denies head trauma Hip/pelvis XR with no fractures within the pelvis or hips Afebrile, CK within normal limits, BNP 152. Liver enzymes slightly elevated- AST 85, tbili 3.2, ALT wnl, alk phos 260 CM in ED considered discharge to [facility] for short term rehab this evening but no beds available. 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 Right lower lobe infiltrate not excluded Feb 2023 echo with mild concentric LVH. Left ventricle wall motion is normal. EF 55 to 60%. Pulmonary artery systolic pressure is estimated to be 41 mmHg Will give 40mg IV Lasix tonight, reassess in AM whether add'l IV diuresis is needed. 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 Valentin. Please see addendum. I spent a total of 75 minutes coordinating, documenting, and providing care for this patient excluding time spent in the performance of separately billed services or time spent by another provider/QHP. History of Present Illness Chief Complaint: ambulatory dysfunction, down overnight Primary Care Provider: Mile Geronimo PA-C This is an 88-year-old male with PMH of HFpEF (EF: 55-60% in Feb 2023), AV block s/p pacemaker placement, HTN, DM II, mood disorder, morbid obestiy, ambulatory dysfunction and other medical problems listed below who presents with generalized weakness. Patient ambulates with a walker but generally uses his rolling desk chair to scoot to a wall or the kitchen sink to pull up on it in an effort to get to his walker. 2 nights ago, patient attempted this in the kitchen and found himself on the ground unable to get up overnight. Daughter arrived in the morning was able to help him. Last night, attempted to transfer off of rolling chair in his bedroom and found himself on the ground. Was down overnight and able to contact his daughter using his Rosie and was brought in by EMS. Patient denies any lightheadedness, chest pain or palpitations preceding t hese events. Does not feel significantly more weak than baseline. Has some hip discomfort but it has improved since he arrived to the hospital. Has his daughter living upstairs in the same home who helps manage his medications. No fever, chills, lightheadedness, chest pain, shortness of breath, nausea, vomiting, abdominal pain, dysuria, diarrhea constipation. Missed 2 doses of lasix as a result of time down- last took last night. Does not feel legs looks more swollen than baseline. Per conversation with daughter Marci, patient has been progressively more confused over the past month or so. Significant medication noncompliance. Allergies Allergy/AdvReac Type Severity Reaction Status Date / Time No Known Allergies Allergy Unverified 03/07/23 21:07 Home Medications Medication Instructions Recorded Confirmed Type furosemide 40 mg tablet 40 mg PO BID 09/07/20 04/17/24 History baclofen 10 mg tablet 5 mg PO TID 03/07/23 04/17/24 History folic acid 1 mg tablet 1 mg PO QAM 03/07/23 04/17/24 History metformin 500 mg tablet 500 mg PO QAM 03/07/23 04/17/24 History acetaminophen 325 mg tablet 650 mg (2 x 325 mg) PO Q4H PRN 03/18/23 04/17/24 Rx pain #30 tabs losartan 25 mg tablet 25 mg PO DAILY #30 tabs 03/18/23 04/17/24 Rx escitalopram oxalate 10 mg tablet 10 mg PO DAILY 04/17/24 04/17/24 History quetiapine 25 mg tablet 25 mg PO HS 04/17/24 04/17/24 History vitamin B complex 1 tab PO DAILY 04/17/24 04/17/24 History Past Med/Surg History Problem List (Updated 04/17/24 @ 21:41 by Jeny An PA-C) Abnormal LFTs Ambulatory dysfunction Generalized weakness Hypomagnesemia Unable to care for self Acute decompensated heart failure Acute pain of right hip (Acute) Non compliance w medication regimen Acute on chronic diastolic heart failure with preserved ejection fraction Medical History (Updated 04/17/24 @ 21:41 by Jeny An PA-C) DM (diabetes mellitus), type 2 Alcohol use disorder Pacemaker Wenckebach second degree AV block Alcohol abuse by father Alcohol abuse by report; pt denies either drinking to excess or ever abstaining Social isolation Advanced care planning/counseling discussion Palliative care by specialist Heart failure with preserved ejection fraction Depression by history potentially major depression, but pt can't provide sufficient data to establish an etiology Osteoarthritis of left knee Hypertension CHF (congestive heart failure) Family History Other Heart disease Social History Smoking Status: Former smoker Hx Alcohol Use: Yes Alcohol type: beer Hx Substance Use: No Preferred Language: German Communication Ability: Effective Certified Nurse Aide Required: No Beliefs That Will Affect Care: None Current Living Situation: Alone Feels Safe at Home: Yes Assistive Devices: Walker Review of Systems Review of Systems: At least ten systems reviewed and negative except as noted in the HPI. Physical Exam Physical Exam: General Appearance: WD/WN, vitals as above, NAD, appears chronically ill Head: normocephalic, atraumatic Eyes: normal inspection, PERRL, trace bilateral scleral injection ENT: external ear and nose normal, oropharynx dry Neck: normal visual inspection Respiratory: normal respiratory effort, lungs diminished, bibasilar rales, no wheeze, rales, rhonchi. No accessory muscle use Cardiovascular: regular rate, rhythm, normal peripheral pulses, 1+ BLE edema. Vessels: difficult to assess JVD 2/2 habitus Chest: normal inspection of chest Abdomen/GI: normal bowel sounds, protuberant but soft, nontender, no hepatosplenomegaly Extremities/Musculoskeletal: no cyanosis or clubbing, extremities motor strength 5/5, + BLE venous stasis changes noted anteriorly Neurologic: PERRL, EOMI, accommodation nl, no face palsy, no dysarthria, CN's II-XI intact bilaterally and moves all extremities Psychiatric: A+Ox3, poor insight Skin: no rashes, normal color, warm/dry Results & Data Results & Data Vital Signs (Past 12 Hours) Vital Signs Temp Pulse Pulse Resp BP BP Pulse Ox 04/17/24 16:27 67 22 144/72 H 97 04/17/24 15:11 85 04/17/24 14:31 36.4 C L 78 18 160/70 H 97 O2 Del Method 04/17/24 16:27 Room Air 04/17/24 15:11 04/17/24 14:31 Room Air Laboratory Results Short CBC 04/17/24 Range/Units 14:49 WBC 3.96 L (4.8-10.8) K/ul Hgb 16.4 (14.0-18.0) g/dl Hct 46.9 (42.0-52.0) % Plt Count 148 (130-400) K/uL BMP 04/17/24 14:49 Sodium 133 L Potassium 3.9 Chloride 91 L Carbon Dioxide 32 BUN 12 Creatinine 0.79 Glucose 104 H Calcium 9.0 Cardiac Enzymes 04/17/24 Range/Units 14:49 Total Creatine Kinase 150 (30-223) U/L Liver Function 04/17/24 Range/Units 14:49 Total Bilirubin 3.2 H (0.2-1.0) mg/dl AST 85 H (13-39) U/L ALT 35 (7-52) U/L Alkaline Phosphatase 260 H (34-104) U/L Albumin 3.6 (3.4-5.0) gm/dl Urine 04/17/24 Range/Units 16:39 Urine Color [place] Urine Appearance Clear (Clear) Urine pH 5.0 (4.5-7.5) Ur Specific [place] 1.025 (1.000-1.030) Urine Protein Trace H (Negative) Urine Glucose (UA) Negative (Negative) Diagnostic Findings Chest X-Ray 04/17/24 14:44 XR chest 1V portable CLINICAL HISTORY: stuck on floor ground-level fall COMPARISON STUDY: 03/16/2023 FINDINGS: There is right basilar lung opacity which is primarily a pleural effusion with associated compressive atelectasis. Cannot exclude a right basilar infiltrate. Cardiomegaly and pulmonary vascular congestion are present. No rib fractures appreciated. Dual-lead pacemaker in place. IMPRESSION: Right pleural effusion with right basilar compressive atelectasis. Right lower lobe infiltrate not excluded. ACT 112: Negative or not required by law. Electronically signed by: Brandy Andrade M.D. 04/17/2024 3:28 PM Hip/Pelvis X-Ray 04/17/24 14:44 XR hip RT 2V w pelvis CLINICAL HISTORY: stuck on floor, right hip sore COMPARISON: None FINDINGS: Sacroiliac joints and symphysis pubis are intact. There are no fractures within the pelvis or hips. Exam is mildly compromised given suboptimal penetration. There is mild bilateral hip osteophytosis. No osseous lesions are identified. IMPRESSION: No fractures within the pelvis or hips. ACT 112: Negative or not required by law. Electronically signed by: Heladio Cash M.D. 04/17/2024 3:20 PM ECG Additional Comments: Atrially paced rhythm at 69 bpm atrially paced rhythm without PVC. No ST elevation (9) Depression Active/Remission status: currently active Depression Type: major depressive disorder Major depression episode severity: severe Major depression recurrence: recurrent Psychotic features: without psychotic features Qualified Code(s): F33.2 - Major depressive disorder, recurrent severe without psychotic features
[2024-04-17 17:09] LABS: Appearance Urine Clear (Clear); Bilirubin Urine 2+ (Negative); Blood Urine Negative (Negative); Color Urine Amber; Glucose Urine UA Negative (Negative); Ketones Urine 1+ (Negative); Leukocyte Esterase Urine Negative (Negative); Nitrite Urine Positive (Negative); Protein Urine Trace (Negative); Specific Gravity Urine 1.025 (1.000-1.030); Urobilinogen Urine Positive (Negative)
[2024-04-17 17:15] LABS: Hyaline Casts Urine Present /lpf (None Presnt)
--- NOTE | 2024-04-17 17:15 | Electrocardiogram Report ---
Test Reason : Blood Pressure : */* mmHG Vent. Rate : 69 BPM Atrial Rate : 69 BPM P-R Int : 240 ms QRS Dur : 130 ms QT Int : 456 ms P-R-T Axes : 43 -56 -24 degrees QTcB Int : 488 ms Atrial-paced rhythm with prolonged AV conduction with occasional ventricular-paced complexes Left axis deviation Right bundle branch block Possible Lateral infarct , age undetermined Poor R wave progression, consider anterior SD vs. lead placement vs. LVH Inferior infarct , age undetermined Abnormal ECG When compared with ECG of 16-Mar-2023 19:46, No significant change was found Confirmed by Ryder Samayoa ([id number]) on 04/17/2024 5:15:15 PM Referred By: REFERRED SELF Confirmed By: Ryder Samayoa
[2024-04-17 17:16] LABS: Bacteria Urine 1+ (None Seen)
[2024-04-17 17:17] LABS: Mucus Urine Present (None Prsent); RBC Urine 0-2 /hpf (0-2)
[2024-04-17] MEDS: POTASSIUM CHLORIDE CRTAB 20 MEQ TABCR PO STA (17:52)
[2024-04-17] MEDS: FUROSEMIDE 40 MG/4 ML VIAL IV ONE (17:52)
[2024-04-17] MEDS ORDERED: GLUCOSE 40% GEL 15 GM TUBE PO PRN (21:37)
[2024-04-17] MEDS ORDERED: CARBOHYDRATES FOR HYPOGLYCEMIA PO PRN (21:37)
[2024-04-17] MEDS: INSULIN ASPART PER UNIT CHARGE SC SCH (21:37)
[2024-04-17] MEDS ORDERED: POLYETHYLENE (MIRALAX) 17 GM PACK PO PRN (21:37)
[2024-04-17] MEDS ORDERED: ACETAMINOPHEN 325 MG TAB PO PRN (21:37)
[2024-04-17] MEDS ORDERED: ONDANSETRON INJ 2 MG/ML 2 ML VIAL IV PRN (21:37)
[2024-04-17] MEDS ORDERED: DEXTROSE 50% 50 ML SYRINGE IV PRN (21:37)
[2024-04-17] MEDS ORDERED: GLUCOSE 10 TAB/TUBE PO PRN (21:37)
[2024-04-17] MEDS ORDERED: GLUCAGON FOR INJ 1 MG VIAL SQ PRN (21:37)
[2024-04-17] MEDS: QUEtiapine FUMARATE 25 MG TABLET PO SCH (22:55)
--- OUTSIDE RECORDS SUMMARY | 2024-04-17 22:57 | External Medical Summary | Summary of Care ---
Author Name Unknown Organization [facility] Address [address] [place] [address] Phone [phone] Care Team Providers Care [employer] Professional Name Role Phone Mahi Arvizu MD Primary Care Provider [phone] Reason for Referral * Evaluate & Treat - Unlimited Visits (Within 10 days (routine)) - Authorized Specialty Diagnoses / Procedures Referred By [place] koroma Referred To Contact Podiatry Diagnoses Type 2 diabetes mellitus without complication, without long-term current use of insulin (HCC) Alexa Marshall PA-C [address] [place] [id number] Referral ID Status Reason Start Date Expiration Date Visits Requested Visits Authorized [id number] Authorized Specialty Services Required 11/29/2023 999 999 Question Answer Referral Priority Within 10 days (routine) Where should this appointment be scheduled? [facility] Which condition are you referring this patient for? Diabetic foot care/pain Specific condition? Diabetic Foot care Medicare Patient? Yes Can Patient perform routine footcare without assistance? Yes - Patient may be financially responsible Does patient have a chronic condition? No Comments Type 2 DM Encounter Details Date Type Department Care Team ([facility] st Contact Info) Description 11/29/2023 Orders Only [facility], [place] [address] [place] [address] Ext *DO NOT REMOVE THIS DEPARTMENT* SRIKANTH SAM [phone] Request, External Referral Type 2 diabetes mellitus without complication, without long-term current use of insulin (HCC)* Allergies No known active allergiesdocumented as of this encounter (statuses as of 11/29/2023) Medications Medication Sig Dispensed Refills Start Date End Date Status ZOLOFT 50 MG OR TABS 1 TABLET DAILY 30 0 08/22/2002 Active ATENOLOL 25 MG OR TABS 1 TABLET DAILY 30 0 08/22/2002 Active FOLIC ACID 1 MG OR TABS 1 tablet once a day 0 08/22/2002 Active SPIRONOLACTONE 50 MG OR TABS bid 30 0 08/22/2002 Active FUROSEMIDE 40 MG OR TABS bid 30 0 08/22/2002 Active GOLYTELY 236 GM PO SOLRIndications:Perso nal history of colonic polyps as directed 1 bottle 0 07/20/2006 Active documented as of this encounter (statuses as of 11/29/2023) Social History Tobacco Use Types Packs/Day Years Used Date Smoking Tobacco: Never Alcohol Use Standard Drinks/Week Comments No 0 (1 standard drink = 0.6 oz pur e alcohol) Utilities Answer Date Recorded Do you have trouble paying y our heating, water, or electric bill? (Adult - for ages 18 years and over) Not on file 08/16/2023 Is your family able to pay t he heat, water, or electric bill? (Household - for ages 0-17 years) Not on file 08/16/2023 Does your family have access to good internet? (Household - for ages 0-17 years) Not on file 08/16/2023 Social Connections Answer Date Recorded How often do you feel lonely or isolated from those around you? (Adult - for ages 18 years and over) Not on file 08/16/2023 Sex and Gender Information Value Date Recorded Sex Assigned at Not on file Gender Identity Not on file Sexual Orientation Not on file Job Start Date Occupation Industry Not on file Not on file Not on file documented as of this encounter Plan of Treatment Scheduled Referrals Name Type Priority Associated Diagnoses Orde r Schedule PODIATRY REFERRAL OP Referral Within 10 days (routine) Type 2 diabetes mellitus without complication, without long-term current use of insulin (HCC) Ordered: 11/29/2023 Health Maintenance Due Date Last Done Comments Depression Screening 1947 DTap/Tdap Vaccines (1 - Tdap) 10/13/1954 Zoster Vaccines (1 of 2) 10/13/1985 COVID-19 Vaccine (5 - 2024-25 season) 2023 11/21/2021, 02/19/2021, 05/07/2020, Additional history exists Influenza Vaccine (FLU shot) (#1) 2023 Pneumococcal Vaccine: 65+ Years Completed 02/04/2023, 09/08/2015, 09/03/2014 HPV (Gardasil) Vaccine Aged Out No lo nger eligible based on patient's age to complete this topic Hepatitis B Vaccine Aged Out No longe r eligible based on patient's age to complete this topic MENINGOCOCCAL (MENACTRA/MENVEO) Aged Out No longer eligible based on patient's age to complete this topic documented as of this encounter Medical Devices Not on filedocumented as of this encounter Visit Diagnoses Diagnosis Type 2 diabetes mellitus without complication, without long-term current use of insulin (HCC)- Primary documented in this encounter Care Teams Auto Parts Professional Relationship Specialty Start Date End Date Mahi Arvizu MD PCP - General 08/30/06 documented as of this encounter
--- OUTSIDE RECORDS SUMMARY | 2024-04-17 22:57 | External Medical Summary | Summary of Care ---
Author Name Unknown Organization [facility] Address [address] [place] [address] Phone [phone] Care Team Providers Care Apartment Rental Agent Name Role Phone Mahi Arvizu MD Primary Care Provider [phone] Encounter Details Date Type Department Care Team (Late st Contact Info) Description 04/05/2024 Result Scan Unspecified Department Shania Woodward, DO [address] [place] [address] <No scans attached> Allergies No known active allergiesdocumented as of this encounter (statuses as of 04/05/2024) Medications ZOLOFT 50 MG OR TABS 1 TABLET DAILY 30 0 08/22/2002 Active ATENOLOL 25 MG OR TABS 1 TABLET DAILY 30 0 08/22/2002 Active FOLIC ACID 1 MG OR TABS 1 tablet once a day 0 08/22/2002 Active SPIRONOLACTONE 50 MG OR TABS bid 30 0 08/22/2002 Active FUROSEMIDE 40 MG OR TABS bid 30 0 08/22/2002 Active GOLYTELY 236 GM PO SOLRIndications :Personal history of colonic polyps as directed 1 bottle 0 07/20/2006 Active documented as of this encounter (statuses as of 04/05/2024) Social History Tobacco Use Types Packs/Day Years [...] Recorded Sex Assigned at Not on file Legal Sex Male 7:17 AM EST Gender Identity Not on file Sexual Orientation Not on file documented as of this encounter Plan of Treatment Health Maintenance Due Date Last Done Comments Depression Screening 1947 DTap/Tdap Vaccines (1 - Tdap) 10[birth year]13/1954 Zoster Vaccines (1 of 2) 10/13/1985 COVID-19 Vaccine ( - season) 2023 11/21/2021, 02/19/2021, 05/07/2020, Additional history exists Influenza Vaccine (FLU shot) (#1) 2023 Pneumococcal Vaccine: 50+ Years Completed 02/04/2023, 09/08/2015, 09/03/2014 HPV (Gardasil) [...] Not on filedocumented as of this encounter Procedures Procedure Name Priority Date/Time Associated Diagnosis Comments CARDIOLOGY SCANNED RESULT 04/05/2024 documented in this encounter Results * CARDIOLOGY SCANNED RESULT (04/05/2024) 04/05/2024 us Shania Woodward DO OTHER Final R esult documented in this encounter Care Teams Apartment Rental Agent Relationship Specialty Start Date End Date Mahi Arvizu MD PCP - General 08/30/06 documented as of this encounter
--- OUTSIDE RECORDS SUMMARY | 2024-04-17 22:57 | External Medical Summary | Summary of Care ---
Author Name Unknown Organization [facility] Address [address] [place] [address] Phone [phone] Care Team Providers Care Parts Salvager Name Role Phone Mahi Arvizu MD Primary Care Provider [phone] Encounter Details Date Type Department Care Team (Late st Contact Info) Description 02/02/2024 Result Scan Unspecified Department Shania Woodward, DO [address] [place] [address] <No scans attached> Allergies No known active allergiesdocumented as of this encounter (statuses as of 02/03/2024) Medications ZOLOFT 50 MG OR TABS 1 [...] as of this encounter (statuses as of 02/03/2024) Social History Tobacco Use Types Packs/Day Years [...] Date/Time Associated Diagnosis Comments CARDIOLOGY SCANNED RESULT 02/02/2024 documented in this encounter Results * CARDIOLOGY SCANNED RESULT (02/02/2024) 02/02/2024 us Shania Woodward DO OTHER Final R esult documented in this encounter Care Teams Parts Salvager Relationship Specialty Start Date End Date Mahi Arvizu MD PCP - General 08/30/06 documented as of this encounter
--- OUTSIDE RECORDS SUMMARY | 2024-04-17 22:57 | External Medical Summary | Summary of Care ---
Author Name Unknown Organization [facility] Address [address] [place] [address] Phone [phone] Care Team Providers Care Audio Visual Design Engineer Name Role Phone Mahi Arvizu MD Primary Care Provider [phone] Encounter Details Date Type Department Care Team (Late st Contact Info) Description 11/18/2023 Result Scan Unspecified Department Shania Woodward, DO [address] [place] [address] <No scans attached> Allergies No known active allergiesdocumented as of this encounter (statuses as of 11/18/2023) Medications Medication Sig Dispensed Refills Start Date [...] as of this encounter (statuses as of 11/18/2023) Social History Tobacco Use Types Packs/Day Years [...] Date/Time Associated Diagnosis Comments CARDIOLOGY SCANNED RESULT 11/18/2023 documented in this encounter Results * CARDIOLOGY SCANNED RESULT (11/18/2023) 11/18/2023 Shania Woodward DO OTHER documented in this encounter Care Teams Audio Visual Design Engineer Relationship Specialty Start Date End Date Mahi Arvizu MD PCP - General 08/30/06 documented as of this encounter
[2024-04-18 00:55] LABS: BUN Creatinine Ratio 13.5 (10-20); Calcium 8.4 mg/dl (8.6-10.3); Creatinine Clr Calc Pharmacy 74.1 ml/min; Magnesium 1.8 mg/dl (1.7-2.4); Potassium 4.2 mmol/L (3.5-5.1)
[2024-04-18] MEDS: ENOXAPARIN INJ 40 MG/0.4 ML SYR SQ SCH (06:03)
[2024-04-18] MEDS: FUROSEMIDE 40 MG TAB PO SCH (06:37)
[2024-04-18] MEDS: VITAMIN B COMPLEX TAB PO SCH (08:06)
[2024-04-18] MEDS: LOSARTAN POTASSIUM 25 MG TAB PO SCH (08:06)
[2024-04-18] MEDS: ESCITALOPRAM OXALATE 10 MG TAB PO SCH (08:06)
[2024-04-18] MEDS: FOLIC ACID 1 MG TAB PO SCH (08:06)
[2024-04-18] MEDS: THIAMINE HCL 100 MG TAB PO SCH (08:06)
[2024-04-18] MEDS: cefTRIAXone SODIUM 2,000 MG/50 ML BAG IV SCH (08:45)
[2024-04-18 09:00] LABS: Hematocrit (blood only) 44.1 % (42.0-52.0); Hemoglobin 15.4 g/dl (14.0-18.0); Mean Corpuscular Hemoglobin 34.7 pg (25.0-34.0); Mean Corpuscular Hgb Conc 34.9 g/dL (32.0-36.0); Mean Corpuscular Volume 99.3 fL (80.0-100.0); Mean Platelet Volume 9.9 fL (9.4-12.4); Platelet Count 140 K/uL (130-400); RDW Coefficient of Variation 12.7 % (11.5-14.5); RDW Standard Deviation 46.3 fL (36.4-46.3); Red Blood Count 4.44 M/uL (4.70-6.10); White Blood Count 3.37 K/ul (4.8-10.8)
[2024-04-18 09:14] LABS: Albumin Globulin Ratio 0.9 (0.9-2); Albumin Level 3.2 gm/dl (3.4-5.0); BUN Creatinine Ratio 15.9 (10-20); Bilirubin,Total 2.7 mg/dl (0.2-1.0); Calcium 8.5 mg/dl (8.6-10.3); Creatinine Clr Calc Pharmacy 85.1 ml/min; Globulin 3.6 gm/dl (2.5-4.0); Magnesium 1.8 mg/dl (1.7-2.4); Potassium 3.8 mmol/L (3.5-5.1); Total Protein 6.8 gm/dl (6.0-8.3)
--- NOTE | 2024-04-18 10:46 | XRay Report ---
XR foot RT min 3V routine CLINICAL HISTORY: toe pain COMPARISON: None FINDINGS: 3 views of the right foot demonstrate mild to moderate osteoarthritic change at the first tarsometatarsal joint and the first metatarsophalangeal joint. There are also scattered degenerative changes throughout the midfoot. There is no soft tissue mass or radiopaque foreign body. There is a p lantar calcaneal bone spur present. There are degenerative changes noted at the ankle joint. IMPRESSION: Scattered degenerative changes as described. Otherwise negative ACT 112: Negative or not required by law. Electronically signed by: Brandy Andrade M.D. 04/18/2024 10:44 AM
--- NOTE | 2024-04-18 10:48 | XRay Report ---
XR foot LT min 3V routine CLINICAL HISTORY: toe pain COMPARISON: None FINDINGS: 4 views of the left foot Demonstrate hammertoe deformities of the second, third, and fourth toes. There is moderate osteoarthr itic change at the first tarsometatarsal joint and first metatarsophalangeal joint. There is also jerrell e degenerative change and deformity at the fifth metatarsophalangeal joint possibly due to old trauma . There are scattered degenerative changes in the midfoot. Calcaneal bone spurs are noted. IMPRESSION: Hammertoe deformities and scattered arthritic change as described. ACT 112: Negative or not required by law. Electronically signed by: Brandy Andrade M.D. 04/18/2024 10:47 AM
[2024-04-18 11:35] LABS: Estimated Average Glucose 100 mg/dl; Hemoglobin A1C 5.1 % (4.5-5.6)
--- NOTE | 2024-04-18 12:13 | Hospitalist Progress Note ---
Date of Service April 18, 2024 Assessment & Plan (1) Generalized weakness: Plan 88-year-old male with PMH of HFpEF (EF: 55-60% in Feb 2023), AV block s/p pacemaker placement, HTN, DM II, mood disorder, morbid obesity, ambulatory dysfunction and other medical problems listed below who presents with generalized weakness. 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 On scheduled baclofen for remote back pain - will hold for now as it could be contributing to weakness Fall precautions . PT/OT Acute on chronic diastolic heart failure with preserved ejection fraction: Non compliance w medication regimen: Missed at least 2 doses of lasix this week when down, daughter endorsing med- noncompliance at baseline Clinically appeared volume overloaded at presentation. CXR right pleural effusion with right basilar compressive atelectasis. Feb 2023 echo with mild concentric LVH. Left ventricle wall motion is normal. EF 55 to 60%. Pulmonary artery systolic pressure is estimated to be 41 mmHg Home regimen is 40mg PO Lasix BID. c/w lasix 40 mg iv bid. Low sodium diet, I&Os, daily weights. F/u w/ cardio in 2-4 weeks on dc. Acute UTI: Start rocephin 04/18, f/u urine c/s. LLE cellulitis: Lt foot erythematous, tender and warm to touch 04/18 bedside exam - pt reported increasing erythema. Will c/w rocephin for now, follow clinically. XR foot reviewed. Hypomagnesemia: Resolved. Monitor and replete. Acute pain of right hip: Improved since presentation. No evidence of fracture on x-ray. Tylenol as needed. Other chronic medical conditions: Continue with/resume home meds as when able. Pacemaker: Status post pacemaker placement February 2023. Depression: Continue home citalopram, quetiapine at bedtime Hypertension: Continue home losartan. T2DM: Hold metformin, continue with sliding scale. Abnormal LFT: Suspect elevation in the setting of long-term alcohol use. No GI symptoms or abdominal pain. Trend LFT in AM. Alcohol use disorder: No signs of withdrawal, continue with thiamine and folic acid. DVT prophylaxis: Lovenox subcu CODE STATUS: DNR/DNI Admission and Anticipated Discharge Date Admission Date: April 17, 2024 Subjective Patient was seen and examined at bedside. Patient was lying in bed, on room air, NAD, resting comfortably. Patient reports left foot pain. There is increasing erythema and swelling today per patient. Patient reports eating okay and moving bowels okay, denies any other new complaints overnight. Physical Exam Physical Exam: General Appearance: WD/WN, NAD, appears chronically ill Head: normocephalic, atraumatic Eyes: normal inspection, PERRL ENT: external ear and nose normal, oropharynx moist Neck: normal visual inspection Respiratory: normal respiratory effort, lungs diminished, bibasilar rales, no wheeze, rales, rhonchi. No accessory muscle use Cardiovascular: regular rate, rhythm, normal peripheral pulses, 1-2+ BLE edema. Chest: normal inspection of chest Abdomen/GI: normal bowel sounds, protuberant but soft, nontender, no hepatosplenomegaly Extremities/Musculoskeletal: no cyanosis or clubbing, extremities motor strength 5/5, + BLE venous stasis changes noted anteriorly. Lt foot erythema/warmth noted > Rt foot. No open wound noted. Neurologic: PERRL, EOMI, accommodation nl, no face palsy, no dysarthria, CN's II-XI intact bilaterally and moves all extremities Psychiatric: A+Ox3, poor insight Results & Data Results & Data Vital Signs (Past 12 Hours) Vital Signs Temp Pulse Pulse Resp BP BP Pulse Ox 04/18/24 11:53 37 C 74 18 134/81 93 04/18/24 09:27 65 04/18/24 07:47 36.3 C L 69 18 172/75 H 96 04/18/24 07:38 04/18/24 02:42 36.5 C 71 18 137/76 96 O2 Del Method 04/18/24 11:53 Room Air 04/18/24 09:27 04/18/24 07:47 Room Air 04/18/24 07:38 Room Air 04/18/24 02:42 Room Air
[2024-04-18] MEDS: FUROSEMIDE 40 MG/4 ML VIAL IV SCH (16:18)
[2024-04-19 07:53] LABS: Hematocrit (blood only) 40.2 % (42.0-52.0); Hemoglobin 13.9 g/dl (14.0-18.0); Mean Corpuscular Hemoglobin 34.5 pg (25.0-34.0); Mean Corpuscular Hgb Conc 34.6 g/dL (32.0-36.0); Mean Corpuscular Volume 99.8 fL (80.0-100.0); Mean Platelet Volume 9.7 fL (9.4-12.4); Platelet Count 126 K/uL (130-400); RDW Coefficient of Variation 12.6 % (11.5-14.5); RDW Standard Deviation 46.3 fL (36.4-46.3); Red Blood Count 4.03 M/uL (4.70-6.10); White Blood Count 2.93 K/ul (4.8-10.8)
[2024-04-19 08:26] LABS: BUN Creatinine Ratio 22.7 (10-20); Calcium 8.4 mg/dl (8.6-10.3); Creatinine Clr Calc Pharmacy 92.1 ml/min; Magnesium 1.7 mg/dl (1.7-2.4); Potassium 3.5 mmol/L (3.5-5.1)
--- NOTE | 2024-04-19 14:47 | Hospitalist Progress Note ---
Date of Service April 19, 2024 Assessment & Plan (1) Generalized weakness: Plan 88-year-old male with PMH of HFpEF (EF: 55-60% in Feb 2023), AV block s/p pacemaker placement, HTN, DM II, mood disorder, morbid obesity, ambulatory dysfunction and other medical problems listed below who presents with generalized weakness. 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 On scheduled baclofen for remote back pain - will hold for now as it could be contributing to weakness Fall precautions . PT/OT Acute on chronic diastolic heart failure with preserved ejection fraction: Non compliance w medication regimen: Missed at least 2 doses of lasix this week when down, daughter endorsing med- noncompliance at baseline Clinically appeared volume overloaded at presentation. CXR right pleural effusion with right basilar compressive atelectasis. Feb 2023 echo with mild concentric LVH. Left ventricle wall motion is normal. EF 55 to 60%. Pulmonary artery systolic pressure is estimated to be 41 mmHg Home regimen is 40mg PO Lasix BID. c/w lasix 40 mg iv bid. Likely transition to home dose from [facility]. Low sodium diet, I&Os, daily weights. F/u w/ cardio in 2-4 weeks on dc. Acute UTI: Start rocephin 04/18, f/u urine c/s - contaminant. LLE cellulitis: Lt foot erythematous, tender and warm to touch 04/18 bedside exam - now improving erythema/warmth. Non tender today. Will c/w rocephin for now, to PO atb after brian. XR foot reviewed. Hypomagnesemia: Resolved. Monitor and replete. Acute pain of right hip: Improved since presentation. No evidence of fracture on x-ray. Tylenol as needed. Other chronic medical conditions: Continue with/resume home meds as when able. Pacemaker: Status post pacemaker placement February 2023. Depression: Continue home citalopram, quetiapine at bedtime Hypertension: Continue home losartan. T2DM: Hold metformin, continue with sliding scale. Abnormal LFT: Suspect elevation in the setting of long-term alcohol use. No GI symptoms or abdominal pain. Trend LFT in AM. Alcohol use disorder: No signs of withdrawal, continue with thiamine and folic acid. DVT prophylaxis: Lovenox subcu CODE STATUS: DNR/DNI Likely dc brian to rehab, pt/ot. Admission and Anticipated Discharge Date Admission Date: April 18, 2024 Subjective Patient was seen and examined at bedside. Patient was lying in bed, on room air, NAD, resting comfortably. Patient reports improvement of left foot pain. Noted improvement in erythema and swelling today. Patient reports eating okay and moving bowels okay, denies any other new complaints overnight. Physical Exam Physical Exam: General Appearance: WD/WN, NAD, appears chronically ill Head: normocephalic, atraumatic Eyes: normal inspection, PERRL ENT: external ear and nose normal, oropharynx moist Neck: normal visual inspection Respiratory: normal respiratory effort, lungs diminished, bibasilar rales, no wheeze, rales, rhonchi. No accessory muscle use Cardiovascular: regular rate, rhythm, normal peripheral pulses, 1-2+ BLE edema. Chest: normal inspection of chest Abdomen/GI: normal bowel sounds, protuberant but soft, nontender, no hepatosplenomegaly Extremities/Musculoskeletal: no cyanosis or clubbing, extremities motor strength 5/5, + BLE venous stasis changes noted anteriorly. Lt foot erythema/warmth noted > Rt foot --> improving today. Neurologic: PERRL, EOMI, accommodation nl, no face palsy, no dysarthria, CN's II-XI intact bilaterally and moves all extremities Psychiatric: A+Ox3, poor insight Results & Data Results & Data Vital Signs (Past 12 Hours) Vital Signs Temp Pulse Pulse Resp BP BP Pulse Ox 04/19/24 11:43 36.8 C 68 18 138/78 90 04/19/24 10:59 04/19/24 08:00 71 04/19/24 07:39 36.8 C 64 15 157/78 H 94 O2 Del Method 04/19/24 11:43 Room Air 04/19/24 10:59 Room Air 04/19/24 08:00 04/19/24 07:39 Room Air
[2024-04-19] MEDS: MAGNESIUM SULFATE / D5W 1 GM/100 ML BAG IV ONE (16:28)
[2024-04-19] MEDS: POTASSIUM CHLORIDE CRTAB 20 MEQ TABCR PO STA (16:28)
[2024-04-20 06:31] LABS: Hematocrit (blood only) 39.3 % (42.0-52.0); Hemoglobin 13.6 g/dl (14.0-18.0); Mean Corpuscular Hemoglobin 34.8 pg (25.0-34.0); Mean Corpuscular Hgb Conc 34.6 g/dL (32.0-36.0); Mean Corpuscular Volume 100.5 fL (80.0-100.0); Mean Platelet Volume 10.1 fL (9.4-12.4); Platelet Count 134 K/uL (130-400); RDW Coefficient of Variation 12.4 % (11.5-14.5); RDW Standard Deviation 46.2 fL (36.4-46.3); Red Blood Count 3.91 M/uL (4.70-6.10); White Blood Count 2.84 K/ul (4.8-10.8)
[2024-04-20 06:43] LABS: BUN Creatinine Ratio 21.5 (10-20); Calcium 8.3 mg/dl (8.6-10.3); Creatinine Clr Calc Pharmacy 88.2 ml/min; Magnesium 1.9 mg/dl (1.7-2.4); Phosphorus 3.2 mg/dl (2.5-4.9); Potassium 3.6 mmol/L (3.5-5.1)
[2024-04-20] MEDS: POTASSIUM CHLORIDE CRTAB 20 MEQ TABCR PO STA ×2 (09:54→10:31)
--- NOTE | 2024-04-20 15:00 | Hospitalist Progress Note ---
Date of Service April 20, 2024 Assessment & Plan (1) Generalized weakness: Plan 88-year-old male with PMH of HFpEF (EF: 55-60% in Feb 2023), AV block s/p pacemaker placement, HTN, DM II, mood disorder, morbid obesity, ambulatory dysfunction and other medical problems listed below who presents with generalized weakness. 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 On scheduled baclofen for remote back pain - will hold for now as it could be contributing to weakness Fall precautions . PT/OT Acute on chronic diastolic heart failure with preserved ejection fraction: Non compliance w medication regimen: Missed at least 2 doses of lasix this week when down, daughter endorsing med- noncompliance at baseline Clinically appeared volume overloaded at presentation. CXR right pleural effusion with right basilar compressive atelectasis. Feb 2023 echo with mild concentric LVH. Left ventricle wall motion is normal. EF 55 to 60%. Pulmonary artery systolic pressure is estimated to be 41 mmHg Home regimen is 40mg PO Lasix BID, stop iv lasix, transition to home lasix from [facility]. Low sodium diet, I&Os, daily weights. F/u w/ cardio in 2-4 weeks on dc. Acute UTI: Start rocephin 04/18, f/u urine c/s - contaminant. LLE cellulitis: Lt foot erythematous, tender and warm to touch 04/18 bedside exam - now improving erythema/warmth. Non tender now. Will c/w rocephin for now, to PO atb at dc brian. XR foot reviewed. Hypomagnesemia: Resolved. Monitor and replete. Acute pain of right hip: Improved since presentation. No evidence of fracture on x-ray. Tylenol as needed. Other chronic medical conditions: Continue with/resume home meds as when able. Pacemaker: Status post pacemaker placement February 2023. Depression: Continue home citalopram, quetiapine at bedtime Hypertension: Continue home losartan. T2DM: Hold metformin, continue with sliding scale. Abnormal LFT: Suspect elevation in the setting of long-term alcohol use. No GI symptoms or abdominal pain. Trend LFT in AM. Alcohol use disorder: No signs of withdrawal, continue with thiamine and folic acid. DVT prophylaxis: Lovenox subcu CODE STATUS: DNR/DNI Likely dc brian to rehab, pt/ot. Admission and Anticipated Discharge Date Admission Date: April 18, 2024 Subjective Patient was seen and examined at bedside. Patient was lying in bed, on room air, NAD, resting comfortably. Patient reports no left foot pain. Noted improvement in erythema and swelling. Patient reports eating okay and moving bowels okay, denies any other new complaints overnight. Physical Exam Physical Exam: General Appearance: WD/WN, NAD, appears chronically ill Head: normocephalic, atraumatic Eyes: normal inspection, PERRL ENT: external ear and nose normal, oropharynx moist Neck: normal visual inspection Respiratory: normal respiratory effort, lungs diminished, bibasilar rales, no wheeze, rales, rhonchi. No accessory muscle use Cardiovascular: regular rate, rhythm, normal peripheral pulses, trace/1+ BLE edema. Chest: normal inspection of chest Abdomen/GI: normal bowel sounds, protuberant but soft, nontender, no hepatosplenomegaly Extremities/Musculoskeletal: no cyanosis or clubbing, extremities motor strength 5/5, + BLE venous stasis changes noted anteriorly. Lt foot erythema/warmth noted > Rt foot --> improved. Neurologic: PERRL, EOMI, accommodation nl, no face palsy, no dysarthria, CN's II-XI intact bilaterally and moves all extremities Psychiatric: A+Ox3, poor insight Results & Data Results & Data Vital Signs (Past 12 Hours) Vital Signs Temp Pulse Pulse Resp BP BP Pulse Ox 04/20/24 14:01 66 04/20/24 11:00 36.9 C 66 18 129/78 95 04/20/24 08:00 36.8 C 71 18 133/92 90 04/20/24 07:30 67 04/20/24 03:59 36.9 C 79 20 116/60 92 O2 Del Method 04/20/24 14:01 04/20/24 11:00 Room Air 04/20/24 08:00 Room Air 04/20/24 07:30 04/20/24 03:59 Room Air
[2024-04-21 07:34] LABS: BUN Creatinine Ratio 24.6 (10-20); Calcium 8.5 mg/dl (8.6-10.3); Creatinine Clr Calc Pharmacy 100.1 ml/min; Magnesium 1.8 mg/dl (1.7-2.4); Potassium 3.7 mmol/L (3.5-5.1)
--- NOTE | 2024-04-21 13:37 | Hospitalist Progress Note ---
Date of Service April 21, 2024 Assessment & Plan (1) Generalized weakness: Plan 88-year-old male with PMH of HFpEF (EF: 55-60% in Feb 2023), AV block s/p pacemaker placement, HTN, DM II, mood disorder, morbid obesity, ambulatory dysfunction and other medical problems listed below who presents with generalized weakness. 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 On scheduled baclofen for remote back pain - will hold for now as it could be contributing to weakness Fall precautions . PT/OT Acute on chronic diastolic heart failure with preserved ejection fraction: Non compliance w medication regimen: Missed at least 2 doses of lasix this week when down, daughter endorsing med- noncompliance at baseline Clinically appeared volume overloaded at presentation. CXR right pleural effusion with right basilar compressive atelectasis. Feb 2023 echo with mild concentric LVH. Left ventricle wall motion is normal. EF 55 to 60%. Pulmonary artery systolic pressure is estimated to be 41 mmHg Home regimen is 40mg PO Lasix BID, s/p iv lasix, c/w home lasix 04/20 pm. Low sodium diet, I&Os, daily weights. F/u w/ cardio in 2-4 weeks on dc. Acute UTI: Start rocephin 04/18, f/u urine c/s - contaminant. LLE cellulitis: Lt foot erythematous, tender and warm to touch 04/18 bedside exam - now improved erythema/warmth. Non tender now. Will c/w Rocephin for now, to PO atb at dc brian. XR foot reviewed. Hypomagnesemia: Resolved. Monitor and replete. Acute pain of right hip: Improved since presentation. No evidence of fracture on x-ray. Tylenol as needed. Other chronic medical conditions: Continue with/resume home meds as when able. Pacemaker: Status post pacemaker placement February 2023. Depression: Continue home citalopram, quetiapine at bedtime Hypertension: Continue home losartan. T2DM: Hold metformin, continue with sliding scale. Abnormal LFT: Suspect elevation in the setting of long-term alcohol use. No GI symptoms or abdominal pain. Trend LFT in AM. Alcohol use disorder: No signs of withdrawal, continue with thiamine and folic acid. DVT prophylaxis: Lovenox subcu CODE STATUS: DNR/DNI Dc brian to rehab, when placement arranged for. Admission and Anticipated Discharge Date Admission Date: April 18, 2024 Subjective Patient was seen and examined at bedside. Patient was lying in bed, on room air, NAD, resting comfortably. Patient reports eating okay and moving bowels okay, denies any other new complaints overnight. Physical Exam Physical Exam: General Appearance: WD/WN, NAD, appears chronically ill Head: normocephalic, atraumatic Eyes: normal inspection, PERRL ENT: external ear and nose normal, oropharynx moist Neck: normal visual inspection Respiratory: normal respiratory effort, lungs diminished, bibasilar rales, no wheeze, rales, rhonchi. No accessory muscle use Cardiovascular: regular rate, rhythm, normal peripheral pulses, trace BLE edema. Chest: normal inspection of chest Abdomen/GI: normal bowel sounds, protuberant but soft, nontender, no hepatosplenomegaly Extremities/Musculoskeletal: no cyanosis or clubbing, extremities motor strength 5/5, + BLE venous stasis changes noted anteriorly. Lt foot erythema/warmth noted > Rt foot --> improved. Neurologic: PERRL, EOMI, accommodation nl, no face palsy, no dysarthria, CN's II-XI intact bilaterally and moves all extremities Psychiatric: A+Ox3, poor insight Results & Data Results & Data Vital Signs (Past 12 Hours) Vital Signs Temp Pulse Pulse Resp BP BP Pulse Ox 04/21/24 11:51 36.5 C 69 18 121/72 91 04/21/24 07:47 36.9 C 65 16 131/79 95 04/21/24 07:45 04/21/24 07:00 60 04/21/24 03:51 36.3 C L 70 16 148/90 H 92 O2 Del Method 04/21/24 11:51 Room Air 04/21/24 07:47 Room Air 04/21/24 07:45 Room Air 04/21/24 07:00 04/21/24 03:51 Room Air
[2024-04-22 07:29] LABS: Calcium 8.7 mg/dl (8.6-10.3); Magnesium 1.8 mg/dl (1.7-2.4); Potassium 3.9 mmol/L (3.5-5.1)
--- NOTE | 2024-04-22 11:22 | Hospitalist Progress Note ---
Date of Service April 22, 2024 Assessment & Plan (1) Generalized weakness: Plan 88-year-old male with PMH of HFpEF (EF: 55-60% in Feb 2023), AV block s/p pacemaker placement, HTN, DM II, mood disorder, morbid obesity, ambulatory dysfunction and other medical problems listed below who presents with generalized weakness. 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 On scheduled baclofen for remote back pain - will hold for now as it could be contributing to weakness Fall precautions . PT/OT Acute on chronic diastolic heart failure with preserved ejection fraction: Non compliance w medication regimen: Missed at least 2 doses of lasix this week when down, daughter endorsing med- noncompliance at baseline Clinically appeared volume overloaded at presentation. CXR right pleural effusion with right basilar compressive atelectasis. Feb 2023 echo with mild concentric LVH. Left ventricle wall motion is normal. EF 55 to 60%. Pulmonary artery systolic pressure is estimated to be 41 mmHg Home regimen is 40mg PO Lasix BID, s/p iv lasix, c/w home lasix 04/20 pm. Low sodium diet, I&Os, daily weights. FR 1800 ml/d F/u w/ cardio in 2-4 weeks on dc. Acute UTI: rocephin 04/18, f/u urine c/s - contaminant. LLE cellulitis: Lt foot erythematous, tender and warm to touch 04/18 bedside exam - now improved erythema/warmth. Non tender now. Will c/w Rocephin for now, to PO atb at dc brian. XR foot reviewed. Hypomagnesemia: Resolved. Monitor and replete. Acute pain of right hip: Improved since presentation. No evidence of fracture on x-ray. Tylenol as needed. Other chronic medical conditions: Continue with/resume home meds as when able. Pacemaker: Status post pacemaker placement February 2023. Depression: Continue home citalopram, quetiapine at bedtime Hypertension: Continue home losartan. T2DM: Hold metformin, continue with sliding scale. Abnormal LFT: Suspect elevation in the setting of long-term alcohol use. No GI symptoms or abdominal pain. Trend LFT in AM. Alcohol use disorder: No signs of withdrawal, continue with thiamine and folic acid. DVT prophylaxis: Lovenox subcu CODE STATUS: DNR/DNI Dc brian to rehab, when placement arranged for. Admission and Anticipated Discharge Date Admission Date: April 18, 2024 Subjective Patient was seen and examined at bedside. Patient was lying in bed, on room air, NAD, resting comfortably. Patient reports eating okay and moving bowels okay, denies any other new complaints overnight. Physical Exam Physical Exam: General Appearance: WD/WN, NAD, appears chronically ill Head: normocephalic, atraumatic Eyes: normal inspection, PERRL ENT: external ear and nose normal, oropharynx moist Neck: normal visual inspection Respiratory: normal respiratory effort, lungs diminished, bibasilar rales, no wheeze, rales, rhonchi. No accessory muscle use Cardiovascular: regular rate, rhythm, normal peripheral pulses, trace BLE edema. Chest: normal inspection of chest Abdomen/GI: normal bowel sounds, protuberant but soft, nontender, no hepatosplenomegaly Extremities/Musculoskeletal: no cyanosis or clubbing, extremities motor strength 5/5, + BLE venous stasis changes noted anteriorly. Lt foot erythema/warmth noted > Rt foot --> improved. Neurologic: PERRL, EOMI, accommodation nl, no face palsy, no dysarthria, CN's II-XI intact bilaterally and moves all extremities Psychiatric: A+Ox3, poor insight Results & Data Results & Data Vital Signs (Past 12 Hours) Vital Signs Temp Pulse Pulse Resp BP BP Pulse Ox 04/22/24 08:27 04/22/24 08:04 36.6 C 61 18 147/78 H 93 04/22/24 07:13 61 04/22/24 03:28 36.7 C 64 16 148/88 H 90 04/22/24 01:13 O2 Del Method 04/22/24 08:27 Room Air 04/22/24 08:04 Room Air 04/22/24 07:13 04/22/24 03:28 Room Air 04/22/24 01:13 Room Air
[2024-04-22] MEDS ORDERED: 0.2 MICRON FILTER SET 1 EACH IV STA (11:24)
[2024-04-22] MEDS ORDERED: AMIODARONE IV BOLUS & DRIP IV STA (11:24)
[2024-04-22] MEDS ORDERED: STAT IV Infusion **Titration per Protocol STA (11:24)
[2024-04-22] MEDS: AMIODARONE / D5W 150 MG/100 ML BAG IV STA (11:29)
[2024-04-22] MEDS ORDERED: AMIODARONE / D5W 360 MG/200 ML BAG IV ONE (11:34)
[2024-04-22] MEDS ORDERED: AMIODARONE / D5W 360 MG/200 ML BAG IV SCH (17:30)
[2024-04-22] MEDS ORDERED: EUCERIN CR 120 GM JAR EXT PRN (20:05)
[2024-04-23 07:05] LABS: Albumin Globulin Ratio 0.8 (0.9-2); Albumin Level 2.9 gm/dl (3.4-5.0); BUN Creatinine Ratio 19.4 (10-20); Bilirubin,Total 1.6 mg/dl (0.2-1.0); Calcium 8.6 mg/dl (8.6-10.3); Globulin 3.5 gm/dl (2.5-4.0); Potassium 3.7 mmol/L (3.5-5.1); Total Protein 6.4 gm/dl (6.0-8.3)
[2024-04-23 07:58] VITALS: RESP 18
[2024-04-23 10:51] VITALS: BP 133/85; TEMP 97.9; O2SAT 92
--- NOTE | 2024-04-23 12:39 | Hospitalist Progress Note ---
Date of Service April 23, 2024 Assessment & Plan (1) Generalized weakness: Plan 88-year-old male with PMH of HFpEF (EF: 55-60% in Feb 2023), AV block s/p pacemaker placement, HTN, DM II, mood disorder, morbid obesity, ambulatory dysfunction and other medical problems listed below who presents with generalized weakness. 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 On scheduled baclofen for remote back pain - will hold for now as it could be contributing to weakness Fall precautions . PT/OT Acute on chronic diastolic heart failure with preserved ejection fraction: Non compliance w medication regimen: Missed at least 2 doses of lasix this week when down, daughter endorsing med- noncompliance at baseline Clinically appeared volume overloaded at presentation. CXR right pleural effusion with right basilar compressive atelectasis. Feb 2023 echo with mild concentric LVH. Left ventricle wall motion is normal. EF 55 to 60%. Pulmonary artery systolic pressure is estimated to be 41 mmHg Home regimen is 40mg PO Lasix BID, s/p iv lasix, c/w home lasix 04/20 pm. Low sodium diet, I&Os, daily weights. FR 1800 ml/d F/u w/ cardio in 2-4 weeks on dc. Acute UTI: rocephin 04/18, f/u urine c/s - contaminant. LLE cellulitis: Lt foot erythematous, tender and warm to touch 04/18 bedside exam - now improved erythema/warmth. Non tender now. Will c/w Rocephin for now, to PO atb at dc brian. XR foot reviewed. Plan 7 d atb Rx. Hypomagnesemia: Resolved. Monitor and replete. Acute pain of right hip: Improved since presentation. No evidence of fracture on x-ray. Tylenol as needed. Other chronic medical conditions: Continue with/resume home meds as when able. Pacemaker: Status post pacemaker placement February 2023. Depression: Continue home citalopram, quetiapine at bedtime Hypertension: Continue home losartan. T2DM: Hold metformin, continue with sliding scale. Abnormal LFT: Suspect elevation in the setting of long-term alcohol use. No GI symptoms or abdominal pain. Trend LFT in AM. Alcohol use disorder: No signs of withdrawal, continue with thiamine and folic acid. DVT prophylaxis: Lovenox subcu CODE STATUS: DNR/DNI Dc brian to rehab, when placement arranged for. to med surg until then Admission and Anticipated Discharge Date Admission Date: April 18, 2024 Subjective Patient was seen and examined at bedside. Patient was lying in bed, on room air, NAD, resting comfortably. Patient reports eating okay and moving bowels okay, denies any other new complaints overnight. Physical Exam Physical Exam: General Appearance: WD/WN, NAD, appears chronically ill Head: normocephalic, atraumatic Eyes: normal inspection, PERRL ENT: external ear and nose normal, oropharynx moist Neck: normal visual inspection Respiratory: normal respiratory effort, lungs diminished, bibasilar rales, no wheeze, rales, rhonchi. No accessory muscle use Cardiovascular: regular rate, rhythm, normal peripheral pulses, trace BLE edema. Chest: normal inspection of chest Abdomen/GI: normal bowel sounds, protuberant but soft, nontender, no hepatosplenomegaly Extremities/Musculoskeletal: no cyanosis or clubbing, extremities motor strength 5/5, + BLE venous stasis changes noted anteriorly. Lt foot erythema/warmth noted > Rt foot --> improved. Neurologic: PERRL, EOMI, accommodation nl, no face palsy, no dysarthria, CN's II-XI intact bilaterally and moves all extremities Psychiatric: A+Ox3, poor insight Results & Data Results & Data Vital Signs (Past 12 Hours) Vital Signs Temp Pulse Pulse Resp BP BP Pulse Ox 04/23/24 10:31 36.6 C 67 18 133/85 92 04/23/24 09:11 04/23/24 09:04 63 04/23/24 07:57 36.3 C L 70 18 110/73 94 04/23/24 05:15 36.5 C 68 20 143/80 H 96 O2 Del Method 04/23/24 10:31 Room Air 04/23/24 09:11 Room Air 04/23/24 09:04 04/23/24 07:57 Room Air 04/23/24 05:15 Room Air
[2024-04-23 13:54] VITALS: PULSE 68
--- NOTE | 2024-04-23 14:21 | Discharge Summary ---
Date of Service April 23, 2024 Admission HPI Per Admitting Provider This is an 88-year-old male with PMH of HFpEF (EF: 55-60% in Feb 2023), AV block s/p pacemaker placement, HTN, DM II, mood disorder, morbid obestiy, ambulatory dysfunction and other medical problems listed below who presents with generalized weakness. Patient ambulates with a walker but generally uses his rolling desk chair to scoot to a wall or the kitchen sink to pull up on it in an effort to get to his walker. 2 nights ago, patient attempted this in the kitchen and found himself on the ground unable to get up overnight. Daughter arrived in the morning was able to help him. Last night, attempted to transfer off of rolling chair in his bedroom and found himself on the ground. Was down overnight and able to contact his daughter using his Rosie and was brought in by EMS. Patient denies any lightheadedness, chest pain or palpitations preceding these events. Does not feel significantly more weak than baseline. Has some hip discomfort but it has improved since he arrived to the hospital. Has his daughter living upstairs in the same home who helps manage his medications. No fever, chills, lightheadedness, chest pain, shortness of breath, nausea, vomiting, abdominal pain, dysuria, diarrhea constipation. Missed 2 doses of lasix as a result of time down- last took last night. Does not feel legs looks more swollen than baseline. Per conversation with daughter Marci, patient has been progressively more confused over the past month or so. Significant medication noncompliance. Admission Exam Per Admitting Provider General Appearance: WD/WN, vitals as above, NAD, appears chronically ill Head: normocephalic, atraumatic Eyes: normal inspection, PERRL, trace bilateral scleral injection ENT: external ear and nose normal, oropharynx dry Neck: normal visual inspection Respiratory: normal respiratory effort, lungs diminished, bibasilar rales, no wheeze, rales, rhonchi. No accessory muscle use Cardiovascular: regular rate, rhythm, normal peripheral pulses, 1+ BLE edema. Vessels: difficult to assess JVD 2/2 habitus Chest: normal inspection of chest Abdomen/GI: normal bowel sounds, protuberant but soft, nontender, no hepatosplenomegaly Extremities/Musculoskeletal: no cyanosis or clubbing, extremities motor strength 5/5, + BLE venous stasis changes noted anteriorly Neurologic: PERRL, EOMI, accommodation nl, no face palsy, no dysarthria, CN's II-XI intact bilaterally and moves all extremities Psychiatric: A+Ox3, poor insight Skin: no rashes, normal color, warm/dry Principal Diagnosis Generalized weakness: Ambulatory dysfunction: Unable to care for self: Acute on chronic diastolic heart failure with preserved ejection fraction: Non compliance w medication regimen: LLE cellulitis: Discharge Exam General Appearance: WD/WN, NAD, appears chronically ill Head: normocephalic, atraumatic Eyes: normal inspection, PERRL ENT: external ear and nose normal, oropharynx moist Neck: normal visual inspection Respiratory: normal respiratory effort, lungs diminished, bibasilar rales, no wheeze, rales, rhonchi. No accessory muscle use Cardiovascular: regular rate, rhythm, normal peripheral pulses, trace BLE edema. Chest: normal inspection of chest Abdomen/GI: normal bowel sounds, protuberant but soft, nontender, no hepatosple nomegaly Extremities/Musculoskeletal: no cyanosis or clubbing, extremities motor strength 5/5, + BLE venous stasis changes noted anteriorly. Lt foot erythema/warmth noted > Rt foot --> improved. Neurologic: PERRL, EOMI, accommodation nl, no face palsy, no dysarthria, CN's II-XI intact bilaterally and moves all extremities Psychiatric: A+Ox3, poor insight Discharge Data Allergies Allergy/AdvReac Type Severity Reaction Status Date / Time No Known Allergies Allergy Unverified 03/07/23 21:07 Consultations 04/17/24 16:50 ED Decision to Admit Stat Hospital Course (1) Generalized weakness: Plan 88-year-old male with PMH of HFpEF (EF: 55-60% in Feb 2023), AV block s/p pacemaker placement, HTN, DM II, mood disorder, morbid obesity, ambulatory dysfunction and other medical problems listed below who presents with generalized weakness. 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 On scheduled baclofen for remote back pain - will hold as it could be contributing to weakness Fall precautions . PT/OT Acute on chronic diastolic heart failure with preserved ejection fraction: Non compliance w medication regimen: Missed at least 2 doses of lasix this week when down, daughter endorsing med- noncompliance at baseline Clinically appeared volume overloaded at presentation. CXR right pleural effusion with right basilar compressive atelectasis. Feb 2023 echo with mild concentric LVH. Left ventricle wall motion is normal. EF 55 to 60%. Pulmonary artery systolic pressure is estimated to be 41 mmHg Home regimen is 40mg PO Lasix BID, s/p iv lasix, c/w home lasix 04/20 pm. Low sodium diet, I&Os, daily weights. FR 1800 ml/d F/u w/ cardio in 2-4 weeks on dc. Acute UTI: rocephin 04/18, f/u urine c/s - contaminant. LLE cellulitis: Lt foot erythematous, tender and warm to touch 04/18 bedside exam - now improved erythema/warmth. Non tender now. Will c/w Rocephin for now, to PO atb at dc brian. XR foot reviewed. Plan 7 d atb Rx. to po atb on dc. Hypomagnesemia: Resolved. Monitor and replete. Acute pain of right hip: Improved since presentation. No evidence of fracture on x-ray. Tylenol as needed. Other chronic medical conditions: Continue with/resume home meds as when able. Pacemaker: Status post pacemaker placement February 2023. Depression: Continue home citalopram, quetiapine at bedtime Hypertension: Continue home losartan. T2DM: Hold metformin, continue with sliding scale. Abnormal LFT: Suspect elevation in the setting of long-term alcohol use. No GI symptoms or abdominal pain. Trend LFT in AM. Alcohol use disorder: No signs of withdrawal, continue with thiamine and folic acid. DVT prophylaxis: Lovenox subcu CODE STATUS: DNR/DNI Patient is being discharged to [facility] with following instructions at the point of discharge: Follow-up with your primary care physician within a week time and likely you will need labs CBC/CMP/magnesium/phosphorus. You were evaluated and managed for acute on chronic heart failure. Maintain compliance with your home diuretic regimen. Follow-up with cardiology in 2 to 4 weeks time upon discharge. You were also treated for left lower extremity cellulitis, you completed 6 days of antibiotic while in hospital, you will be discharged on 1 more days of antibiotic upon discharge. Continue with physical therapy at rehab facility. Take your medications as prescribed. Please make sure that you are able to get your medications today by calling your pharmacy before you leave the hospital so that your treatment continuity is not broken. Home Health Attestation I certify that this patient is under my care and that I, or a physicians entry level administrative assistant working with me, had a face to-face encounter that meets the home health [id number] encounter requirements with this patient. The encounter with the patient was in whole, or in part, for the following medical condition, which is the primary reason for home health care (list medical condition): I certify that, based on my findings, the following services are medically necessary home health services: My clinical findings support the need for the above services because: Further, I certify that my clinical findings support that this patient is homebound (i.e. absences from home require considerable and taxing effort and are for medical reasons or evangelical services or infrequently or of short duration when for other reasons) because: Certification for Home Health Services: Based on the above findings, I certify that this patient is confined to the home and needs intermittent alf care, physical therapy and/or speech therapy or continues to need occupational therapy. The patient is under my care, and I have initiated the establishment of the plan of care. This patient will be followed by a physician who will periodically review the plan of care. Total Time Total Time Spent Total Time Spent (In Minutes): 35 Discharge Plan Discharge Items Patient Disposition: Transfer Inpatient Rehab Fac Reason For Visit: AMBULATORY DYSFUNCTIONM HYPOMAGNESEMIA Discharge Diagnosis: Generalized weakness: Ambulatory dysfunction: Unable to care for self: Acute on chronic diastolic heart failure with preserved ejection fraction: Non compliance w medication regimen: LLE cellulitis: Activity: Resume your previous activity Non-emergency contact: Primary Care Provider Call non-emergency contact if: you have any medication questions and your symptoms worsen Follow-up/Referrals: Mile Geronimo PA-C [Primary Care Provider] - Diet: Carb Consistent or DM2 and Low Sodium (2gm) Fluids: 1800ml (7 cups) Diet Texture: Easy to Chew Addtl Attending Provider Instructions: Follow-up with your primary care physician within a week time and likely you will need labs CBC/CMP/magnesium/phosphorus. You were evaluated and managed for acute on chronic heart failure. Maintain compliance with your home diuretic regimen. Follow-up with cardiology in 2 to 4 weeks time upon discharge. You were also treated for left lower extremity cellulitis, you completed 6 days of antibiotic while in hospital, you will be discharged on 1 more days of antibiotic upon discharge. Continue with physical therapy at rehab facility. Take your medications as prescribed. Please make sure that you are able to get your medications today by calling your pharmacy before you leave the hospital so that your treatment continuity is not broken. Pending Studies at Discharge: No Stand-Alone Forms: [facility] Skilled Items Patient informed of condition?: Yes DNR: Yes Discharge Level of Care: Acute rehab Communicable Disease: No Discharge Prognosis: Stable Lines: None Urinary Catheter: No Medications and DC Order Prescriptions: New cefdinir 300 mg capsule 300 mg PO BID 1 Days Qty: 2 0RF Continued metformin 500 mg tablet 500 mg PO QAM folic acid 1 mg tablet 1 mg PO QAM acetaminophen 325 mg Tablet 650 mg PO Q4H PRN (Reason: pain) Qty: 30 0RF losartan 25 mg tablet 25 mg PO DAILY Qty: 30 0RF furosemide 40 mg tablet 40 mg PO BID Rx Instructions: morning and noon quetiapine 25 mg tablet 25 mg PO HS escitalopram oxalate 10 mg tablet 10 mg PO DAILY vitamin B complex Tablet 1 tab PO DAILY Discontinued baclofen 10 mg tablet 5 mg PO TID Discharge Orders: Discharge Order (Routine); Ordered 04/23/24 Ordered By: Malka Kellogg Admission Data Admit Date/Time: 04/18/24 17:50 Attending Provider: Malka Kellogg Admit Provider: Espinoza Valentin Primary Care Provider: Mile Geronimo Other Providers: [facility]; [facility]; Espinoza Valentin
== END 2024-04-23 18:00 | DRG 291 ==
LOC: ED 14:28 → 2N 14:28 → SUATTDRO 17:10 → 2N 20:09

== ENCOUNTER 2024-05-01 15:28 | Inpatient (IN) ==
--- NOTE | 2024-05-01 15:49 | Emergency Department Note ---
Impression & Plan Ambulatory dysfunction, Pneumonia Admission ED Provider Note HPI: History obtained from patient, bedside RN via EMS report. The patient is a 88-year-old gentleman with history of ambulatory dysfunction, difficulty caring for himself, acute on chronic diastolic heart failure, presents the emergency department after being found down at home by daughter. Patient tells me he is not sure how he ended up on the ground or how long he was down for. Patient states he was recently at [facility] for "Occupational Therapy". According to EMS report he has only been home for short period of time. Patient states he has some pain in his left knee on arrival, he otherwise appears to be in no acute distress. Patient saturating well on room air on arrival, he is otherwise hemodynamically stable. ROS: - Per HPI Differential Diagnosis: Acute intracranial hemorrhage to include subdural hematoma, epidural hematoma, fracture or dislocation of the left knee, acute dehydration/acute kidney injury, rhabdomyolysis, sepsis, amongst other potential pathologies. *Outpatient medications and allergy history reviewed. PE: General: Alert, morbidly obese HEENT: Normocephalic, trachea midline Eyes: Extraocular eye movement is intact, no scleral erythema Pulmonary: Clear to auscultation bilaterally, no wheezing Cardio: Regular rate and irregular rhythm GI: Abdomen is soft to palpation : No suprapubic tenderness MSK: No evidence of trauma or malformation of the extremities, no edema, patient maintains flexion at the bilateral hips Skin: Apparent yeast infection within the bilateral groin folds, otherwise no evidence of rash Neuro: Alert, no focal deficits Psychiatric: Cooperative INDEPENDENT INTERPRETATIONS: hall monitor: (As interpreted by myself): - An order was placed for continuous cardiac monitoring - Patient was noted to be in sinus rhythm with rate of 90 EKG: (As interpreted by myself): Rate: 86 Rhythm: Atrial fibrillation Intervals: QRS 138 ms, otherwise within normal limits ST changes: No ST elevation Time: 1536 Chest x-ray: (As interpreted by myself): Right-sided pneumonia Interventions provided in ED: -Awilda Medical Decision Making: Susannah after the patient arrived IV was established and lab work obtained, patient was placed on electronic device monitor. Lab work shows a mild leukopenia at 4.62 which appears to be chronic in nature, hemoglobin is normal, platelet count is normal, CMP does not show any evidence of any critical findings, there is a chronic transaminitis and chronic elevated bilirubin. Patient does not have any abdominal pain on my exam. Viral panel testing was obtained and is negative. Chest x-ray was obtained and shows evidence of a right sided pneumonia. CT imaging of the head shows evidence of what appears to be an old subdural hematoma versus subdural hygroma. Patient denies hitting his head today as far as he remembers, he does not have any evidence of any acute hemorrhage. In regards to the finding of pneumonia on chest x-ray, patient states he does believe he has had a slight cough. His daughter who later arrived at the bedside states she has not noticed this over the past day since he has been home. He is saturating well on room air and he is otherwise hemodynamically stable and afebrile, I feel that he can be treated in the outpatient setting with Levaquin. EKG obtained here in the ED shows a rate of 86 with apparent atrial fibrillation, this would be a new diagnosis for the patient he states he has not had this previously. Previous EKG shows a paced rhythm, he does have a pacemaker that per chart review appears to have been placed secondary to heart block. Case management was consulted and did contact [facility], the patient was accepted for inpatient rehabilitation as he was just discharged from their facility yesterday. Upon chart review I did not see any evidence of previous documentation of atrial fibrillation, patient is not noted to be on any anticoagulation, I did contact [facility] and spoke with one of the RNs on-call, she was familiar with the patient and she did check into his chart and did not see any evidence of previous diagnosis of atrial fibrillation and stated that previous EKG did not show atrial fibrillation at their facility. Given this, they would recommend admission to our facility for further workup of new onset A-fib and the patient can be accepted upon completion of his inpatient stay. I informed case management of this, the [facility] hospitalist service was consulted for admission. I discussed the patient's case with the on-call hospitalist, Dr. Valentin, and he was in agreement for admission. Patient was placed for admission in stable condition. Consultants/Discussions held with other healthcare providers: -Case management, Vanessa George -Hospitalist, Dr. Valentin Disposition discussion held by myself with: -Patient and patient's daughter Diagnosis: 1. New onset atrial fibrillation, acute 2. Mechanical fall, acute 3. Subdural hygroma 4. Right-sided pneumonia, acute 5. Transaminitis, chronic Disposition: Admission Ori Karimi DO Emergency Medicine Past Med/Surg History Problem List (Updated 05/01/24 @ 17:51 by Ori Karimi DO) Pneumonia (Acute) Ambulatory dysfunction (Acute) Abnormal LFTs Ambulatory dysfunction Generalized weakness Hypomagnesemia Unable to care for self Acute decompensated heart failure Acute pain of right hip (Acute) Non compliance w medication regimen Acute on chronic diastolic heart failure with preserved ejection fraction Medical History (Updated 05/01/24 @ 17:51 by Ori Karimi DO) DM (diabetes mellitus), type 2 Alcohol use disorder Pacemaker Wenckebach second degree AV block Alcohol abuse by father Alcohol abuse by report; pt denies either drinking to excess or ever abstaining Social isolation Advanced care planning/counseling discussion Palliative care by specialist Heart failure with preserved ejection fraction Depression by history potentially major depression, but pt can't provide sufficient data to establish an etiology Osteoarthritis of left knee Hypertension CHF (congestive heart failure) Family History Other Heart disease Social History Smoking Status: Former smoker Hx Alcohol Use: Yes Alcohol type: wine Hx Substance Use: No Preferred Language: Liberian Communication Ability: Effective Clerical Methods Analyst Required: No Beliefs That Will Affect Care: None Current Living Situation: Alone Feels Safe at Home: Yes Assistive Devices: Walker Allergies Allergies Allergy/AdvReac Type Severity Reaction Status Date / Time No Known Allergies Allergy Unverified 05/01/24 18:34 Home Meds Home Medications Medication Instructions Recorded Confirmed furosemide 40 mg tablet 40 mg PO BID 09/07/20 05/01/24 folic acid 1 mg tablet 1 mg PO QAM 03/07/23 05/01/24 metformin 500 mg tablet 500 mg PO QAM 03/07/23 05/01/24 escitalopram oxalate 10 mg tablet 10 mg PO DAILY 04/17/24 05/01/24 quetiapine 25 mg tablet 25 mg PO HS 04/17/24 05/01/24 vitamin B complex 1 tab PO DAILY 04/17/24 05/01/24 baclofen 10 mg tablet 5 mg PO TID 05/01/24 05/01/24 Previous Rx's Medication Instructions Recorded acetaminophen 325 mg tablet 650 mg (2 x 325 mg) PO Q4H PRN 03/18/23 pain #30 tabs losartan 25 mg tablet 25 mg PO DAILY #30 tabs 03/18/23 levofloxacin 750 mg tablet 750 mg PO DAILY 4 days #4 tabs 05/01/24 levofloxacin 750 mg tablet 750 mg PO DAILY 4 days #4 tabs 05/01/24 Results & Data (ED) Vital Signs Vital Signs - 24 hr 05/01/24 15:42 05/01/24 15:42 05/01/24 15:49 Temperature 36.8 C Temperature Source Oral Pulse Rate 81 Pulse Rate [Apical] Pulse Rhythm Irregular Respiratory Rate 25 H Respiratory Effort / Characteristics Respiratory Depth Blood Pressure 152/72 H Blood Pressure [Right Arm] Blood Pressure Mean 98 Blood Pressure Mean [Right Arm] Pulse Oximetry 95 95 94 Oxygen Delivery Method Room Air Room Air Room Air Sepsis Recent Fever Within 48 Hours No Sepsis New/Unexplained Change in Mental Status No Sepsis Action Taken by Nursing No Action Required 05/01/24 16:39 05/01/24 17:20 Temperature Temperature Source Pulse Rate 117 H Pulse Rate [Apical] 87 Pulse Rhythm Respiratory Rate 25 H Respiratory Effort / Characteristics Non-Labored Spontaneous Respiratory Depth Normal Blood Pressure Blood Pressure [Right Arm] 142/75 H Blood Pressure Mean Blood Pressure Mean [Right Arm] 97 Pulse Oximetry 93 Oxygen Delivery Method Room Air Sepsis Recent Fever Within 48 Hours Sepsis New/Unexplained Change in Mental Status Sepsis Action Taken by Nursing Laboratory Data 05/01/24 15:48 05/01/24 15:48 Lab Results 05/01/24 Range/Units 15:48 WBC 4.62 L (4.8-10.8) K/ul RBC 4.58 L (4.70-6.10) M/uL Hgb 15.8 (14.0-18.0) g/dl Hct 45.9 (42.0-52.0) % MCV 100.2 H (80.0-100.0) fL MCH 34.5 H (25.0-34.0) pg MCHC 34.4 (32.0-36.0) g/dL RDW Std Deviation 45.0 (36.4-46.3) fL RDW Coeff of Keegan 12.0 (11.5-14.5) % Plt Count 175 (130-400) K/uL MPV 10.4 (9.4-12.4) fL Immature Gran % (Auto) 0.4 % Neut % (Auto) 88.0 % Lymph % (Auto) 5.6 % [place] % (Auto) 5.6 % Eos % (Auto) 0.2 % Baso % (Auto) 0.2 % Neut # (Auto) 4.06 (1.40-6.50) K/uL Lymph # (Auto) 0.26 L (1.20-3.40) K/uL [place] # (Auto) 0.26 (0.11-0.59) K/uL Eos # (Auto) 0.01 (0.00-0.50) K/uL Baso # (Auto) 0.01 (0.00-0.20) K/uL Immature Gran # (Auto) 0.02 (0.01-0.20) K/uL PT 13.0 H (9.0-12.0) Seconds INR 1.2 H (0.9-1.1) APTT 33 H (21-31) Seconds PTT Ratio 1.2 Sodium 134 L (136-145) mmol/L Potassium 4.1 (3.5-5.1) mmol/L Chloride 93 L (98-107) mmol/L Carbon Dioxide 32 (21-32) mmol/L Anion Gap 9 (3-11) BUN 20 (6-23) mg/dl Creatinine 0.97 (0.6-1.4) mg/dl Est Cr Clr Drug Dosing 73.6 ml/min eGFR 75.09 BUN/Creatinine Ratio 20.6 H (10-20) Glucose 150 H (70-99(Fasting)) mg/dl Calcium 9.3 (8.6-10.3) mg/dl Total Bilirubin 2.7 H (0.2-1.0) mg/dl AST 126 H (13-39) U/L ALT 56 H (7-52) U/L Alkaline Phosphatase 207 H (34-104) U/L Total Creatine Kinase 90 (30-223) U/L Total Protein 7.4 (6.0-8.3) gm/dl Albumin 3.7 (3.4-5.0) gm/dl Globulin 3.7 (2.5-4.0) gm/dl Albumin/Globulin Ratio 1.0 (0.9-2) Lipase 11 (11-82) U/L Adenovirus (PCR) Not Detected (NotDetected) B. pertussis DNA (PCR) Not Detected (NotDetected) B.parapertussis DNA PCR Not Detected (NotDetected) C. pneumoniae DNA (PCR) Not Detected (NotDetected) Coronavirus OC43 (PCR) Not Detected (NotDetected) Coronavirus HKU1 (PCR) Not Detected (NotDetected) Coronavirus 229E (PCR) Not Detected (NotDetected) SARS-CoV-2 (PCR) Not Detected (NotDetected) Coronavirus NL63 (PCR) Not Detected (NotDetected) Human Metapneumovir PCR Not Detected (NotDetected) Influenza Type A (PCR) Not Detected (NotDetected) Influenza Type B (PCR) Not Detected (NotDetected) M. pneumoniae (PCR) Not Detected (NotDetected) Parainfluenza 1 (PCR) Not Detected (NotDetected) Parainfluenza 2 (PCR) Not Detected (NotDetected) Parainfluenza 3 (PCR) Not Detected (NotDetected) Parainfluenza 4 (PCR) Not Detected (NotDetected) RSV (PCR) Not Detected (NotDetected) Entero/Rhino (PCR) Not Detected (NotDetected) Administered Medications Discontinued Medications Sodium Chloride (Nss) 500 mls @ 999 mls/hr IV .Q31M ONE Stop: 05/01/24 16:17 Last Infusion: 05/01/24 17:05 Dose: Infused Documented By: Admin: 05/01/24 16:21 Dose: 999 mls/hr Documented By: CANDIDA Levofloxacin (Levofloxacin 750 Mg Tab) 750 mg PO ONE ONE; Protocol Stop: 05/01/24 17:50 Last Admin: 05/01/24 18:02 Dose: 750 mg Documented By: ANMOL Imaging Data Radiologist's Impression: Chest X-Ray 05/01/24 15:47 Clinical History: Fall Technique: A frontal view of the chest was obtained Comparison is made to the prior examination dated 04/17/2014 Findings: There is slightly worsened right upper lobe infiltrate, concerning for pneumonia. There is an unchanged small right pleural effusion. The heart is mildly enlarged. No definite left pleural effusion or pneumothorax is seen. There is a suspected left upper lobe nodule No fracture is noted. A left chest wall pacemaker device is again seen Impression: 1. Right lower lobe pneumonia and small right pleural effusion 2. Apparent left upper lobe nodule, indeterminate in nature. A follow-up chest CT could be obtained 3. Mild cardiomegaly Electronically signed by Isaac Frances 05-01-2024 4:[address] 05/01/24 15:48 Clinical History: Found down Technique: Axial computed tomography images were obtained of the brain without intravenous contrast. Findings: There is diffuse cerebral atrophy, within expected limits for the patient's age. Areas of decreased attenuation are seen within the periventricular white matter, likely representing chronic small vessel ischemic disease. There is a low-attenuation right parietal subdural fluid collection, measuring up to 4 mm in thickness. There is no definite sign of acute or old infarction. No definite acute intracranial hemorrhage is evident. No definite mass lesion is seen on this noncontrast examination. There is no midline shift or other form of herniation. No hydrocephalus is seen. No fracture is identified. The orbits and the visualized paranasal sinuses appear unremarkable. The mastoid air cells appear clear. Impression: 1. 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 Low-attenuation right parietal subdural fluid collection, consistent with a subdural hygroma or old subdural hematoma 3. No definite acute pathology Electronically signed by Isaac Frances 05-01-2024 5:30 PM Knee X-Ray 05/01/24 16:43 EXAM: Radiographs of the Left Knee 3 Views INDICATION: Trauma TECHNIQUE: Three views of the left knee. COMPARISON: No relevant prior studies available. FINDINGS: Bones/joints: There is moderate narrowing of the medial joint compartment. Mild to moderate tricompartment spurring. No fracture, erosion or loose body. Small joint effusion noted. Soft tissues: No abnormality noted. No radiopaque foreign body noted. Vasculature: Diffuse atherosclerotic calcification noted. IMPRESSION: Tricompartment primary osteoarthritis. No acute osseous abnormality. ACT 112: N/A Electronically signed by Amy Hollis 05-01-2024 5:38 PM Discharge Plan Visit Data Chief Complaint: Fall ED Provider: Ori Karimi Discharge Problem: Ambulatory dysfunction, Pneumonia Patient Disposition: Transfer Inpatient Rehab Fac Condition: Good Discharge Instructions Krames/Other Patient Handouts: ED Pneumonia (Adult), ED Fall Prevention Activity Restrictions/Additional Instructions: [facility] directly to [facility] for inpatient rehabilitation placement. Please continue to take your antibiotic, Levaquin, as prescribed for pneumonia that was found on chest x-ray today. Please return to the emergency room if you develop any new or worsening symptoms or if the need arises. Forms Stand Alone Forms: My [facility], Important Visit Information Prescriptions Prescriptions: New levofloxacin 750 mg tablet 750 mg PO DAILY 4 Days Qty: 4 0RF Rx Instructions: Please take 1 tablet daily, begin on 05/02/2024 levofloxacin 750 mg tablet 750 mg PO DAILY 4 Days Qty: 4 0RF Rx Instructions: Please take 1 tablet daily, please begin on day 2 of therapy (05/02/2024). No Action metformin 500 mg tablet 500 mg PO QAM folic acid 1 mg tablet 1 mg PO QAM acetaminophen 325 mg Tablet 650 mg PO Q4H PRN (Reason: pain) Qty: 30 0RF losartan 25 mg tablet 25 mg PO DAILY Qty: 30 0RF furosemide 40 mg tablet 40 mg PO BID Rx Instructions: morning and noon baclofen 10 mg tablet 5 mg PO TID quetiapine 25 mg tablet 25 mg PO HS escitalopram oxalate 10 mg tablet 10 mg PO DAILY vitamin B complex Tablet 1 tab PO DAILY Referrals Referrals: Mile Geronimo PA-C [Primary Care Provider] -
[2024-05-01] MEDS: SODIUM CHLORIDE 0.9% 500 ML IV ONE (16:21)
[2024-05-01 16:22] LABS: Albumin Level 3.7 gm/dl (3.4-5.0); Bilirubin,Total 2.7 mg/dl (0.2-1.0); Calcium 9.3 mg/dl (8.6-10.3); Potassium 4.1 mmol/L (3.5-5.1)
[2024-05-01 16:28] LABS: BUN Creatinine Ratio 20.6 (10-20); Creatinine Clr Calc Pharmacy 73.6 ml/min; Globulin 3.7 gm/dl (2.5-4.0); Total Protein 7.4 gm/dl (6.0-8.3)
[2024-05-01 16:29] LABS: Basophils # (auto) 0.01 K/uL (0.00-0.20); Basophils % (auto) 0.2 %; Eosinophils # (auto) 0.01 K/uL (0.00-0.50); Eosinophils % (auto) 0.2 %; Hematocrit (blood only) 45.9 % (42.0-52.0); Hemoglobin 15.8 g/dl (14.0-18.0); Immature Granulocytes # (auto) 0.02 K/uL (0.01-0.20); Immature Granulocytes % (auto) 0.4 %; Lymphocytes # (auto) 0.26 K/uL (1.20-3.40); Lymphocytes % (auto) 5.6 %; Mean Corpuscular Hemoglobin 34.5 pg (25.0-34.0); Mean Corpuscular Hgb Conc 34.4 g/dL (32.0-36.0); Mean Corpuscular Volume 100.2 fL (80.0-100.0); Mean Platelet Volume 10.4 fL (9.4-12.4); Monocytes # (auto) 0.26 K/uL (0.11-0.59); Monocytes % (auto) 5.6 %; Neutrophils # (auto) 4.06 K/uL (1.40-6.50); Platelet Count 175 K/uL (130-400); Red Blood Count 4.58 M/uL (4.70-6.10); White Blood Count 4.62 K/ul (4.8-10.8)
[2024-05-01 16:40] LABS: INR 1.2 (0.9-1.1); Partial Thromboplastin Ratio 1.2; Partial Thromboplastin Time 33 Seconds (21-31)
--- NOTE | 2024-05-01 16:40 | XRay Report ---
Clinical History: Fall Technique: A frontal view of the chest was obtained Comparison is made to the prior examination dated 04/17/2014 Findings: There is slightly worsened right upper lobe infiltrate, concerning for pneumonia. There is an unchanged small right pleural effusion. The heart is mildly enlarged. No definite left pleural effusion or pneumothorax is seen. There is a suspected left upper lobe nodule No fracture is noted. A left chest wall pacemaker device is again seen Impression: 1. Right lower lobe pneumonia and small right pleural effusion 2. Apparent left upper lobe nodule, indeterminate in nature. A follow-up chest CT could be obtained 3. Mild cardiomegaly Electronically signed by Isaac Frances 05-01-2024 4:39 PM
[2024-05-01 17:00] LABS: Adenovirus PCR Not Detected (NotDetected); Bordetella parapertussis PCR Not Detected (NotDetected); Bordetella pertussis PCR Not Detected (NotDetected); Chlamydia pneumoniae PCR Not Detected (NotDetected); Coronavirus 229E PCR Not Detected (NotDetected); Coronavirus CoV-2 (COVID19)PCR Not Detected (NotDetected); Coronavirus HKU1 PCR Not Detected (NotDetected); Coronavirus NL63 PCR Not Detected (NotDetected); Coronavirus OC43PCR Not Detected (NotDetected); Human Metapneumovirus PCR Not Detected (NotDetected); Influenza A PCR Not Detected (NotDetected); Influenza B PCR Not Detected (NotDetected); Mycoplasma pneumoniae PCR Not Detected (NotDetected); Parainfluenza Virus 1 PCR Not Detected (NotDetected); Parainfluenza Virus 2 PCR Not Detected (NotDetected); Parainfluenza Virus 3 PCR Not Detected (NotDetected); Parainfluenza Virus 4 PCR Not Detected (NotDetected); Respiratory Syncytial VirusPCR Not Detected (NotDetected); Rhinovirus/Enterovirus PCR Not Detected (NotDetected)
--- NOTE | 2024-05-01 17:30 | CT Scan Report ---
Clinical History: Found down Technique: Axial computed tomography images were obtained of the brain without intravenous contrast. Findings: There is diffuse cerebral atrophy, within expected limits for the patient's age. Areas of decreased attenuation are seen within the periventricular white matter, likely representing chronic small vessel ischemic disease. There is a low-attenuation right parietal subdural fluid collection, measuring up to 4 mm in thickness. There is no definite sign of acute or old infarction. No definite acute intracranial hemorrhage is evident. No definite mass lesion is seen on this noncontrast examination. There is no midline shift or other form of herniation. No hydrocephalus is seen. No fracture is identified. The orbits and the visualized paranasal sinuses appear unremarkable. The mastoid air cells appear clear. Impression: 1. 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 Low-attenuation right parietal subdural fluid collection, consistent with a subdural hygroma or old subdural hematoma 3. No definite acute pathology Electronically signed by Isaac Frances 05-01-2024 5:30 PM
--- NOTE | 2024-05-01 17:39 | XRay Report ---
EXAM: Radiographs of the Left Knee 3 Views INDICATION: Trauma TECHNIQUE: Three views of the left knee. COMPARISON: No relevant prior studies available. FINDINGS: Bones/joints: There is moderate narrowing of the medial joint compartment. Mild to moderate tricompartment spurring. No fracture, erosion or loose body. Small joint effusion noted. Soft tissues: No abnormality noted. No radiopaque foreign body noted. Vasculature: Diffuse atherosclerotic calcification noted. IMPRESSION: Tricompartment primary osteoarthritis. No acute osseous abnormality. ACT 112: N/A Electronically signed by Amy Hollis 05-01-2024 5:38 PM
[2024-05-01] MEDS ORDERED: levoFLOXacin 500 MG TAB PO STA (17:48)
[2024-05-01] MEDS: levoFLOXacin 750 MG TAB PO ONE (18:02)
--- NOTE | 2024-05-01 19:22 | History & Physical Report ---
Date of Service May 01, 2024 Assessment & Plan (1) New onset atrial fibrillation: (2) Acute on chronic diastolic heart failure with preserved ejection fraction: (3) Abnormal LFTs: (4) DM (diabetes mellitus), type 2: (5) Alcohol use disorder: (6) Pacemaker: (7) Ambulatory dysfunction: Plan Patient 88-year-old gentleman presents to the ED after having a fall at home and being found on the floor. ED evaluation noted new atrial fibrillation. Patient is a risk for worsening arrhythmias, also appears to be some progressing heart failure. And most likely will need additional rehabilitation before returning home. Admit to a monitored unit in the hospital Consult cardiology for new onset atrial fibrillation. Patient just recently had pacemaker inserted for Mobitz type II arrhythmia Start metoprolol for blood pressure and rate control Diuresis with IV Lasix Eliquis for secondary stroke prevention Update echocardiogram with for new findings of atrial fibrillation Reviewed chest x-ray from previous hospitalization. Chest x-ray today appears to be more congestion versus pneumonia. And not significantly changed from previous. Will do CT of the chest to further define the findings of the chest x-ray. Will hold on any additional antibiotics at this time. Will observe off of antibiotics. Patient's LFTs had continued to increase over the last month. Patient does drink alcohol, however does have so slight he obstructive pattern. Will get ultrasound of the liver to further delineate. Monitor glucose checks and cover with insulin Low suspicion that patient will have any significant alcohol withdrawal, he has not had any alcohol [facility] and has only been home [address] as needed orders for Ativan should he have any signs and symptoms of withdrawal. Monitor laboratory studies Physical therapy and Occupational Therapy Case management for rehab placed Daughter at bedside agreeable plan of care History of Present Illness Chief Complaint: Found on the floor at home Primary Care Provider: Mile Geronimo PA-C Patient 88-year-old gentleman who was just recently discharged from the hospital end of [facility] During that hospitalization he was treated for couple different infections including pneumonia, possible cellulitis. He was discharged on cefdinir to complete for full course. He had some significant ambulatory dysfunction and overall weakness. Had difficulty caring for himself and was discharged to rehab. [facility]. This morning his daughter who he lives in a basement apartment found him on the floor and he could not recall how long he had been there. In the emergency room workup was significant for some increasing right pleural effusion, EKG which shows what appears to be new onset atrial fibrillation with controlled ventricular response and increasing LFTs. He was referred to our service for further evaluation. Time my evaluation patient denies any pain. Denies any shortness of breath. No chest pain, no palpitations. No nausea or vomiting. He has no recollection of how he fell. Daughter at the bedside states that it is somewhat unusual his walker was somewhat far from where he was laying on the floor. She has noticed a fair amount of restlessness with his sleep. She also shared that he would drink maybe 2 solo cups of wine on a daily basis. Now of course he was not drinking that [facility] but he definitely had some wine last night based on the fact that there was a solo cup sitting on his desk that had wine and it. This may have contributed to his fall. He denies any abdominal pain. No new problems of his bowels or bladder. His daughter is at felt that he was maybe not quite ready to be discharged from [facility] but apparently had been doing well enough that they discharged him to continue his care at home. He denies any fever or chills. No purulent sputum. Maybe a little bit of a cough. In February he was in the hospital for [facility] arrhythmia and had a pacemaker placed at that time. Reviewing EKGs and cardiology notations do not see any mention of a previous diagnosis of atrial fibrillation. Allergies Allergy/AdvReac Type Severity Reaction Status Date / Time No Known Allergies Allergy Unverified 05/01/24 18:34 Home Medications Medication Instructions Recorded Confirmed Type furosemide 40 mg tablet 40 mg PO BID 09/07/20 05/01/24 History folic acid 1 mg tablet 1 mg PO QAM 03/07/23 05/01/24 History metformin 500 mg tablet 500 mg PO QAM 03/07/23 05/01/24 History acetaminophen 325 mg tablet 650 mg (2 x 325 mg) PO Q4H PRN 03/18/23 05/01/24 Rx pain #30 tabs losartan 25 mg tablet 25 mg PO DAILY #30 tabs 03/18/23 05/01/24 Rx escitalopram oxalate 10 mg tablet 10 mg PO DAILY 04/17/24 05/01/24 History quetiapine 25 mg tablet 25 mg PO HS 04/17/24 05/01/24 History vitamin B complex 1 tab PO DAILY 04/17/24 05/01/24 History baclofen 10 mg tablet 5 mg PO TID 05/01/24 05/01/24 History levofloxacin 750 mg tablet 750 mg PO DAILY 4 days #4 tabs 05/01/24 Rx levofloxacin 750 mg tablet 750 mg PO DAILY 4 days #4 tabs 05/01/24 05/01/24 Rx Past Med/Surg History Problem List (Updated 05/01/24 @ 19:19 by Espinoza Valentin DO) New onset atrial fibrillation Pneumonia (Acute) Ambulatory dysfunction (Acute) Abnormal LFTs Ambulatory dysfunction Generalized weakness Hypomagnesemia Unable to care for self Acute decompensated heart failure Acute pain of right hip (Acute) Non compliance w medication regimen Acute on chronic diastolic heart failure with preserved ejection fraction Medical History (Updated 05/01/24 @ 19:19 by Espinoza Valentin DO) DM (diabetes mellitus), type 2 Alcohol use disorder Pacemaker Wenckebach second degree AV block Alcohol abuse by father Alcohol abuse by report; pt denies either drinking to excess or ever abstaining Social isolation Advanced care planning/counseling discussion Palliative care by specialist Heart failure with preserved ejection fraction Depression by history potentially major depression, but pt can't provide sufficient data to establish an etiology Osteoarthritis of left knee Hypertension CHF (congestive heart failure) Family History Other Heart disease Social History Smoking Status: Former smoker Hx Alcohol Use: Yes Alcohol type: wine Hx Substance Use: No Preferred Language: Italian Communication Ability: Effective Tie Hacker Required: No Beliefs That Will Affect Care: None Current Living Situation: Alone Feels Safe at Home: Yes Assistive Devices: Walker Review of Systems Review of Systems: Pertinent positive and negative review of systems as mentioned in the HPI Physical Exam Physical Exam: Constitutional: Alert, ill in appearance, nontoxic HEENT: Mucous membranes moist. Sclera clear Neck: Soft, no adenopathy Lungs: Decreased breath sounds, poor airflow, crackles and rales at bases right greater than left CV: S1-S2, irregular Abdomen: Soft, nontender, nondistended Extremities: Hard pretibial edema Musculoskeletal: No significant joint tenderness Neuro: No focal deficits, generalized weakness Psych: Cooperative, normal mood Results & Data Results & Data Vital Signs (Past 12 Hours) Vital Signs Temp Pulse Pulse Resp BP BP Pulse Ox 05/01/24 18:00 69 22 126/69 93 05/01/24 17:20 87 25 H 142/75 H 93 05/01/24 16:39 117 H 05/01/24 15:49 94 05/01/24 15:42 95 05/01/24 15:42 36.8 C 81 25 H 152/72 H 95 O2 Del Method 05/01/24 18:00 Room Air 05/01/24 17:20 Room Air 05/01/24 16:39 05/01/24 15:49 Room Air 05/01/24 15:42 Room Air 05/01/24 15:42 Room Air Diagnostic Findings Reviewed imaging, laboratory and diagnostic studies. Pertinent findings as below. WBCs 4.6 Hemoglobin 15.8 Platelets 175 INR 1.2 PT 13.0 PTT 33 Sodium 134 Chloride 93 Creatinine 0.97 Glucose 150 LFTs reviewed, all have been increasing since previous admission Lipase 11 Respiratory viral panel negative Personally reviewed chest x-ray, right pleural effusion and suspected congestion/atelectasis. Reviewed knee x-ray and head CT reports Personally reviewed EKG, atrial fibrillation with controlled ventricular response Code Status & VTE Plan VTE Prophylaxis Plan VTE Prophylaxis will be ordered: Yes
--- NOTE | 2024-05-01 20:51 | Ultrasound Report ---
Exam(s): US LIVER EXAM: US Abdomen Limited CLINICAL HISTORY: Reason for exam: Elevated LFTs. TECHNIQUE: Real-time ultrasound of the abdomen with image documentation. COMPARISON: None. FINDINGS: TECHNIQUE: Real-time imaging of the right upper quadrant is performed in transverse and longitudinal projections. COMPARISON: FINDINGS: The liver measures 17.5 cm in length. Heterogeneously increased in parenchymal echogenicity. Unremarkable intrahepatic bile ducts. The gallbladder is partially contracted and contains numerous small stones/cholelithiasis. Increased bladder wall thickness: 4 mm. No pericholecystic fluid is seen. The common bile duct is normal in caliber: 5 mm in diameter. The pancreas is not visualized. The right kidney measures 12.6 cm in length. Contour lobulation. No hydronephrosis or discernible mass. No obvious calculi. No free fluid is identified. IMPRESSION: Coarsened liver parenchymal echotexture with increased echogenicity, concerning for chronic liver parenchymal disease. Recommend clinical correlation. Cholelithiasis. Increased bladder wall thickness. The need for additional imaging/HIDA scan can be determined clinically. Normal CBD. Right renal: No hydronephrosis or obvious calculi. Electronically signed by: Alex Willingham MD, DABR 05/01/24 20:50 PM
[2024-05-01] MEDS ORDERED: ONDANSETRON INJ 2 MG/ML 2 ML VIAL IV PRN (21:40)
[2024-05-01] MEDS ORDERED: ACETAMINOPHEN 325 MG TAB PO PRN (21:40)
[2024-05-01] MEDS ORDERED: GLUCOSE 40% GEL 15 GM TUBE PO PRN (21:40)
[2024-05-01] MEDS ORDERED: DEXTROSE 50% 50 ML SYRINGE IV PRN (21:40)
[2024-05-01] MEDS ORDERED: CARBOHYDRATES FOR HYPOGLYCEMIA PO PRN (21:40)
[2024-05-01] MEDS ORDERED: ALUMINUM/MAGNESIUM SUSP 30 ML UDC PO PRN (21:40)
[2024-05-01] MEDS ORDERED: LORazepam 2 MG/1 ML VIAL IV PRN (21:40)
[2024-05-01] MEDS ORDERED: GLUCOSE 10 TAB/TUBE PO PRN (21:40)
[2024-05-01] MEDS ORDERED: LORazepam 1 MG TAB PO PRN (21:40)
[2024-05-01] MEDS ORDERED: GLUCAGON FOR INJ 1 MG VIAL SQ PRN (21:40)
[2024-05-01] MEDS: INSULIN ASPART PER UNIT CHARGE SC SCH (22:13)
[2024-05-01] MEDS: METOPROLOL TARTRATE 25 MG TAB PO SCH (22:17)
[2024-05-01] MEDS: QUEtiapine FUMARATE 25 MG TABLET PO SCH (22:18)
[2024-05-01] MEDS: APIXABAN 5 MG TABLET PO SCH (22:18)
[2024-05-01] MEDS: BACLOFEN 10 MG TAB PO SCH (22:18)
[2024-05-01] MEDS: FUROSEMIDE 40 MG/4 ML VIAL IV SCH (22:19)
[2024-05-02 04:35] LABS: Hematocrit (blood only) 39.4 % (42.0-52.0); Hemoglobin 13.7 g/dl (14.0-18.0); Mean Corpuscular Hemoglobin 34.9 pg (25.0-34.0); Mean Corpuscular Hgb Conc 34.8 g/dL (32.0-36.0); Mean Corpuscular Volume 100.3 fL (80.0-100.0); Mean Platelet Volume 10.6 fL (9.4-12.4); Platelet Count 158 K/uL (130-400); RDW Coefficient of Variation 11.8 % (11.5-14.5); RDW Standard Deviation 44.1 fL (36.4-46.3); Red Blood Count 3.93 M/uL (4.70-6.10); White Blood Count 3.29 K/ul (4.8-10.8)
[2024-05-02 04:41] LABS: Albumin Level 3.1 gm/dl (3.4-5.0); BUN Creatinine Ratio 24.7 (10-20); Bilirubin Direct 0.9 mg/dl (0-0.2); Bilirubin,Total 2.1 mg/dl (0.2-1.0); Calcium 8.2 mg/dl (8.6-10.3); Creatinine Clr Calc Pharmacy 83.9 ml/min; Magnesium 1.6 mg/dl (1.7-2.4); Potassium 3.5 mmol/L (3.5-5.1); Total Protein 6.4 gm/dl (6.0-8.3)
[2024-05-02] MEDS: COUGH DROP (SUGAR FREE) LOZ 24 LOZ/1 BOX BUCCAL PRN (08:50)
[2024-05-02] MEDS: VITAMIN B COMPLEX TAB PO SCH (08:51)
[2024-05-02] MEDS: ESCITALOPRAM OXALATE 10 MG TAB PO SCH (08:52)
[2024-05-02] MEDS: LOSARTAN POTASSIUM 25 MG TAB PO SCH (08:52)
[2024-05-02] MEDS: FOLIC ACID 1 MG TAB PO SCH (08:53)
--- NOTE | 2024-05-02 08:57 | Cardiology Consultation ---
Date of Consultation May 02, 2024 Assessment & Plan (1) New onset atrial fibrillation: (2) Acute on chronic diastolic heart failure with preserved ejection fraction: (3) Pneumonia: Plan 88-year-old male admitted after being found on floor by his daughter. Pacemaker interrogation reveals episodes of atrial fibrillation dating back to January 2024. Remains in sinus rhythm since admission. Heart rate controlled. Preliminary review of bedside echocardiogram demonstrates preserved LV systolic function without significant valvular pathology. On physical exam, patient does not appear overtly volume overloaded after 2 doses of intravenous furosemide. CT of the chest demonstrating collapsed right lower lobe with possible pneumonia. Recommend hold IV furosemide after evening dose today. Reassess volume status, GFR, electrolytes in AM. Transition back to outpatient, oral furosemide 40 mg twice daily in the next 24-48 hours. Agree with cautious addition of oral anticoagulation with evidence of paroxysmal atrial fibrillation. Per pacemaker interrogation, heart rate remains in the 80s during periods of atrial fibrillation. I would not add beta-will at this time due to borderline resting hypotension. Continue low-dose losartan as ordered. I spent a total of 65 minutes on the date of service in preparation, delivery, and documentation of the care provided to this patient, excluding any time spent in the performance of separately billed services. Dov Patton DO, [facility] History of Present Illness Reason for Consultation: New atrial fibrillation Requesting Physician: Dr. Valentin Attending Physician: Espinoza Valentin DO History of Present Illness 88-year-old male with history of chronic diastolic heart failure, second-degree AV block Mobitz type I status post pacemaker implantation presents emergency department after being found down at home by his daughter. Poor historian. Unsure of how long he was on the ground or how he ended up there. Recently at [facility] for occupational therapy. Per review of records, only home for a few days prior to current incident. Denies chest pain or unusual shortness of breath. Admits to chronic dyspnea on exertion. Ambulates with use of a walker. Denies any recent falls or injuries. No lightheadedness, dizziness, syncope, or near syncope. Recent pacemaker interrogation 04/04/24 demonstrates episodes of atrial fibrillation dating back to February 26, 2024 when he experienced a episode lasting 1 hour and 26 minutes minutes within maximum ventricular rate of 86 bpm. Repeat pacemaker interrogation in the ER demonstrates sinus rhythm. No recurrent episodes of atrial fibrillation since March. Although the ECG on admission was read as atrial fibrillation, appears to be sinus rhythm with PACs, and intermittent atrial and AV pacing. Allergies Allergy/AdvReac Type Severity Reaction Status Date / Time No Known Allergies Allergy Unverified 05/01/24 18:34 Home Medications Medication Instructions Recorded Confirmed Type furosemide 40 mg tablet 40 mg PO BID 09/07/20 05/01/24 History folic acid 1 mg tablet 1 mg PO QAM 03/07/23 05/01/24 History metformin 500 mg tablet 500 mg PO QAM 03/07/23 05/01/24 History acetaminophen 325 mg tablet 650 mg (2 x 325 mg) PO Q4H PRN 03/18/23 05/01/24 Rx pain #30 tabs losartan 25 mg tablet 25 mg PO DAILY #30 tabs 03/18/23 05/01/24 Rx escitalopram oxalate 10 mg tablet 10 mg PO DAILY 04/17/24 05/01/24 History quetiapine 25 mg tablet 25 mg PO HS 04/17/24 05/01/24 History vitamin B complex 1 tab PO DAILY 04/17/24 05/01/24 History baclofen 10 mg tablet 5 mg PO TID 05/01/24 05/01/24 History levofloxacin 750 mg tablet 750 mg PO DAILY 4 days #4 tabs 05/01/24 Rx levofloxacin 750 mg tablet 750 mg PO DAILY 4 days #4 tabs 05/01/24 05/01/24 Rx Patient History Medical History DM (diabetes mellitus), type 2 Alcohol use disorder Pacemaker Wenckebach second degree AV block Alcohol abuse by father Alcohol abuse by report; pt denies either drinking to excess or ever abstaining Social isolation Advanced care planning/counseling discussion Palliative care by specialist Heart failure with preserved ejection fraction Depression by history potentially major depression, but pt can't provide sufficient data to establish an etiology Osteoarthritis of left knee Hypertension CHF (congestive heart failure) Family History Other Heart disease Social History Smoking Status: Former smoker Hx Alcohol Use: Yes Alcohol type: wine Hx Substance Use: No Preferred Language: [place] Communication Ability: Effective Underwriting Service Representative Required: No Beliefs That Will Affect Care: None Current Living Situation: Alone Other Information That Helps Us Care for You: No Feels Safe at Home: Yes Safety Concerns: Feels Safe At This Time Assistive Devices: Walker Review of Systems Review of Systems: All systems reviewed & are unremarkable except as noted in Subjective Physical Exam Constitutional: well developed, well nourished and + obese Respiratory: no respiratory distress, no labored breathing and no retractions Auscultation: no crackles, no rales, no rhonchi and no wheezes Cardiovascular: Rate/Rhythm: regular rate and regular rhythm Heart Sounds: normal S1 and normal S2; no murmur Vessels: no JVD and no carotid bruit Extremities: no edema Gastrointestinal (Abdomen): Inspection/Auscultation: + abdomen abnormal to inspection, abdomen not distended and + abnormal bowel sounds Neurologic: CN's II-XI intact bilaterally and moves all extremities; no focal motor deficits Results & Data Vital Signs (Past 12 Hours) Vital Signs Temp Pulse Pulse Resp BP BP Pulse Ox 05/02/24 07:24 71 05/02/24 07:10 70 26 H 92 05/02/24 06:00 71 24 115/68 94 05/02/24 01:50 05/02/24 01:50 36.7 C 79 20 109/58 L 94 05/02/24 01:32 64 28 H 109/58 L 93 05/01/24 23:09 71 24 98/56 L 95 05/01/24 22:50 72 05/01/24 22:40 05/01/24 22:02 77 24 143/86 H 97 05/01/24 21:00 83 23 139/70 94 Pulse Ox O2 Del Method O2 Del Method 05/02/24 07:24 05/02/24 07:10 Room Air 05/02/24 06:00 Room Air 05/02/24 01:50 Room Air 05/02/24 01:50 Room Air 05/02/24 01:32 Room Air 05/01/24 23:09 Room Air 05/01/24 22:50 05/01/24 22:40 96 Room Air 05/01/24 22:02 Room Air 05/01/24 21:00 Room Air Laboratory Results Cardiac Enzymes 05/01/24 05/02/24 Range/Units 15:48 03:28 AST 126 H 107 H (13-39) U/L Coagulation 05/01/24 Range/Units 15:48 PT 13.0 H (9.0-12.0) Seconds APTT 33 H (21-31) Seconds CBC 05/01/24 05/02/24 Range/Units 15:48 03:28 WBC 4.62 L 3.29 L (4.8-10.8) K/ul RBC 4.58 L 3.93 L (4.70-6.10) M/uL Hgb 15.8 13.7 L (14.0-18.0) g/dl Hct 45.9 39.4 L (42.0-52.0) % Plt Count 175 158 (130-400) K/uL Neut # (Auto) 4.06 (1.40-6.50) K/uL Lymph # (Auto) 0.26 L (1.20-3.40) K/uL Hickman # (Auto) 0.26 (0.11-0.59) K/uL Eos # (Auto) 0.01 (0.00-0.50) K/uL Baso # (Auto) 0.01 (0.00-0.20) K/uL Comprehensive Metabolic Panel 05/01/24 05/02/24 Range/Units 15:48 03:28 Sodium 134 L 134 L (136-145) mmol/L Potassium 4.1 3.5 (3.5-5.1) mmol/L Chloride 93 L 96 L (98-107) mmol/L Carbon Dioxide 32 31 (21-32) mmol/L BUN 20 21 (6-23) mg/dl Creatinine 0.97 0.85 (0.6-1.4) mg/dl Glucose 150 H 87 (70-99(Fasting)) mg/dl Calcium 9.3 8.2 L (8.6-10.3) mg/dl Direct Bilirubin 0.9 H (0-0.2) mg/dl AST 126 H 107 H (13-39) U/L ALT 56 H 46 (7-52) U/L Alkaline Phosphatase 207 H 171 H (34-104) U/L Total Protein 7.4 6.4 (6.0-8.3) gm/dl Albumin 3.7 3.1 L (3.4-5.0) gm/dl Intake and Output 05/01/24 05/02/24 05/02/24 22:59 06:59 14:59 Intake Total 500 / 500 0 / 500 Output Total 0 / 0 Balance 500 / 500 0 / 500 Intake: IV 500 / 500 Sodium Chloride 0.9% 500 ml @ 500 / 500 999 mls/hr IV .Q31M ONE Rx#: [id number] Oral 0 / 0 Output: Urine 0 / 0 Other: Weight 130.6 kg 130.6 kg Weight Measurement Method Built in [facility]scale Built in [facility] (3) Pneumonia Laterality: right Lung location: lower lobe of lung Pneumonia type: due to unspecified organism Qualified Code(s): J18.9 - Pneumonia, unspecified organism
--- NOTE | 2024-05-02 09:33 | CT Scan Report ---
EXAM: CT chest diagnostic wo con CLINICAL HISTORY: Effusion TECHNIQUE: Contiguous axial CT images of the chest were acquired without administration of intravenous contrast. One of the following dose reduction techniques were utilized for this exam: Automated exposure control, adjustment of the mA and/or kV according to patient size, and use of iterative reconstruction. COMPARISON: Prior XR chest 04/17/2024 FINDINGS: Lungs: Moderate amount of right pleural effusion (stable). Minimal left pleural reaction Collapse of most of the right lower lung lobe. Multiple bilateral pleural calcifications. The questionable left upper lobe nodue that was suspected in XR chest dated [05/01/2024] was revealed on CT to be one of the left-sided pleural calcifications. The right upper and middle lung lobes as well as the left lung are seen aerated with no evidence of consolidations or nodules. No evidence of interstitial lung disease or emphysema. Mediastinum: The mediastinum is normal in size and contour. No mediastinal mass or abnormal lymphadenopathy. Mildly enlarged cardiac size. Prominent pericardium. The pacemaker is seen. Atherosclerotic aortic calcifications. Hilar Structures: The hilar structures appear normal without enlargement or abnormality. Trachea and Main Bronchi: The trachea and main bronchi are patent without evidence of obstruction or abnormality. A small polypoidal-like structure is seen at the posterior tracheal wall at the level of C7 measuring 6mm of likely representing retained mucous secretions. no luminal compromise. Chest Wall: The chest wall is unremarkable with no evidence of soft tissue abnormalities. Advanced spondylodegenerative changes of the dorsal spine. The scoliotic configuration of the dorsal spine...could be positional. Upper Abdomen: Gallbladder stones. Mild hepatic border irregularities with cirrhotic configuration, ultrasound evaluation of the liver if indicated clinically advised. IMPRESSION: 1. Right pleural effusion (stable) and minimal left pleural reaction. 2. Collapse involving most of the right lower lung lobe. 3. Multiple bilateral pleural calcifications. 4. Mildly enlarged cardiac size with prominent pericardium. 5. Suspected cirrhotic hepatic configuration, US/ laboratory correlation suggested. Electronically signed by Alejandra Abebe 05-02-2024 09:32 AM
--- NOTE | 2024-05-02 13:44 | Hospitalist Progress Note ---
Date of Service May 02, 2024 Assessment & Plan (1) New onset atrial fibrillation: (2) Acute on chronic diastolic heart failure with preserved ejection fraction: (3) Impaired proprioception: (4) Recurrent right pleural effusion: (5) Liver cirrhosis: (6) DM (diabetes mellitus), type 2: (7) Alcohol use disorder: (8) Pacemaker: (9) Ambulatory dysfunction: (10) Asymptomatic cholelithiasis: Plan Patient presented to the ED after being found on the floor at home after a fall. History is difficult to piece together. Patient has been observed to be quite restless while sleeping, concern may be attempted apnea late at night causing his falls at home and being found on the floor in the morning. Patient now also complaining of some disorientation and issues with proprioception feeling that he is sitting up when he is laying down. Patient continues to require hospital level care and evaluation. Continue on a monitored unit Check MRI of the brain for this impaired proprioception if his pacemaker is compatible Reviewed cardiology consultation, on review/interrogation of pacemaker appears that he is having paroxysmal atrial fibrillation at least back to January 2024. Continue current medications, continue anticoagulation Suspect patient's cholelithiasis is asymptomatic. Suspect patient's abnormal LFTs are due to liver cirrhosis probably multifactorial possibly fatty liver exacerbated by alcohol misuse will continue to monitor LFTs intermittently. Continue therapies Continue IV diuresis. Check chest x-ray in a.m. to evaluate pleural effusion. Did discuss thoracentesis with patient and daughter at the bedside. Would like to see if he responds to diuresis before doing thoracentesis but would consider if continues to be symptomatic from this. Continue to monitor glucose with insulin coverage Case management working on rehab placement, anticipate will need 2-3 more days of hospitalization Daughter at bedside and updated Admission and Anticipated Discharge Date Admission Date: May 01, 2024 Subjective Patient having sensation that he is not in correct plane. He is laying down but feels as though he is sitting up. Feels as though the ceiling is the wall and the wall is the ceiling. Daughter at bedside states he is extremely restless when sleeping. Has not slept well since in the hospital. Patient denies any pa in. Is concerned about this proprioception abnormality. Physical Exam Physical Exam: Constitutional: Alert, no acute distress HEENT: Mucous membranes moist. Lungs: Decreased breath sounds CV: S1-S2, irregular Abdomen: Soft, nontender, nondistended Extremities: No significant edema Neuro: Moves all 4 extremities, no noted nystagmus Psych: Cooperative, somewhat anxious Results & Data Results & Data Vital Signs (Past 12 Hours) Vital Signs Temp Pulse Pulse Pulse Resp BP BP 05/02/24 12:41 64 05/02/24 12:40 37 C 62 20 108/63 05/02/24 11:20 64 23 05/02/24 11:02 65 22 05/02/24 07:24 71 05/02/24 07:10 70 26 H 05/02/24 06:00 71 24 115/68 05/02/24 01:50 05/02/24 01:50 36.7 C 79 20 BP Pulse Ox O2 Del Method 05/02/24 12:41 05/02/24 12:40 94 Room Air 05/02/24 11:20 93 Room Air 05/02/24 11:02 92 Room Air 05/02/24 07:24 05/02/24 07:10 92 Room Air 05/02/24 06:00 94 Room Air 05/02/24 01:50 Room Air 05/02/24 01:50 109/58 L 94 Room Air Diagnostic Findings Reviewed imaging, laboratory and diagnostic studies. Pertinent findings as below. Personally reviewed chest CT images as well as the report, moderate right pleural effusion with compressive atelectasis, no evidence of infectious infiltrate Reviewed liver ultrasound, cholelithiasis but no definite evidence of cholecystitis or bile duct obstruction Reviewed LFTs, improved over yesterday Magnesium 1.6 Sodium 134 Chloride 96 WBC 3.2 Hemoglobin 13.7 Platelets 158
[2024-05-02] MEDS: MAGNESIUM SULFATE / D5W 1 GM/100 ML BAG IV SCH (14:45)
--- NOTE | 2024-05-02 16:02 | CT Scan Report ---
CT head/brain wo con CLINICAL HISTORY: 88 years-old Male with confusion, abnormal proprioception. Acutely altered mental status TECHNIQUE: Multiple axial CT images of the head were obtained without contrast. A dose lowering tech nique was utilized adhering to the principles of ALARA. CT DOSE: 1749.73 mGy.cm COMPARISON: 05/01/2024 FINDINGS: No acute intracranial hemorrhage, midline shift, intracranial mass, hydrocephalus, or acute territori al infarct. Involutional changes with chronic microvascular ischemic disease. Asymmetric prominence o f the extra-axial space adjacent to the right cerebral hemisphere with CSF attenuation, 5 mm transver sely. This is unchanged from prior. No significant mass effect. Streak artifact from telemetry leads posterior to the head. The calvarium is intact. The paranasal sinuses, mastoid air cells, and middle ear cavities are clear . IMPRESSION: 1. Motion degraded exam without acute intracranial abnormality identified. 2. 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 3. No significant mass effect or midline shift. ACT 112: Negative or not required by law. The above report was generated using voice recognition software. It may contain grammatical, syntax o r spelling errors. Electronically signed by: Gerald Peters M.D. 05/02/2024 4:01 PM
[2024-05-02] MEDS: MAGNESIUM OXIDE 400 MG TAB PO SCH (16:33)
[2024-05-02] MEDS: MICONAZOLE NITRATE POWDER 85 GM EXT PRN (18:42)
[2024-05-02] MEDS: QUEtiapine FUMARATE 25 MG TABLET PO SCH (20:21)
--- NOTE | 2024-05-02 21:27 | Electrocardiogram Report ---
Test Reason : Blood Pressure : */* mmHG Vent. Rate : 86 BPM Atrial Rate : * BPM P-R Int : * ms QRS Dur : 138 ms QT Int : 398 ms P-R-T Axes : * -58 -6 degrees QTcB Int : 476 ms Atrial fibrillation with premature ventricular or aberrantly conducted complexes Left axis deviation Right bundle branch block Possible Lateral infarct , age undetermined Inferior infarct , age undetermined Abnormal ECG When compared with ECG of 17-Apr-2024 14:33, Atrial fibrillation has replaced AV sequential or dual chamber electronic pacemaker Confirmed by Ladarius Pandey ([id number]) on 05/02/2024 9:27:44 PM Referred By: Confirmed By: Ladarius Pandey
[2024-05-03 06:35] LABS: Hematocrit (blood only) 40.2 % (42.0-52.0); Hemoglobin 13.9 g/dl (14.0-18.0); Mean Corpuscular Hemoglobin 34.6 pg (25.0-34.0); Mean Corpuscular Hgb Conc 34.6 g/dL (32.0-36.0); Mean Platelet Volume 10.3 fL (9.4-12.4); Platelet Count 152 K/uL (130-400); RDW Coefficient of Variation 11.9 % (11.5-14.5); RDW Standard Deviation 43.8 fL (36.4-46.3); Red Blood Count 4.02 M/uL (4.70-6.10); White Blood Count 3.39 K/ul (4.8-10.8)
[2024-05-03 06:55] LABS: BUN Creatinine Ratio 27.6 (10-20); Calcium 8.2 mg/dl (8.6-10.3); Magnesium 2.3 mg/dl (1.7-2.4); Potassium 3.4 mmol/L (3.5-5.1)
--- NOTE | 2024-05-03 09:25 | XRay Report ---
XR chest 2V PA/lateral CLINICAL HISTORY: Pleural effusion COMPARISON STUDY: 05/01/2024 FINDINGS: Stable pacemaker. Stable cardiomegaly with pulmonary vascular congestion. Stable small righ t pleural effusion and consolidation at the right lung base. No pneumothorax. IMPRESSION: Stable exam. ACT 112: Negative or not required by law. Electronically signed by: Mars Jacques M.D. 05/03/2024 9:24 AM
--- NOTE | 2024-05-03 12:29 | Magnetic Resonance Report ---
MR brain wo con HISTORY: 88 years-old Male Confusion, hallucination, abnormal proprioception acutely altered mental status COMPARISON: Head CT 05/02/2024, 05/01/2024 TECHNIQUE: Multiplanar multisequence MR the brain was obtained without IV contrast. FINDINGS: Limited study secondary to patient motion. Patient was unable to complete the study. No axial T1 or T 2 images were obtained. There is no restricted diffusion to suggest acute or subacute infarct. Degenerative changes of the ce rvical spine. Partially empty sella. Involutional changes with mild to moderate patchy T2/FLAIR hyper intense foci throughout the white matter. Unchanged 5 mm subdural hematoma versus hygroma adjacent to the right cerebral hemisphere, image 18 series 6. No significant mass effect. IMPRESSION: 1. Limited exam as above. The patient was unable to complete the study. 2. No acute or subacute infarct. 3. Involutional changes with chronic microvascular ischemic disease. 4. 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 ACT 112: Negative or not required by law. The above report was generated using voice recognition software. It may contain grammatical, syntax o r spelling errors. Electronically signed by: Gerald Peters M.D. 05/03/2024 12:27 PM
--- NOTE | 2024-05-03 14:11 | Hospitalist Progress Note ---
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 MRI provides no definitive diagnosis. No evidence hepatic encephalopathy with normal ammonia level. Other laboratory studies stable. Daughter at bedside reports patient stopped taking Seroquel. Will discontinue and observe off Seroquel. Again reviewed medication list. Patient on scheduled baclofen will discontinue baclofen, this can cause Paradoxical spasticity. This may explain the myoclonic jerks with sleep Low suspicion for alcohol withdrawal at this point, patient was home only less than 24 hours prior to this admission. Before that he was at [facility] for approxi-1 week and in the hospital before that. Will discontinue CIWA scoring and as needed Ativan Replace potassium Transition to oral Lasix, pleural effusion looks about the same, at this point patient appears to be asymptomatic, family not definitively interested in doing thoracentesis at this point, hoping his mental status will improve before considering that. Will not introduce any new medications today, will observe off the baclofen and Seroquel. Continue therapies as able Continue Eliquis for secondary stroke prevention in setting of atrial fibrillation rates continue to be controlled on metoprolol Communication with case management anticipate patient will need rehab when ready for discharge Admission and Anticipated Discharge Date Admission Date: May 01, 2024 Subjective Patient still somewhat confused, at times hallucinating according to his daughter who is at the bedside. Daughter reports that patient had stopped taking Seroquel at home because he stated that it made him feel funny. It was resumed here when he was in the hospital due to the fact that it was on his med list. Physical Exam Physical Exam: Constitutional: Sleeping but easily aroused, nontoxic HEENT: Mucous membranes moist. Lungs: Clear to auscultation, decreased, no wheezes rales or rhonchi CV: S1-S2, irregular Abdomen: Soft, nontender, nondistended Extremities: No significant edema Neuro: No focal deficits, generalized weakness, myoclonic jerks witnessed while sleeping Psych: Confused, Results & Data Results & Data Vital Signs (Past 12 Hours) Vital Signs Temp Pulse Pulse Resp BP BP Pulse Ox 05/03/24 13:25 93 05/03/24 11:54 36.4 C L 59 L 20 119/60 05/03/24 07:49 36.6 C 65 16 136/73 91 05/03/24 07:47 05/03/24 07:24 72 05/03/24 02:39 36.9 C 61 18 136/79 90 O2 Del Method O2 Flow Rate 05/03/24 13:25 Nasal Cannula 1 05/03/24 11:54 Nasal Cannula 2 05/03/24 07:49 Room Air 05/03/24 07:47 Room Air 05/03/24 07:24 05/03/24 02:39 Room Air Diagnostic Findings Reviewed imaging, laboratory and diagnostic studies. Pertinent findings as below. WBCs 3.3 Hemoglobin 13.9 Platelets of 152 Potassium 3.4 Creatinine 0.87 Magnesium 2.3 Personally reviewed chest x-ray, persistent right pleural effusion Reviewed MRI brain report, no acute infarction, significant cerebral vascular disease Ammonia level 36.0
[2024-05-03] MEDS: POTASSIUM CHLORIDE CRTAB 20 MEQ TABCR PO SCH (16:04)
--- NOTE | 2024-05-03 16:14 | Cardiology Progress Note ---
Date of Service May 03, 2024 Assessment & Plan (1) New onset atrial fibrillation: (2) Acute on chronic diastolic heart failure with preserved ejection fraction: (3) Pneumonia: Plan 88-year-old male admitted after being found on floor by his daughter. Pacemaker interrogation reveals episodes of atrial fibrillation dating back to January 2024. Remains in sinus rhythm since admission. Echocardiogram demonstrates preserved LV systolic function without significant valvular pathology. Patient does not appear overtly volume overloaded after 2 doses of intravenous furosemide. CT of the chest demonstrating collapsed right lower lobe with possible pneumonia. Recommendations: * No need for additional IV diuretic therapy today * Reassess volume status, GFR, electrolytes in AM. * Transition back to outpatient, oral furosemide 40 mg twice daily in the next 24-48 hours. * Agree with cautious addition of oral anticoagulation with evidence of paroxysmal atrial fibrillation. * Heart rate remains in the 80s during periods of atrial fibrillation per ppm interrogation. * Would not add beta-will at this time due to borderline resting hypotension. * Continue low-dose losartan (outpatient dose) as ordered. * No further inpatient cardiac testing or intervention recommended at this time. * Cardiology will sign off. * Please call additional concerns/questions. Dov Patton DO, [facility] Admission and Anticipated Discharge Date Admission Date: May 01, 2024 Subjective Patient seen examined the bedside. Somnolent this afternoon. Treated with Ativan and Seroquel overnight. Remains in sinus rhythm on telemetry. Physical Exam Constitutional: well developed, well nourished and + obese Respiratory: no respiratory distress, no labored breathing and no retractions Auscultation: no crackles, no rales, no rhonchi and no wheezes Cardiovascular: Rate/Rhythm: regular rate and regular rhythm Heart Sounds: normal S1 and normal S2; no murmur Vessels: no JVD and no carotid bruit Extremities: no edema Gastrointestinal (Abdomen): Inspection/Auscultation: + abdomen abnormal to inspection, abdomen not distended and + abnormal bowel sounds Neurologic: CN's II-XI intact bilaterally and moves all extremities; no focal motor deficits Results & Data Vital Signs (Past 12 Hours) Vital Signs Temp Pulse Pulse Resp BP Pulse Ox O2 Del Method 05/03/24 15:12 63 05/03/24 13:25 93 Nasal Cannula 05/03/24 11:54 36.4 C L 59 L 20 119/60 Nasal Cannula 05/03/24 07:49 36.6 C 65 16 136/73 91 Room Air 05/03/24 07:47 Room Air 05/03/24 07:24 72 O2 Flow Rate 05/03/24 15:12 05/03/24 13:25 1 05/03/24 11:54 2 05/03/24 07:49 05/03/24 07:47 05/03/24 07:24 Laboratory Results CBC 05/03/24 Range/Units 05:38 WBC 3.39 L (4.8-10.8) K/ul RBC 4.02 L (4.70-6.10) M/uL Hgb 13.9 L (14.0-18.0) g/dl Hct 40.2 L (42.0-52.0) % Plt Count 152 (130-400) K/uL Comprehensive Metabolic Panel 05/03/24 Range/Units 05:38 Sodium 137 (136-145) mmol/L Potassium 3.4 L (3.5-5.1) mmol/L Chloride 98 (98-107) mmol/L Carbon Dioxide 31 (21-32) mmol/L BUN 24 H (6-23) mg/dl Creatinine 0.87 (0.6-1.4) mg/dl Glucose 97 (70-99(Fasting)) mg/dl Calcium 8.2 L (8.6-10.3) mg/dl Intake and Output 05/03/24 05/03/24 05/03/24 06:59 14:59 22:59 Output Total 450 / 450 325 / 325 Balance -450 / 100 -325 / -325 Output: Urine 450 / 450 325 / 325 Other: Other Intake Source sips sips (3) Pneumonia Laterality: right Lung location: lower lobe of lung Pneumonia type: due to unspecified organism Qualified Code(s): J18.9 - Pneumonia, unspecified organism
[2024-05-03] MEDS: POTASSIUM CHLORIDE / WTR 10 MEQ/100 ML PLCT IV SCH (16:39)
[2024-05-04 07:04] LABS: BUN Creatinine Ratio 31.3 (10-20); Calcium 8.2 mg/dl (8.6-10.3); Creatinine Clr Calc Pharmacy 108.2 ml/min; Potassium 3.9 mmol/L (3.5-5.1)
--- NOTE | 2024-05-04 16:07 | Hospitalist Progress Note ---
Date of Service May 04, 2024 Assessment & Plan (1) Acute metabolic encephalopathy: (2) Delirium due to another medical condition: (3) New onset atrial fibrillation: (4) Acute on chronic diastolic heart failure with preserved ejection fraction: (5) Impaired proprioception: (6) Recurrent right pleural effusion: (7) Liver cirrhosis: (8) DM (diabetes mellitus), type 2: (9) Alcohol use disorder: (10) Pacemaker: (11) Ambulatory dysfunction: (12) Asymptomatic cholelithiasis: Plan Patient's acute delirium and metabolic encephalopathy seems to be clearing. Continue to observe off baclofen and Seroquel. Continue therapies Patient's blood pressure has been adequate. Has been receiving metoprolol. Will transition to Toprol XL dosing in the morning for simplicity of dosing Patient now awake and eating better, consider restarting his diuretic tomorrow Case management pursuing authorization for rehab Daughter at bedside and updated Admission and Anticipated Discharge Date Admission Date: May 01, 2024 Subjective Nurse reports that the patient slept comfortably all night. This morning he is awake and eating breakfast. He denies any perceptual abnormalities, denies any hallucinations. Feels significantly improved. Physical Exam Physical Exam: Constitutional: Alert, interactive, nontoxic HEENT: Mucous membranes moist. Lungs: Clear to auscultation, decreased, no wheezes rales or rhonchi CV: S1-S2, irregular Abdomen: Soft, nontender, nondistended Extremities: No significant edema Neuro: No focal deficits, awake, moves all 4 extremities Psych: Cooperative, normal mood, interactive Results & Data Results & Data Vital Signs (Past 12 Hours) Vital Signs Temp Pulse Pulse Resp BP BP Pulse Ox 05/04/24 15:16 62 05/04/24 11:43 36.7 C 60 16 120/74 97 05/04/24 11:33 05/04/24 07:58 05/04/24 07:54 36.5 C 60 18 112/70 99 05/04/24 07:09 60 Pulse Ox Pulse Ox O2 Del Method O2 Flow Rate 05/04/24 15:16 05/04/24 11:43 Room Air 05/04/24 11:33 96 96 05/04/24 07:58 Nasal Cannula 1 05/04/24 07:54 Nasal Cannula 1 05/04/24 07:09 Diagnostic Findings Reviewed imaging, laboratory and diagnostic studies. Pertinent findings as below. Electrolytes stable Creatinine 0.64
[2024-05-05 07:19] VITALS: RESP 19; O2SAT 93
[2024-05-05] MEDS: METOPROLOL SUCC 25MG EXT REL TAB PO SCH (08:44)
[2024-05-05 09:40] LABS: BUN Creatinine Ratio 29.7 (10-20); Calcium 8.5 mg/dl (8.6-10.3); Creatinine Clr Calc Pharmacy 93.8 ml/min; Magnesium 1.9 mg/dl (1.7-2.4); Potassium 3.8 mmol/L (3.5-5.1)
--- NOTE | 2024-05-05 10:10 | Discharge Summary ---
Discharge Summary Date of Service May 05, 2024 Principal Dx & Hospital Course #1 = Principal Diagnosis (1) Acute metabolic encephalopathy: (2) Delirium due to another medical condition: (3) New onset atrial fibrillation: (4) Acute on chronic diastolic heart failure with preserved ejection fraction: (5) Impaired proprioception: (6) Recurrent right pleural effusion: (7) Liver cirrhosis: (8) DM (diabetes mellitus), type 2: (9) Alcohol use disorder: (10) Pacemaker: (11) Ambulatory dysfunction: (12) Asymptomatic cholelithiasis: Plan Patient is an 88-year-old gentleman who presented to the emergency room after having a fall at his home and being found on the floor by his family. Patient had just been discharged from rehab the day prior. In the emergency room was noted to be in atrial fibrillation with controlled ventricular response. He was also more confused and restless. Daughter at the bedside did note that he had evidence that he had been drinking wine since he had been home from rehab. Due to his fall, ambulatory dysfunction and atrial fibrillation was referred for further evaluation. Patient was admitted to a monitored setting. Cardiology consultation was obtained for suspected new onset atrial fibrillation. The patient just had a pacemaker placed about a year ago. On pacemaker interrogation it looks like he had been having some paroxysms of atrial fibrillation dating back to January 2024. He was started on some metoprolol for blood pressure and heart rate control also for management of his chronic diastolic congestive heart failure. He was also started on Eliquis for secondary stroke prevention. On imaging of the chest appears though he had a persistent pleural effusion. Follow-up CT confirmed a right pleural effusion with some atelectasis no definitive pneumonia. He was given IV diuresis. He did respond well to this. The right pleural effusion persisted but was asymptomatic. Family was hesitant to pursue thoracentesis especially since he was not symptomatic and was on room air. Unfortunately during his hospitalization the patient became more more confused. Head CT showed a probable old subdural with no evidence of compression of the brain. Repeat head CT was unchanged. MRI of the brain did not show any acute abnormalities. Ammonia level was normal and was not deemed that this was a hepatic encephalopathy. His electrolytes were stable and renal function was stable. It was felt that this was most likely delirium due to his medical condition, moving in and out of the hospital and rehab at home over the past few weeks and further history revealed that the patient had stopped the Seroquel on his own he had apparently felt that it had made him feel abnormal. He was complaining of some proprioception abnormalities feeling that he was standing up when he was laying down or that the ceiling was the wall and the wall was the ceiling. The Seroquel was subsequently discontinued, baclofen was discontinued as that can cause hallucinations as well. With these interventions the patient then actually was able to get some good sleep for about 24 hours and with this his mentation significantly improved. Hallucinations and proprioception issues reso lved. He does have some memory issues and intermittent confusion. Suspect he does have some underlying dementia. 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 Additionally on admission it was noted that his LFTs were somewhat abnormal. Liver ultrasound revealed cholelithiasis that was asymptomatic and no evidence of cholecystitis and liver appearance consistent with cirrhosis. This is most likely due to his history of alcohol use and possibly just fatty liver. Again no evidence of hepatic encephalopathy and his LFTs improved as he was in the hospital and was no longer drinking the wine. He was seen by therapies and was deemed a candidate for rehab. Case management was involved in his care and coordinated him to return to [facility] for ongoing rehabilitation. On the day of discharge vital signs were stable. He was eating well. Believe he is a good candidate for rehabilitation and will be discharged to [facility] for ongoing care. Updated patient's daughter to plan of care and is in agreement. Notes For Next Care Provider Avoid polypharmacy Consider outpatient sleep study testing Medication Changes From Visit Metoprolol for A-fib Eliquis for secondary stroke prevention Baclofen and Seroquel discontinued due to metabolic encephalopathy/delirium associated with these medicines Admission HPI Per Admitting Provider Patient 88-year-old gentleman who was just recently discharged from the hospital end of March to [facility] rehab. During that hospitalization he was treated for couple different infections including pneumonia, possible cellulitis. He was discharged on cefdinir to complete for full course. He had some significant ambulatory dysfunction and overall weakness. Had difficulty caring for himself and was discharged to rehab. He was just discharged from [facility] yesterday. This morning his daughter who he lives in a basement apartment found him on the floor and he could not recall how long he had been there. In the emergency room workup was significant for some increasing right pleural effusion, EKG which shows what appears to be new onset atrial fibrillation with controlled ventricular response and increasing LFTs. He was referred to our service for further evaluation. Time my evaluation patient denies any pain. Denies any shortness of breath. No chest pain, no palpitations. No nausea or vomiting. He has no recollection of how he fell. Daughter at the bedside states that it is somewhat unusual his walker was somewhat far from where he was laying on the floor. She has noticed a fair amount of restlessness with his sleep. She also shared that he would drink maybe 2 solo cups of wine on a daily basis. Now of course he was not drinking that at [facility] but he definitely had some wine last night based on the fact that there was a solo cup sitting on his desk that had wine and it. This may have contributed to his fall. He denies any abdominal pain. No new problems of his bowels or bladder. His daughter is at felt that he was maybe not quite ready to be discharged from [facility] but apparently had been doing well enough that they discharged him to continue his care at home. He denies any fever or chills. No purulent sputum. Maybe a little bit of a cough. In February he was in the hospital for [facility] arrhythmia and had a pacemaker placed at that time. Reviewing EKGs and cardiology notations do not see any mention of a previous diagnosis of atrial fibrillation. Admission Exam Per Admitting Provider See H&P Discharge Exam Constitutional: Alert HEENT: Mucous membranes moist. Lungs: Clear to auscultation, decreased, no wheezes rales or rhonchi CV: S1-S2, irregular Abdomen: Soft, nontender, nondistended Extremities: Trace pretibial edema Neuro: No focal deficits, generalized weakness Psych: Cooperative, normal mood, abnormal memory Updated Medication List Medication Instructions Recorded Confirmed Type furosemide 40 mg tablet 40 mg PO BID 09/07/20 05/01/24 History folic acid 1 mg tablet 1 mg PO QAM 03/07/23 05/01/24 History metformin 500 mg tablet 500 mg PO QAM 03/07/23 05/01/24 History acetaminophen 325 mg tablet 650 mg (2 x 325 mg) PO Q4H PRN 03/18/23 05/01/24 Rx pain #30 tabs losartan 25 mg tablet 25 mg PO DAILY #30 tabs 03/18/23 05/01/24 Rx escitalopram oxalate 10 mg tablet 10 mg PO DAILY 04/17/24 05/01/24 History quetiapine 25 mg tablet 25 mg PO HS 04/17/24 05/01/24 History vitamin B complex 1 tab PO DAILY 04/17/24 05/01/24 History baclofen 10 mg tablet 5 mg PO TID 05/01/24 05/01/24 History apixaban 5 mg tablet (Eliquis) 5 mg PO BID #60 tabs 05/05/24 Rx metoprolol succinate 25 mg 25 mg PO QAM #30 tabs 05/05/24 Rx tablet,extended release 24 hr Hospital Stay Data Consultations 05/01/24 18:26 ED Decision to Admit Stat 05/01/24 21:40 Consult Cardiology Routine Diagnostic Imagining Performed 05/01/24 15:48 CT head/brain wo con Stat 05/01/24 19:11 CT chest diagnostic wo con Routine US abdomen [US liver] Routine 05/02/24 14:54 CT head/brain wo con Urgent 05/03/24 06:40 MR brain wo con Routine Reviewed imaging, laboratory and diagnostic studies. Pertinent findings as below. MRI of the brain showed no acute or subacute infarction, chronic microvascular ischemic changes and an unchanged 5 mm chronic subdural hematoma versus hygroma Chest x-ray was stable with persistent small right pleural effusion Liver ultrasound showed liver parenchyma consistent with chronic liver disease, cholelithiasis without evidence of cholecystitis Chest CT showed pleural effusion slight collapse of the right lower lobe due to the effusion and evidence of hepatic cirrhosis Electrolytes stable Creatinine 0.74 Magnesium 1.9 Echocardiogram showed ejection fraction of 60 to 65% with left ventricular hypertrophy pulmonary pressure 39 mmHg Blood cultures no growth Pending Results Patient Have Any Pending Studies at Discharge: No Discharge Instructions Given to Patient (Per Discharging Provider) Encourage you to participate with the rehab. Strongly recommend you stop all wine, alcohol and beer once you get home Total Time Total Time Spent Total Time Spent (In Minutes): 40
[2024-05-05 11:14] VITALS: PULSE 60; TEMP 98.6
[2024-05-05] MEDS: FUROSEMIDE 40 MG TAB PO SCH (11:29)
[2024-05-05 14:30] VITALS: BP 110/59
== END 2024-05-05 15:30 | DRG 308 ==
LOC: ED 15:28 → EDINP 19:11 → 2N 05-02 11:20